=== PATIENT | female | born 1955 | race Hispanic/Latino ===

== ENCOUNTER 2018-03-09 17:00 | Inpatient (IN) | payer BC, OTHER ==
[2018-03-09 17:27] VITALS: BMI 30.5
--- NOTE | 2018-03-09 17:40 | ED PDOC ---
Arrival/HPI - General Historian: Patient - History of Present Illness Time/Duration: Prior to Arrival Symptom Onset: Sudden Symptom Course: Unchanged Activities at Onset: Light - General Time Seen by Provider: 03/09/18 17:12 - History of Present Illness Narrative History of Present Illness (Text): 03/09/18 17:28 62 yo F with PMHx of HTN, HLD, PVCs, DM, gastritis, kidney stones presenting to the ED from PMD office (Dr. Espana) for acute onset rapid Afib. Per patient, she was recently admitted to [facility] - Friday night this past week for sepsis in the setting of UTI, pyelonephritis. P atient denies any chest pain or palpitations currently. No fevers/chills, headaches, dizziness, sob, cough, abdominal pain, nausea/vomiting/diarrhea/constipation, dysuria, or changes in stool. PMHx: HTN, HLD, DM, PVCs, acute gastritis, kidney stones PSHx: denies Allergies: Sulfa--itchiness Home Medications: Livalo 2 mg PO daily, Januvet , Efflexor 75 mg PO daily, Coreg 40 mg PO daily, Amlodipine 10 mg PO daily, Losartan/HCTZ 100-25 PO daily, Xanax 0.5 mg PO TID prn, multivitamin 1 tablet daily, calcium + D3 1 tablet daily, ASA 81 mg PO daily, Pepcid 40 mg PO daily Social Hx: denies alcohol, tobacco, illicit drug use FHx: unknown PMD: Dr. 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 Cornejo ([facility]) Past Medical History - Provider Review Nursing Documentation Reviewed: Yes - Travel History Have you recently traveled outside [place] w/in the past 3 mons?: No Family/Social History - Physician Review Nursing Documentation Reviewed: Yes Family/Social History: Unknown Family HX Smoking Status: Never Smoked Hx Alcohol Use: No Hx Substance Use: No Hx Substance Use Treatment: No Allergies/Home Meds Allergies/Adverse Reactions: Allergies Sulfa (Sulfonamide Antibiotics) Allergy (Verified 03/09/18 17:27) ITCHING Home Medications: Home Meds Medication Instructions Recorded Confirmed Alprazolam [Xanax] 0.5 mg PO TID 03/09/18 03/09/18 Aspirin [Aspirin Chewable] 81 mg PO DAILY 03/09/18 03/09/18 Carvedilol [Coreg CR] 40 mg PO DAILY 03/09/18 03/09/18 Famotidine [Pepcid] 40 mg PO DAILY 03/09/18 03/09/18 Losartan/Hydrochlorothiazide 1 each PO DAILY 03/09/18 03/09/18 [Losartan-Hctz 100-25 mg Tab] Multivitamin/Iron/Folic Acid 1 each PO DAILY 03/09/18 03/09/18 [Multi Complete-Iron Tablet] Pitavastatin Calcium [Livalo] 2 mg PO DAILY 03/09/18 03/09/18 Sitagliptin Phos/Metformin HCl 1 each PO BID 03/09/18 03/09/18 [Janumet 50-1,000 mg Tablet] Venlafaxine [Effexor-XR] 75 mg PO DAILY 03/09/18 03/09/18 amLODIPine [Norvasc] 10 mg PO DAILY 03/09/18 03/09/18 Review of Systems - Review of Systems Constitutional: Normal Eyes: Normal ENT: Sinus Congestion Respiratory: Normal. absent: SOB, Cough, Wheezing Cardiovascular: Normal. absent: Chest Pain, Palpitations, Edema, Calf Pain, Syncope Gastrointestinal: Normal. absent: Abdominal Pain, Constipation, Diarrhea, Naus ea, Vomiting Genitourinary Female: Normal. absent: Dysuria, Frequency, Urine Output Changes Musculoskeletal: Normal Skin: Normal Neurological: Normal Endocrine: Normal Psychiatric: Normal Physical Exam Vital Signs Reviewed: Yes Temperature: Afebrile Blood Pressure: Hypotensive Pulse: Tachycardic Respiratory Rate: Normal Appearance: Positive for: Non-Toxic, Other (anxious) Mental Status: Positive for: Alert and Oriented X 3 - Systems Exam Head: Present: Atraumatic, Normocephalic Pupils: Present: PERRL Extroacular Muscles: Present: EOMI Conjunctiva: Present: Normal Mouth: Present: Moist Mucous Membranes Neck: Present: Normal Range of Motion Respiratory/Chest: Present: Clear to Auscultation. No: Respiratory Distress, Accessory Muscle Use, Wheezes, Rales, Rhonchi Cardiovascular: Present: Normal S1, S2, Irregular Rhythm Abdomen: Present: Normal Bowel Sounds. No: Tenderness, Distention, Rebound, Guarding, Mass/Organomegaly Back: Present: Normal Inspection Upper Extremity: Present: Normal Inspection, Normal ROM, NORMAL PULSES, Capillary Refill < 2s. No: Cyanosis, Edema Lower Extremity: Present: Normal Inspection, NORMAL PULSES, Capillary Refill < 2 s. No: Edema, CALF TENDERNESS, Tenderness Neurological: Present: CN II-XII Intact, Speech Normal, Motor Func Grossly Intact, Normal Sensory Function Skin: Present: Warm, Dry, Normal Color Psychiatric: Present: Alert, Oriented x 3, Normal Insight, Normal Concentration, Anxious Vital Signs Temp Pulse Resp BP Pulse Ox 03/09/18 18:40 144 H 120/79 03/09/18 17:54 166 H 117/53 L 03/09/18 17:39 98.0 F 123 H 18 105/59 L 98 Medical Decision Making - RAD Interpretation Acid Strength Inspector: ED Physician ED Course and Treatment: 03/09/18 19:[address] Noy Brito, ICU physician, and reviewed case. Patient to be given dose of beta-garrett and cleared for telemetry admission. (Theron Perez DO) 03/09/18 17:48 Impression: 62 yo F with PMHx of HTN, PVCs, DM, gastritis presenting to the ED with acute onset afib. Plan: -- CBC, CMP -- TSH, free T3 -- JOSE JUAN panel -- UA -- UCx, BCx -- CXR -- EKG -- monitor and disposition (Chuckie Robin) - Lab Interpretations Lab Results: 03/09/18 17:45 03/09/18 17:45 Lab Results 03/09/18 17:45: Total T3 0.99, TSH 3rd Generation 4.39 03/09/18 17:45: Sodium 137, Potassium 4.0, Chloride 99, Carbon Dioxide 27, Anion Gap 15, BUN 17, Creatinine 1.0, Est GFR ( Amer) > 60, Est GFR (Non-Af Amer) 56, Random Glucose 175 H, Calcium 9.0, Magnesium 1.6 L, Total Bilirubin 0.7, AST 32, ALT 29, Alkaline Phosphatase 156 H, Lactate Dehydrogenase 584, Total Creatine Kinase 25 L, Troponin I 0.03, Total Protein 6.9, Albumin 3.5, Globulin 3.4, Albumin/Globulin Ratio 1.0 L 03/09/18 17:45: WBC 19.1 H, RBC 3.86, Hgb 11.9 L, Hct 35.0 L, MCV 90.7, MCH 30.8, MCHC 34.0, RDW 13.7, Plt Count 315, MPV 10.1, Gran % 72.8 H, Lymph % (Auto) 14.7 L, [place] % (Auto) 11.6 H, Eos % (Auto) 0.6 L, Baso % (Auto) 0.3, Gran # 13.87 H, Lymph # (Auto) 2.8, [place] # (Auto) 2.2 H, Eos # (Auto) 0.1, Baso # (Auto) 0.05 - RAD Interpretation Narrative RAD Interpretations (Text): 03/09/18 17:53 No acute findings on CXR (Chuckie Robin) Radiology Orders: 03/09/18 17:28 CHEST PORTABLE [RAD] Stat - Medication Orders Current Medication Orders: Sodium Chloride (Sodium Chloride 0.9%) 1,000 mls @ 250 mls/hr IV .Q4H ONE Stop: 03/09/18 22:13 Last Admin: 03/09/18 18:42 Dose: 250 mls/hr eMAR Start Stop Document 03/09/18 18:42 EQ (Rec: 03/09/18 18:42 EQ [id number]) Intravenous Solution Start Date 03/09/18 Start Time 18:42 Discontinued Medications Diltiazem HCl (Cardizem) 20 mg IVP STAT STA Stop: 03/09/18 17:30 Last Admin: 03/09/18 17:54 Dose: 20 mg IVP Administration Document 03/09/18 17:54 EQ (Rec: 03/09/18 17:54 EQ [id number]) Charges for Administration # of IVP Administrations 1 MAR Pulse and Blood Pressure Document 03/09/18 17:54 EQ (Rec: 03/09/18 17:54 EQ [id number]) Pulse Pulse Rate (60-90) 166 Blood Pressure Blood Pressure (100/60-150/90) 117/53 Diltiazem HCl (Cardizem) 20 mg IVP STAT STA Stop: 03/09/18 18:15 Last Admin: 03/09/18 18:40 Dose: 20 mg IVP Administration Document 03/09/18 18:40 EQ (Rec: 03/09/18 18:42 EQ [id number]) Charges for Administration # of IVP Administrations 1 MAR Pulse and Blood Pressure Document 03/09/18 18:40 EQ (Rec: 03/09/18 18:42 EQ [id number]) Pulse Pulse Rate (60-90) 144 Blood Pressure Blood Pressure (100/60-150/90) 120/79 Metoprolol Tartrate (Lopressor) 5 mg IVP STAT STA Stop: 03/09/18 19:17 Disposition/Present on Arrival - Present on Arrival Any Indicators Present on Arrival: No - Disposition Have Diagnosis and Disposition been Completed?: Yes Disposition Time: 19:26 - Disposition Diagnosis: Uncontrolled atrial fibrillation Disposition: HOSPITALIZED Condition: STABLE Referrals: Evangelist Espana MD [Primary Care Provider] - Follow up with primary
--- NOTE | 2018-03-09 17:47 | RAD ---
Date of service: 03/09/2018 HISTORY: r/o infiltrate COMPARISON: No prior. FINDINGS: LUNGS: The lungs are well inflated. There is mild pulmonary venous congestion PLEURA: No significant pleural effusion identified, no pneumothorax apparent. CARDIOVASCULAR: Moderate cardiomegaly with left ventricular hypertrophy. OSSEOUS STRUCTURES: No significant abnormalities. VISUALIZED UPPER ABDOMEN: Normal. OTHER FINDINGS: None. IMPRESSION: No active pulmonary disease.
[2018-03-09 17:51] LABS: BASO # 0.05 K/mm3 (0.0-2.0); BASO % 0.3 % (0.0-3.0); EOS # 0.1 (0.0-0.7); EOS % 0.6 % (1.5-5.0); GRAN # 13.87 (1.4-6.5); GRAN % 72.8 % (50.0-68.0); HEMOGLOBIN 11.9 g/dL (12.0-16.0); LYMPH # 2.8 (1.2-3.4); LYMPH % 14.7 % (22.0-35.0); MEAN CELL VOLUME 90.7 fl (80.0-105.0); MEAN CORPUSCULAR HEMOGLOBIN 30.8 pg (25.0-35.0); MEAN PLATELET VOLUME 10.1 fl (7.0-11.0); MONO # 2.2 (0.1-0.6); MONO % 11.6 % (1.0-6.0); RBC 3.86 10^6/uL (3.5-6.1); RED CELL DISTRIBUTION WIDTH 13.7 % (11.5-14.5); WHITE BLOOD COUNT 19.1 10^3/ul (4.5-11.0)
[2018-03-09 18:00] LABS: ALBUMIN 3.5 g/dL (3.0-4.8); BLOOD UREA NITROGEN 17 mg/dL (7-21); GFR NON-AFRICAN AMERICAN 56
[2018-03-09 18:02] LABS: ALT/SGPT 29 U/L (7-56); AST/SGOT 32 U/L (14-36)
[2018-03-09 18:12] LABS: TROPONIN I 0.03 ng/mL
[2018-03-09] MEDS ORDERED: Sodium Chloride 0.9% 1,000 ML IV ONE (18:14)
[2018-03-09 18:43] LABS: T3 0.99 ng/mL (0.97-1.69)
[2018-03-09] MEDS ORDERED: Metoprolol 1 mg/ml Inj IVP STA (19:16)
[2018-03-09] MEDS ORDERED: Digoxin 500 mcg/2ml (0.5 mg/2ml) Inj IVP STA (19:36)
[2018-03-09] MEDS ORDERED: Sodium Chloride 0.9% 500 ML IV STA (19:52)
[2018-03-09 20:14] LABS: VENOUS BLOOD GAS PO2 82 mm/Hg (30-55); VENOUS BLOOD PH 7.38 (7.32-7.43)
[2018-03-09 20:31] VITALS: PULSE 140
[2018-03-09] MEDS ORDERED: Enoxaparin 80 mg Syringe SC SCH (21:15)
--- NOTE | 2018-03-09 22:41 | CP.PCM.CON ---
<Karen Rowley - Last Filed: 03/10/18 00:59> History of Present Illness - History of Present Illness History of Present Illness: ICU CONSULT NOTE FOR DR. FELIPE Rowley D.O. PGY-1 CC: Atrial fibrillation with rvr. Pt hypotensive after administration of cardizem. Leukocytosis 62 y/o F with PMH of previous PVCs, HTN, HLD, DM, Gastritis, Nephrolithiasis presented to [facility] after visiting his PMD Dr. Espana for a follow-up appointment. As per pt, she had recently been admitted to [facility] last week for UTI/pyelonephritis. She was initially admitted to ICU and subsequently transferred to medicine floors for monitoring at [facility]. She was eventually discharged with home antibiotics which she had not taken. Pt was sent to ED after being found to be in afib w/RVR during her outpatient visit this afternoon. She reports that she wasn't having any symptoms while at clinic, and was following up for "chronic gastritis" symptoms. She reports never having been diagnosed with atrial fibrillation previously and reports that she occasionally has feelings of "fluttering" without symptoms of chest pain, diophoresis, nausea, vomiting or sweating. 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 Cornejo, and had previously underwent a stress test for which she doesn't know the results. She denies fevers, chills, nausea, vomiting, headache, dizziness, chest pain, palpitations, nausea, vomiting, diarrhea, dysuria, hematuria. PMH: HTN, HLD, PVC, DM, Gastritis, Nephrolithiasis All: Sulfa PSH: b/l hip replacement, L elbow fracture, D&C SH: Denies smoking/alcohol/illicit drug use Hosp: [facility] last week for pyelonephritis/UTI (per pt) FH: Father: HTN. Mother: denies Meds: See AUG. Reviewed PMD: Dr. Espana Photo Checker: Dr. Cornejo Review of Systems - Review of Systems Review of Systems: as per HPI Past Patient History - Past Social History Smoking Status: Never Smoked - CARDIAC Hx Cardiac Disorders: Yes Hx Hypertension: Yes - RENAL Other/Comment: history of urosepsis - ENDOCRINE/METABOLIC Hx Endocrine Disorders: Yes Hx Diabetes Mellitus Type 2: Yes - MUSCULOSKELETAL/RHEUMATOLOGICAL Hx Arthritis: Yes - GENITOURINARY/GYNECOLOGICAL Hx Urinary Tract Infection: Yes - PSYCHIATRIC Hx Substance Use: No - SURGICAL HISTORY Hx Surgeries: Yes Hx Musculoskeletal Surgery: Yes (bilat hip) Hx Orthopedic Surgery: Yes (elbow) Hx Tonsillectomy: Yes - ANESTHESIA Hx Anesthesia: Yes Hx Anesthesia Reactions: No Hx Malignant Hyperthermia: No Meds Allergies/Adverse Reactions: Allergies Allergy/AdvReac Type Severity Reaction Status Date / Time Sulfa (Sulfonamide Allergy ITCHING Verified 03/09/18 17:27 Antibiotics) - Medications Medications: Current Medications Alprazolam (Xanax) 0.5 mg PO TID JAK PRN Reason: Protocol Aspirin (Aspirin Chewable) 81 mg PO DAILY JAK Docusate Sodium (Colace) 100 mg PO DAILY JAK Enoxaparin Sodium (Lovenox) 70 mg SC Q12H JAK PRN Reason: Protocol Famotidine (Pepcid) 40 mg PO DAILY [facility] Hydrochlorothiazide (Hydrodiuril) 25 mg PO DAILY [facility] Piperacillin Sod/Tazobactam Sod (Zosyn 3.375 In Ns 100ml) 100 mls @ 200 mls/hr IVPB Q6 JAK PRN Reason: Protocol Stop: 03/10/18 06:29 Gentamicin Sulfate 100 mg/ (Sodium Chloride) 102.5 mls @ 200 mls/hr IVPB Q12H JAK PRN Reason: Protocol diltiaZEM IVPB 100mg in NS (Cardizem 100mg In Ns) 100 mls @ 5 mls/hr IV .Q20H PRN; Protocol; 5 MG/HR PRN Reason: TITRATE PER MD ORDER Insulin Human Regular (Humulin R Low) 0 units SC ACHS JAK PRN Reason: Protocol Losartan Potassium (Cozaar) 100 mg PO DAILY [facility] Non-Formulary Medication (Carvedilol [Coreg Cr]) 40 mg PO DAILY JAK Venlafaxine HCl (Effexor Xr) 75 mg PO DAILY [facility] Physical Exam - Constitutional Appears: Well, Non-toxic, No Acute Distress - Head Exam Head Exam: NORMAL INSPECTION, NORMOCEPHALIC - Eye Exam Eye Exam: EOMI, Normal appearance - ENT Exam ENT Exam: Mucous Membranes Moist, Normal Exam - Neck Exam Neck exam: Positive for: Normal Inspection - Respiratory Exam Respiratory Exam: Clear to Auscultation Bilateral, NORMAL BREATHING PATTERN - Cardiovascular Exam Cardiovascular Exam: Tachycardia, Irregular Rhythm, +S1, +S2 - GI/Abdominal Exam GI & Abdominal Exam: Soft. absent: Rebound, Tenderness Additional comments: (-) suprapubic tenderness - Back Exam Back exam: NORMAL INSPECTION. absent: CVA tenderness (L), CVA tenderness (R) - Neurological Exam Neurological exam: Alert, Oriented x3 - Psychiatric Exam Psychiatric exam: Normal Affect, Normal Mood - Skin Skin Exam: Dry, Intact, Warm Results - Vital Signs Recent Vital Signs: Last Vital Signs Temp 98.0 F 03/09/18 17:39 Pulse 128 H 03/09/18 21:01 Resp 20 03/09/18 21:01 BP 131/52 L 03/09/18 21:01 Pulse Ox 98 03/09/18 21:01 - Labs Result Diagrams: 03/09/18 17:45 03/09/18 17:45 Labs: Laboratory Results - last 24 hr 03/09/18 20:09 pO2 82 H VBG pH 7.38 VBG pCO2 49.0 VBG HCO3 29.0 H VBG Total CO2 30.5 H VBG O2 Sat (Calc) 97.6 H VBG Base Excess 3.0 H VBG Potassium 4.1 Sodium 136.0 Chloride 104.0 Glucose 179 H Lactate 1.5 FiO2 21.0 Venous Blood Potassium 4.1 Assessment & Plan - Assessment and Plan (Free Text) Assessment: 62 y/o F with pmhx of HTN, HLD, PVC, DM, Gastritis, Nephrolithiasis admitted to telemetry for new-onset atrial fibrillation with RVR. ICU was consulted as pt was found to be hypotensive after receiving cardizem in ER. She was also found to have leukocytosis with WBC of 19.1. On telemetry, patient asymptomatic still in afib w/ RVR. She has been started on cardizem drip, cardiology has been consulted. Pt was recently admitted to [facility] for UTI/pyelonephritis and treated with IV antibiotics. She was discharged with home abx which she has not been taking. Plan: Neuro Pt A&O x 3, NAD [place] as necessary Cardio In new-onset Afib w/ RVR with HR in 130s. Pt found in Afib RVR today afternoon (<24 hours) in outpatient clinic [id number] score: 3 Received cardizem 20mg IVP x 2, Digoxin 0.25 IVP in ED. Was hypotensive in ED with BP 70/50s. Returned to normotensive and transferred to telemetry floor Asymptomatic Titrate cardizem drip Start therapeutic Lovenox 90 mg (1mg/kg) bid Bridge lovenox to warfarin with INR goal 2.0-3.0 f/u Echocardiogram Consult cardiology, appreciate recs Pulm Chest CTA b/l u/l lobes Pt denies SOB, wheezing GI Pt complains of constipation. Start colace Pepcid for GI ppx Recently admitted for UTI/Pyelonephritis Pt afebrile, normotensive. WBC 19.1 Empiric Zosyn/Gentamicin/Cefepime started F/u procalcitonin f/u U/A f/u Urine/blood cx No CVA tenderness b/l. No suprapubic tenderness. ID Recently admitted for UTI/pyelonephritis WBC 19.1, Lactate 1.5 normotensive, afebrile Received 500mL bolus of NS and 1L @ 250ML/hr in ED. F/u Echo for systolic function Start empiric treament with zosyn/gentamicin. Continue with cefepime F/u u/a, urine/blood cultures/ procalcitonin Endocrine Pt has hx of DM Start SS insulin f/u Hgb A1c f/u lipid panel f/u TSH Heme Start lovenox 90 mg (1mg/kg) bid bridge lovenox to warfarin with INR goal 2.0-3.0 f/u pt/ptt/inr f/u D-Dimer Pt seen, examined and discussed with attending physician, Dr. Brito. Further recs per her. <Demarco Brito - Last Filed: 03/10/18 19:00> Meds - Medications Medications: Current Medications Alprazolam (Xanax) 0.5 mg PO TID [facility]; Protocol Last Admin: 03/10/18 17:19 Dose: 0.5 mg Aspirin (Aspirin Chewable) 81 mg PO DAILY JAK Last Admin: 03/10/18 10:00 Dose: 81 mg Docusate Sodium (Colace) 100 mg PO DAILY [facility] Last Admin: 03/10/18 10:00 Dose: 100 mg Enoxaparin Sodium (Lovenox) 90 mg SC Q12H JAK; Protocol Last Admin: 03/10/18 12:00 Dose: 90 mg Famotidine (Pepcid) 40 mg PO DAILY [facility] Last Admin: 03/10/18 10:00 Dose: 40 mg Hydrochlorothiazide (Hydrodiuril) 25 mg PO DAILY [facility] Last Admin: 03/10/18 10:00 Dose: 25 mg diltiaZEM IVPB 100mg in NS (Cardizem 100mg In Ns) 100 mls @ 5 mls/hr IV .Q20H PRN; Protocol PRN Reason: TITRATE PER MD ORDER Last Admin: 03/10/18 14:04 Dose: 10 mg/hr, 10 mls/hr Cefepime HCl (Maxipime 1gm) 1 gm in 100 mls @ 100 mls/hr IVPB Q8 [facility]; Protocol Last Admin: 03/10/18 13:57 Dose: 100 mls/hr Insulin Human Regular (Humulin R Low) 0 units SC ACHS [facility]; Protocol Last Admin: 03/10/18 17:18 Dose: 1 u Losartan Potassium (Cozaar) 100 mg PO DAILY [facility] Last Admin: 03/10/18 10:00 Dose: 100 mg Non-Formulary Medication (Carvedilol [Coreg Cr]) 40 mg PO DAILY [facility] Last Admin: 03/10/18 13:44 Dose: Not Given Venlafaxine HCl (Effexor Xr) 75 mg PO DAILY [facility] Last Admin: 03/10/18 10:00 Dose: 75 mg Warfarin Sodium (Coumadin) 2 mg PO 1800 [facility]; Protocol Last Admin: 03/10/18 17:19 Dose: 2 mg Results - Vital Signs Recent Vital Signs: Last Vital Signs Temp 98.3 F 03/10/18 12:00 Pulse 102 H 03/10/18 12:00 Resp 18 03/10/18 12:00 BP 117/69 03/10/18 12:00 Pulse Ox 96 03/10/18 00:01 - Labs Result Diagrams: 03/10/18 06:20 03/09/18 17:45 Labs: Laboratory Results - last 24 hr 03/09/18 03/09/18 03/10/18 20:09 23:27 00:02 WBC RBC Hgb Hct MCV MCH MCHC RDW Plt Count MPV Gran % Lymph % (Auto) [place] % (Auto) Eos % (Auto) Baso % (Auto) Gran # Lymph # (Auto) [place] # (Auto) Eos # (Auto) Baso # (Auto) PT INR D-Dimer, Quantitative pO2 82 H VBG pH 7.38 VBG pCO2 49.0 VBG HCO3 29.0 H VBG Total CO2 30.5 H VBG O2 Sat (Calc) 97.6 H VBG Base Excess 3.0 H VBG Potassium 4.1 Sodium 136.0 Chloride 104.0 Glucose 179 H Lactate 1.5 FiO2 21.0 POC Glucose (mg/dL) 154 H Hemoglobin A1c Triglycerides Cholesterol LDL Cholesterol Direct HDL Cholesterol Procalcitonin 4.25 H TSH 3rd Generation Venous Blood Potassium 4.1 03/10/18 03/10/18 03/10/18 00:02 06:20 06:20 WBC 15.7 H RBC 3.31 L Hgb 9.9 L D Hct 30.1 L MCV 90.9 MCH 29.9 MCHC 32.9 RDW 13.8 Plt Count 334 MPV 10.3 Gran % 74.5 H Lymph % (Auto) 13.6 L [place] % (Auto) 10.8 H Eos % (Auto) 0.8 L Baso % (Auto) 0.3 Gran # 11.70 H Lymph # (Auto) 2.1 [place] # (Auto) 1.7 H Eos # (Auto) 0.1 Baso # (Auto) 0.04 PT 13.8 H INR 1.21 D-Dimer, Quantitative 4252 H pO2 VBG pH VBG pCO2 VBG HCO3 VBG Total CO2 VBG O2 Sat (Calc) VBG Base Excess VBG Potassium Sodium Chloride Glucose Lactate FiO2 POC Glucose (mg/dL) Hemoglobin A1c Triglycerides 140 Cholesterol 70 L LDL Cholesterol Direct < 30 HDL Cholesterol 15 L Procalcitonin TSH 3rd Generation Venous Blood Potassium 03/10/18 03/10/18 03/10/18 06:20 06:20 07:21 WBC RBC Hgb Hct MCV MCH MCHC RDW Plt Count MPV Gran % Lymph % (Auto) [place] % (Auto) Eos % (Auto) Baso % (Auto) Gran # Lymph # (Auto) [place] # (Auto) Eos # (Auto) Baso # (Auto) PT INR D-Dimer, Quantitative pO2 VBG pH VBG pCO2 VBG HCO3 VBG Total CO2 VBG O2 Sat (Calc) VBG Base Excess VBG Potassium Sodium Chloride Glucose Lactate FiO2 POC Glucose (mg/dL) 143 H Hemoglobin A1c 6.8 H Triglycerides Cholesterol LDL Cholesterol Direct HDL Cholesterol Procalcitonin TSH 3rd Generation 3.17 Venous Blood Potassium 03/10/18 11:09 WBC RBC Hgb Hct MCV MCH MCHC RDW Plt Count MPV Gran % Lymph % (Auto) [place] % (Auto) Eos % (Auto) Baso % (Auto) Gran # Lymph # (Auto) [place] # (Auto) Eos # (Auto) Baso # (Auto) PT INR D-Dimer, Quantitative pO2 VBG pH VBG pCO2 VBG HCO3 VBG Total CO2 VBG O2 Sat (Calc) VBG Base Excess VBG Potassium Sodium Chloride Glucose Lactate FiO2 POC Glucose (mg/dL) 267 H Hemoglobin A1c Triglycerides Cholesterol LDL Cholesterol Direct HDL Cholesterol Procalcitonin TSH 3rd Generation Venous Blood Potassium Addendum Addendum: 03/10/18 18:52 with hx of htn ,dm hdl . prented to ER for atrial fib with rapid vent rate ,in the ER pt was given cardiazem 20 mg x2 with drop of bp to 97 systolic and hr sti ll in 130 could not be placed on cardiazem drip so icu consult was called . pt recently was admitted to [facility] fo uti and d/c with antibiotic Rx which pt did not fill and was not feeling goog went to see PMD where she was noted with atrial f ib with rapid vent rate and low bp was sent to er for further management pt had wbc of 19,000. so i rx fluid bolous and bp increased to [address] arted also on antibiotics with kothari c/s . and pt was admitted to telemetry.
[2018-03-09] MEDS: Cefepime 1gm in NS 100ml 1 GM/100 ML BAG IVPB SCH (23:32)
[2018-03-09] MEDS: diltiaZEM IVPB 100mg in NS 100 ML IV PRN (23:33)
[2018-03-10] MEDS ORDERED: Piperacillin/Tazobact 3.375 gm 100 ML IVPB SCH
[2018-03-10 00:35] LABS: INR 1.21; PROTHROMBIN TIME 13.8 SECONDS (9.4-12.5)
[2018-03-10] MEDS: Insulin Reg-LOW-Coverage SC SCH ×5 (01:03→22:24)
[2018-03-10] MEDS: Enoxaparin 100 mg Syringe SC SCH ×3 (01:03→23:25)
[2018-03-10] MEDS: Cefepime 1gm in NS 100ml 1 GM/100 ML BAG IVPB SCH ×3 (06:11→22:32)
[2018-03-10 07:34] LABS: BASO # 0.04 K/mm3 (0.0-2.0); BASO % 0.3 % (0.0-3.0); EOS # 0.1 (0.0-0.7); EOS % 0.8 % (1.5-5.0); GRAN # 11.7 (1.4-6.5); GRAN % 74.5 % (50.0-68.0); HEMOGLOBIN 9.9 g/dL (12.0-16.0); LYMPH # 2.1 (1.2-3.4); LYMPH % 13.6 % (22.0-35.0); MEAN CELL VOLUME 90.9 fl (80.0-105.0); MEAN CORPUSCULAR HEMOGLOBIN 29.9 pg (25.0-35.0); MEAN CORPUSCULAR HGB CONC 32.9 g/dl (31.0-37.0); MEAN PLATELET VOLUME 10.3 fl (7.0-11.0); MONO # 1.7 (0.1-0.6); MONO % 10.8 % (1.0-6.0); RBC 3.31 10^6/uL (3.5-6.1); RED CELL DISTRIBUTION WIDTH 13.8 % (11.5-14.5); WHITE BLOOD COUNT 15.7 10^3/ul (4.5-11.0)
[2018-03-10 07:46] LABS: HDL CHOLESTEROL 15 mg/dL (29-60)
[2018-03-10 07:57] LABS: LDL CHOLESTEROL < 30 mg/dL (0-129)
--- NOTE | 2018-03-10 09:48 | CARD ---
APPROVED REPORT Date of service: 03/09/2018 EKG Measurement Heart [id number] <Conclusion> Atrial fibrillation with rapid ventricular response Nonspecific ST abnormality
--- NOTE | 2018-03-10 09:55 | HP ---
HISTORY OF PRESENT ILLNESS: A 62-year-old white female, history of hip replacement in the past. The patient recently was discharged approximately 48 hours ago from [facility]. She had gone to the outpatient [facility] ER on [address] in [place], was found to have a low blood pressure, a low-grade fever and elevated white blood cells count. The patient because of the hypotension was transferred to [place] from the ER at [facility] and was admitted to the Intensive Care Unit where she was rehydrated and eventually was transferred to the floor, was found to have a cholelithiasis without cholecystitis, found to have a nephrolithiasis without obstruction, eventually was hydrated and discharged home. The patient came to my office approximately 48 hours after her discharge, seen in my office, complaining of chills, sweating, lightheadedness, dizziness. The patient was found in the office to have rapid atrial fibrillation ventricular response of 150 and new onset of atrial fibrillation. The patient recently had a colonoscopy. Does state that she did not have prophylactic antibiotics despite having a hip replacement several years ago. The patient was transferred to the emergency room at [facility] and admitted. REVIEW OF SYSTEMS: Positive only for diaphoresis, dizziness, lightheadedness. The patient denies chest pain, shortness of breath, palpitations, fever, chills. The patient denies any nausea or vomiting. Denies any constipation or diarrhea or blood per rectum. The patient denies any cough, shortness of breath or sputum production. The patient denies any headache, change in mental status, any loss of feeling in the upper or lower extremity, any loss of strength in the upper or lower extremities and any change in her vision or speech. PAST MEDICAL HISTORY: Only pertinent for hypertension, hip replacement, history of breast cancer in the past. The patient also has a history of noninsulin-dependent diabetes mellitus. ALLERGIES: THE PATIENT HAS NO KNOWN ALLERGIES. SOCIAL HISTORY: She has history of only social alcohol use and no history of IV drug abuse. The patient is a nonsmoker. FAMILY HISTORY: Only pertinent for degenerative arthritis, hypertension and prostate cancer in her father, breast cancer in her mother. MEDICATIONS: At home, she was taking losartan, hydrochlorothiazide and insulin. She is also at home taking iron, aspirin, losartan and hydrochlorothiazide, Xanax, amlodipine, Effexor, carvedilol, Janumet and Livalo for cholesterol. PHYSICAL EXAMINATION: GENERAL: Physical examination shows a well-developed, slightly obese white female, in mild distress. HEENT: Essentially within normal limits. HEART: Irregular rate and rhythm with elevated ventricular response. CHEST: Clear to auscultation. ABDOMEN: Distended. Bowel sounds are hypoactive. There is no organomegaly. There are no masses palpable. EXTREMITIES: Without cyanosis, clubbing or edema. IMPRESSION: New onset of atrial fibrillation in a patient with a history of hypertension, noninsulin-dependent diabetes mellitus, hypercholesterolemia, anxiety disorder and recent admission with sepsis syndrome to [facility] and hypertension. Evangelist Espana MD
[2018-03-10] MEDS ORDERED: Non Formulary Medication (Losartan/Hydrochlorothiazide [Losartan-Hctz 100-25 Mg Tab] 1 EAC PO SCH (10:00)
[2018-03-10] MEDS: Venlafaxine 75 mg ER Cap PO SCH (10:00)
[2018-03-10] MEDS: Non Formulary Medication (Carvedilol [Coreg Cr] 40 MG) PO SCH (13:44)
[2018-03-10] MEDS: diltiaZEM IVPB 100mg in NS 100 ML IV PRN ×2 (14:04→20:37)
--- NOTE | 2018-03-10 18:18 | CARD ---
APPROVED REPORT Date of service: 03/10/2018 EXAM: Two-dimensional and M-mode echocardiogram with Doppler and color Doppler. INDICATION Atrial Fibrillation 2D DIMENSIONS Left Atrium (2D)5.0 (1.6-4.0cm)IVSd1.4 (0.7-1.1cm) LVDd4.5 (3.9-5.9cm)PWd1.3 (0.7-1.1cm) LVDs3.4 (2.5-4.0cm)FS (%) 24.3 % LVEF (%)49.0 (>50%) M-Mode DIMENSIONS Aortic Root2.50 (2.2-3.7cm)Aortic Cusp Exc.1.80 (1.5-2.0cm) Aortic Valve AoV Peak Qsbwmcha946.0cm/Matthias Peak GR.16mmHg Mitral Valve E/A ratio0.0 TDI E/Lateral E'0.0E/Medial E'0.0 Tricuspid Valve TR Peak [id number] [id number] Peak Gr.32mmHg [id number] LEFT VENTRICLE The left ventricle is normal size. There is mild concentric left ventricular hypertrophy. The left ventricular function is normal. The left ventricular ejection fraction is within the normal range. There is normal LV segmental wall motion. RIGHT VENTRICLE The right ventricle is normal size. The right ventricular systolic function is normal. ATRIA The left atrium is moderately dilated. The right atrium size is normal. The interatrial septum is intact with no evidence for an atrial septal defect. AORTIC VALVE The aortic valve is mildly sclerotic. There is trace aortic regurgitation. There is no aortic valvular stenosis. MITRAL VALVE The mitral valve is moderately thickened. Mitral regurgitation is moderate to severe. TRICUSPID VALVE The tricuspid valve is normal in structure. There is mild tricuspid regurgitation. PULMONIC VALVE The pulmonary valve is normal in structure. GREAT VESSELS The aortic root is normal in size. The IVC is normal in size and collapses >50% with inspiration. PERICARDIAL EFFUSION There is no pleural effusion. There is no pericardial effusion. <Conclusion> Dilated LA. Normal LV size and systolic function. Mild concentric LVH. Moderate to severe MR. Mild TR.
[2018-03-11] MEDS: diltiaZEM IVPB 100mg in NS 100 ML IV PRN ×2 (01:45→05:39)
[2018-03-11] MEDS: Cefepime 1gm in NS 100ml 1 GM/100 ML BAG IVPB SCH ×3 (05:19→20:59)
[2018-03-11 06:47] VITALS: O2SAT 96
[2018-03-11 09:48] LABS: BASO # 0.02 K/mm3 (0.0-2.0); BASO % 0.2 % (0.0-3.0); EOS # 0.1 (0.0-0.7); EOS % 0.8 % (1.5-5.0); GRAN # 9.01 (1.4-6.5); GRAN % 72.4 % (50.0-68.0); HEMOGLOBIN 10.8 g/dL (12.0-16.0); LYMPH # 2.5 (1.2-3.4); MEAN CELL VOLUME 91.6 fl (80.0-105.0); MEAN CORPUSCULAR HEMOGLOBIN 30.3 pg (25.0-35.0); MEAN PLATELET VOLUME 9.7 fl (7.0-11.0); MONO # 0.8 (0.1-0.6); MONO % 6.6 % (1.0-6.0); RBC 3.57 10^6/uL (3.5-6.1); RED CELL DISTRIBUTION WIDTH 13.6 % (11.5-14.5); WHITE BLOOD COUNT 12.4 10^3/ul (4.5-11.0)
[2018-03-11] MEDS: Insulin Reg-LOW-Coverage SC SCH ×4 (09:57→21:42)
[2018-03-11] MEDS: Venlafaxine 75 mg ER Cap PO SCH (09:57)
[2018-03-11] MEDS: diltiaZEM 180 mg/24 Hours CD Cap PO SCH (10:00)
[2018-03-11] MEDS: Non Formulary Medication (Carvedilol [Coreg Cr] 40 MG) PO SCH (10:01)
--- NOTE | 2018-03-11 10:07 | PN ---
DATE: 03/11/2018 She is a 62-year-old white female admitted to the hospital with leukocytosis 19,000 and new onset of atrial fibrillation with a rapid ventricular response. The patient has been on the rate control. She had been on blood thinners. She had been on IV antibiotics. She was seen in consultation by Dr. Cornejo for Cardiology and by Dr. Demarco Brito for Infectious Disease. She is on IV antibiotics. The patient's heart rate is controlled into the 90s today. She is afebrile. Vital signs are stable. Blood culture so far are negative. She has a blood pressure 118/62, heart rate is between 70 and 90. The patient had an echocardiogram done yesterday which revealed left atrial size of 5, markedly elevated and also severe MR. The patient is not complaining of shortness of breath, chest pain or dyspnea on exertion. Normal LV size and systolic function, [id number] MR and mild TR. The patient is on blood thinners and rate control. The patient will be ambulated. Follow up on urine culture also and repeat white count. We will discuss possible discharge with Dr. Cornejo. We will switch the patient from Lovenox to Eliquis and we will also stop the Coumadin. Heart examination, regular rate with controlled ventricular response. Chest is clear to auscultation and percussion. Abdomen is soft, benign. Extremities: No cyanosis, clubbing or edema. The patient is alert and oriented x3. Evangelist Espana MD
[2018-03-11 10:10] LABS: ALT/SGPT 32 U/L (7-56); AST/SGOT 22 U/L (14-36); BLOOD UREA NITROGEN 15 mg/dL (7-21); CALCIUM 9.4 mg/dL (8.4-10.5); GFR NON-AFRICAN AMERICAN > 60
[2018-03-11 12:02] VITALS: RESP 20
--- NOTE | 2018-03-12 01:19 | CON ---
DATE: 03/11/2018 REQUESTING PHYSICIAN: Evangelist Espana MD REASON FOR CONSULTATION: Atrial fibrillation. HISTORY OF PRESENT ILLNESS: This is a 62-year-old woman known to me from outpatient evaluation who was admitted with atrial fibrillation, rapid ventricular response. She was seen at [facility] satellite emergency room last week with fever and diaphoresis. She was advised hospital admission and was taken to [facility]. She was treated for UTI at that time and before it was found to have some nephrolithiasis. She was febrile to 102. Blood cultures were negative. She was discharge home and was seen by Dr. Espana the day of admission and was noted to be in atrial fibrillation with rapid ventricular response. She was sent to emergency room and given IV Cardizem and developed transient hypotension. She is currently on telemetry and has remained hemodynamically stable, but remains in atrial fibrillation. She has undergone a recent stress test, which was unremarkable. She does have chronic mitral valve disease. PAST MEDICAL HISTORY: Known for the problems mentioned above. She has a history of hypertension, diabetes, hyperlipidemia, multiple PVCs in the past and gastroesophageal reflux disease. She has undergone prior bilateral hip replacement and prior D&C and left elbow surgery for fracture. CURRENT MEDICATIONS: Include aspirin, diltiazem 180 mg daily, carvedilol 40 mg daily, Cozaar 100 mg daily, Effexor 75 mg daily, Eliquis 5 mg b.i.d., insulin coverage, Maxipime, Pepcid and Xanax. OBJECTIVE: GENERAL: She is an anxious-appearing middle-aged woman. VITAL SIGNS: Her blood pressure is 136/62 with a pulse of 80 in atrial fibrillation, respirations are 14. She is afebrile. HEENT: Normocephalic, atraumatic. NECK: Supple. No JVD noted. CHEST: Few scattered rhonchi heard. HEART: PMI displaced laterally with a soft systolic murmur present at the apex. ABDOMEN: Soft, nontender, normoactive bowel sounds. EXTREMITIES: No clubbing, cyanosis or edema. SKIN: Warm and dry. PSYCHIATRIC: Mild anxiety, otherwise normal mood and affect. NEUROLOGICAL: Alert and oriented x3. No gross motor or sensory is appreciable. DIAGNOSTIC DATA: Potassium 4.4, BUN and creatinine 15 and 0.7. White count 12.4, hemoglobin and hematocrit 10.8 and 32.7 with platelet count 422,000. TSH 3.17. Cholesterol 70 with LDL less than 30 and HDL 15. Echocardiogram revealed atrial fibrillation with rapid ventricular response and secondary ST-T changes. Chest x-ray revealed large cardiac silhouette with clear lung navarro. Echocardiogram revealed dilated left atrium with normal left ventricle size and function, mild concentric LVH, [id number] mitral regurgitation and mild tricuspid regurgitation. IMPRESSION: 1. Recent onset atrial fibrillation, likely related to valvular heart disease and hypertensive heart disease. Currently with rate controlled. 2. Recent febrile illness, full details unclear. 3. History of hypertension, hyperlipidemia and diabetes. 4. Negative stress test in the past. RECOMMENDATIONS: At this time, a rate controlled therapy appears most appropriate for her atrial fibrillation. Anticoagulant therapy with Eliquis certainly appropriate given her CHADS-VASc score of 3. She appears fairly asymptomatic from her atrial fibrillation as long as rate control is maintained. Aggressive attempts to convert to sinus rhythm may not be necessary and given the presence of valvular heart disease likely a long-term maintenance of sinus rhythm may not be very high. Her old records are reviewed and we will continue to follow and make further recommendations as appropriate. Thank you for this consultation. Puneet Cornejo MD
[2018-03-12] MEDS: Cefepime 1gm in NS 100ml 1 GM/100 ML BAG IVPB SCH (04:59)
[2018-03-12 06:42] VITALS: TEMP 98.4
[2018-03-12] MEDS: Insulin Reg-LOW-Coverage SC SCH (08:16)
--- NOTE | 2018-03-12 08:46 | CP.PCM.PN ---
Subjective - Date & Time of Evaluation Date of Evaluation: 03/12/18 Time of Evaluation: 07:00 - Subjective Subjective: Stable on 2R. No CP or SOB. She feels better. V/S noted. AF 90's PE: Lungs: clear Cor. irreg S1S2, sys. murmur Abd.: soft Ext.: manager android edema Neuro.: alert I/O = 250/600 recrded BC X2 NG at 48 hrs Echo noted: NL lV, mod/sev MR, mild TR Objective - Vital Signs/Intake and Output Vital Signs (last 24 hours): Temp Pulse Resp BP Pulse Ox 98.4 F 96 H 20 116/60 96 03/12/18 06:00 03/12/18 06:00 03/12/18 06:00 03/12/18 06:00 03/12/18 06:00 Intake and Output: 03/12/18 03/12/18 06:59 18:59 Intake Total 120 Output Total 600 Balance -480 - Medications Medications: Current Medications Alprazolam (Xanax) 0.5 mg PO TID [facility]; Protocol Last Admin: 03/11/18 17:29 Dose: 0.5 mg Apixaban (Eliquis) 5 mg PO BID [facility]; Protocol Last Admin: 03/11/18 17:29 Dose: 5 mg Diltiazem HCl (Cardizem Cd) 180 mg PO DAILY [facility] Last Admin: 03/11/18 10:00 Dose: 180 mg Docusate Sodium (Colace) 100 mg PO DAILY [facility] Last Admin: 03/11/18 09:59 Dose: 100 mg Famotidine (Pepcid) 40 mg PO DAILY [facility] Last Admin: 03/11/18 10:00 Dose: 40 mg Cefepime HCl (Maxipime 1gm) 1 gm in 100 mls @ 100 mls/hr IVPB Q8 [facility]; Protocol Last Admin: 03/12/18 04:59 Dose: 100 mls/hr Insulin Human Regular (Humulin R Low) 0 units SC ACHS [facility]; Protocol Last Admin: 03/12/18 08:16 Dose: 1 u Losartan Potassium (Cozaar) 100 mg PO DAILY [facility] Last Admin: 03/11/18 10:00 Dose: 100 mg Non-Formulary Medication (Carvedilol [Coreg Cr]) 40 mg PO DAILY [facility] Last Admin: 03/11/18 10:01 Dose: Not Given Venlafaxine HCl (Effexor Xr) 75 mg PO DAILY [facility] Last Admin: 03/11/18 09:57 Dose: 75 mg - Labs Labs: 03/11/18 09:30 03/11/18 09:30 PT 13.8 SECONDS (9.4-12.5) H 03/10/18 00:02 INR 1.21 03/10/18 00:02 Assessment and Plan - Assessment and Plan (Free Text) Assessment: AF with RVR Recent UTI/renal stones HBP Mod./Sev. MR, Mild TR on echo Plan: AB Continue current meds for rate control. Titrate as out-pt. Eliquis OOB/Ambulate. Home later today, as per Dr. Espana Out-pt cardiology f/u 1 week.
[2018-03-12] MEDS: Non Formulary Medication (Carvedilol [Coreg Cr] 40 MG) PO SCH (10:14)
[2018-03-12] MEDS: diltiaZEM 180 mg/24 Hours CD Cap PO SCH (10:14)
[2018-03-12] MEDS: Venlafaxine 75 mg ER Cap PO SCH (10:14)
[2018-03-12 10:15] VITALS: BP 118/88; PULSE 131
== END 2018-03-12 12:00 | disposition home or self-care (01) | DRG 310 ==
LOC: ED 17:00 → ERH 19:22 → 2RNO 21:50
PROVIDERS: ADMIT Internal Medicine; ATTEND Internal Medicine
DX: I48.91 Unspecified atrial fibrillation (principal); D72.829 Elevated white blood cell count, unspecified; E11.9 Type 2 diabetes mellitus without complications; E78.5 Hyperlipidemia, unspecified; I10 Essential (primary) hypertension; K59.00 Constipation, unspecified; Z79.82 Long term (current) use of aspirin; K29.50 Unspecified chronic gastritis without bleeding; M19.90 Unspecified osteoarthritis, unspecified site; Z96.642 Presence of left artificial hip joint; Z79.899 Other long term (current) drug therapy; Z82.49 Family history of ischemic heart disease and other diseases of the circulatory system; Z87.440 Personal history of urinary (tract) infections; Z87.442 Personal history of urinary calculi; Z88.2 Allergy status to sulfonamides

== ENCOUNTER 2018-04-16 06:53 | Inpatient (IN) | payer BC ==
[2018-04-16 06:53] VITALS: PULSE 140
[2018-04-16] MEDS ORDERED: Sodium Chloride 0.9% 1,000 ML IV ONE (07:19)
--- NOTE | 2018-04-16 07:19 | ED PDOC ---
Arrival/HPI - General Chief Complaint: Abdominal Pain Time Seen by Provider: 04/16/18 07:09 Historian: Patient - History of Present Illness Narrative History of Present Illness (Text): 04/16/18 07:18 62 year old female, whose past medical history includes hypertension, HLD, PVCs, diabetes, gastritis, kidney stones, recently diagnosed with a-fib, presents to the emergency department complaining of right-sided abdominal pain that began 2 hours prior to arrival. Patient states the pain woke her up from her sleep. Patient said she was recently admitted for at [facility] 03/05/18 for UTI and said they found a kidney stone and gallstone. Patient states she was suppose to have the stones removed, but could not due to her recent diagnosis of a-fib. Patient denies any fever, chills, chest pain, shortness of breath, nausea, vomiting, diarrhea, urinary symptoms, back pain, neck pain, headache, dizziness, or any other complaints. PMD: Dr. Espana Oxygen Therapy Teacher: Dr. Cornejo Time/Duration: Other (2 hours) Symptom Onset: Sudden Symptom Course: Unchanged Activities at Onset: Sleeping Context: Home Past Medical History - Provider Review Nursing Documentation Reviewed: Yes - Cardiac Hx Cardiac Disorders: Yes Hx Hypertension: Yes - Pulmonary Hx Respiratory Disorders: No - Neurological Hx Neurological Disorder: No - HEENT Hx HEENT Disorder: No - Renal Other/Comment: history of urosepsis - Endocrine/Metabolic Hx Diabetes Mellitus Type 2: Yes - Hematological/Oncological Hx Blood Disorders: No - Integumentary Hx Dermatological Disorder: No - Musculoskeletal/Rheumatological Hx Arthritis: Yes - Gastrointestinal Hx Gastrointestinal Disorders: Yes Other/Comment: gastritis - Genitourinary/Gynecological Hx Urinary Tract Infection: Yes - Psychiatric Hx Psychophysiologic Disorder: Yes Hx Anxiety: Yes Hx Depression: Yes Hx Substance Use: No - Surgical History Hx Musculoskeletal Surgery: Yes (bilat hip) Hx Orthopedic Surgery: Yes (elbow) Hx Tonsillectomy: Yes - Anesthesia Hx Anesthesia: Yes Hx Anesthesia Reactions: No Hx Malignant Hyperthermia: No Family/Social History - Physician Review Nursing Documentation Reviewed: Yes Family/Social History: No Known Family HX Smoking Status: Never Smoked Hx Alcohol Use: No Hx Substance Use: No Hx Substance Use Treatment: No Allergies/Home Meds Allergies/Adverse Reactions: Allergies Sulfa (Sulfonamide Antibiotics) Allergy (Verified 04/16/18 12:03) ITCHING Home Medications: Home Meds Medication Instructions Recorded Confirmed Alprazolam [Xanax] 0.5 mg PO TID 03/09/18 04/16/18 Aspirin [Aspirin Chewable] 81 mg PO DAILY 03/09/18 04/16/18 Carvedilol [Coreg Cr] 40 mg PO DAILY 03/09/18 04/16/18 Famotidine [Pepcid] 40 mg PO DAILY 03/09/18 04/16/18 Multivitamin/Iron/Folic Acid 1 each PO DAILY 03/09/18 04/16/18 [Multi Complete-Iron Tablet] Pitavastatin Calcium [Livalo] 2 mg PO DAILY 03/09/18 04/16/18 Sitagliptin Phos/Metformin HCl 1 each PO BID 03/09/18 04/16/18 [Janumet 50-1,000 mg Tablet] Venlafaxine [Effexor XR] 75 mg PO DAILY 03/09/18 04/16/18 Review of Systems - Physician Review All systems were reviewed & negative as marked: Yes - Review of Systems Constitutional: absent: Fevers, Other (Chills) Respiratory: absent: SOB Cardiovascular: absent: Chest Pain Gastrointestinal: Abdominal Pain. absent: Diarrhea, Nausea, Vomiting Genitourinary Female: absent: Dysuria, Frequency, Hematuria Musculoskeletal: absent: Back Pain, Neck Pain Neurological: absent: Headache, Dizziness Physical Exam Vital Signs Reviewed: Yes Vital Signs Temp Pulse Resp BP Pulse Ox 04/16/18 07:05 98.7 F 117 H 18 147/66 92 L Temperature: Afebrile Blood Pressure: Normal Pulse: Tachycardic Respiratory Rate: Normal Appearance: Positive for: Well-Appearing, Non-Toxic, Comfortable Pain Distress: None Mental Status: Positive for: Alert and Oriented X 3 - Systems Exam Head: Present: Atraumatic, Normocephalic Pupils: Present: PERRL Extroacular Muscles: Present: EOMI Conjunctiva: Present: Normal Mouth: Present: Moist Mucous Membranes Neck: Present: Normal Range of Motion Respiratory/Chest: Present: Clear to Auscultation, Good Air Exchange. No: Respiratory Distress, Accessory Muscle Use Cardiovascular: Present: Regular Rate and Rhythm, Normal S1, S2. No: Murmurs Abdomen: Present: Tenderness (Mild epigastric and right upper quadrant tenderness). No: Distention, Peritoneal Signs Back: Present: Normal Inspection. No: CVA Tenderness Upper Extremity: Present: Normal Inspection. No: Cyanosis, Edema Lower Extremity: Present: Normal Inspection. No: Edema Neurological: Present: GCS=15, CN II-XII Intact, Speech Normal Skin: Present: Warm, Dry, Normal Color. No: Rashes Psychiatric: Present: Alert, Oriented x 3, Normal Insight, Normal Concentration Medical Decision Making ED Course and Treatment: 04/16/18 07:18 Impression: 62 year old female presents complaining of sudden onset of right-sided abdominal paint hat began 2 hours prior to arrival. Plan: -- ABD & Pelvis CT w/ IV Contrast -- Labs -- IV Fluids, Toradol -- Urine Culture -- Urinalysis -- US Complete abdomen -- Reassess and disposition Prior Visits: Notes and results from previous visits were reviewed. Patient was last seen in the emergency department on 03/09/18 presents for acute onset rapid a-fib. Patient was admitted. Progress Notes: 04/16/18 07:08 EKG shows Sinus Tachycardia at 116 BPM with normal axis and intervals. 1 PVC. Interpreted by me. 04/16/18 08:[address] Espana seen and evaluated patient at beside. Case discussed with Dr. Espana who is aware and agrees with the plan. States to call back to discuss further plan when US and CT results come back. PROCEDURE: CT Abdomen and Pelvis with contrast Report Date : 04/16/2018 09:43:56 IMPRESSION: Findings suspicious for acute or subacute cholecystitis. No biliary tree dilatation appreciable exclusive of the gallbladder. No radiodense choledocholithiasis. Cholelithiasis identified within the gallbladder lumen. Nonobstructing intrarenal calculus lower pole left kidney. 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 1.2 cm nodule related to the left adrenal gland. Follow-up MRI without contrast to exclude potential malignancy though this is not favored. PROCEDURE: Complete US Dictator : Theron Schrader MD Concrete Mixing Truck Driver : District Plant Superintendent : Theron Schrader MD Approver2 : Report Date : 04/16/2018 09:14:29 IMPRESSION: 1. Extensive sludge is seen within the lumen of the gallbladder with gallbladder mildly distended. Cholelithiasis mural thickening and positive sonographic Berry sign likely indicate cholecystitis. Clinically correlate further. Normal CBD caliber. 2. Hepatic steatosis or other infiltrative hepatic process. 3. Small simple cyst midpole left kidney. 4. Partial imaging of the pancreas. 04/16/18 10:[address] Espana who is aware and agrees with the plan to admit patient. Accepts patient into his service. - Lab Interpretations I have reviewed the lab results: Yes - EKG Interpretation Interpreted by ED Physician: Yes Type: 12 lead EKG - Scribe Statement The provider has reviewed the documentation as recorded by the Hipolito Welch Provider Scribe Attestation: All medical record entries made by the Hipolito were at my direction and personally dictated by me. I have reviewed the chart and agree that the record accurately reflects my personal performance of the history, physical exam, medical decision making, and the department course for this patient. I have also personally directed, reviewed, and agree with the discharge instructions and disposition. Disposition/Present on Arrival - Present on Arrival Any Indicators Present on Arrival: Yes History of DVT/PE: No History of Uncontrolled Diabetes: No Urinary Catheter: No History of Decub. Ulcer: No History Surgical Site Infection Following: None - Disposition Have Diagnosis and Disposition been Completed?: No Diagnosis: Cholecystitis, Elevated LFTs Disposition: HOSPITALIZED Disposition Time: 09:50 Condition: FAIR
[2018-04-16 08:18] LABS: BASO # 0.01 K/mm3 (0.0-2.0); BASO % 0.1 % (0.0-3.0); GRAN # 11.43 (1.4-6.5); GRAN % 78.5 % (50.0-68.0); HEMOGLOBIN 12.1 g/dL (12.0-16.0); LYMPH # 1.6 (1.2-3.4); LYMPH % 10.8 % (22.0-35.0); MEAN CELL VOLUME 92.2 fl (80.0-105.0); MEAN CORPUSCULAR HEMOGLOBIN 30.6 pg (25.0-35.0); MEAN CORPUSCULAR HGB CONC 33.2 g/dl (31.0-37.0); MEAN PLATELET VOLUME 9.9 fl (7.0-11.0); MONO # 1.5 (0.1-0.6); MONO % 10.6 % (1.0-6.0); RBC 3.96 10^6/uL (3.5-6.1); RED CELL DISTRIBUTION WIDTH 14.4 % (11.5-14.5); WHITE BLOOD COUNT 14.6 10^3/uL (4.5-11.0)
[2018-04-16 08:27] LABS: ALB/GLOB RATIO 1.1 (1.1-1.8); INR 1.31; PROTHROMBIN TIME 15.1 SECONDS (9.4-12.5)
[2018-04-16 08:52] LABS: ALBUMIN 3.6 g/dL (3.0-4.8); AST/SGOT 42 U/L (14-36); BLOOD UREA NITROGEN 14 mg/dL (7-21); GFR NON-AFRICAN AMERICAN > 60
[2018-04-16 08:53] LABS: ALT/SGPT 224 U/L (7-56); LIPASE 34 U/L (23-300); TROPONIN I 0.04 ng/mL
[2018-04-16] MEDS ORDERED: Iohexol 350 MG/100 ML VIAL ONE (08:57)
--- NOTE | 2018-04-16 09:18 | US ---
Date of service: 04/16/2018 HISTORY: RUQ tenderness - ? h/o gallstones COMPARISON: None. TECHNIQUE: Sonographic evaluation of the abdomen. FINDINGS: LIVER: Measures 18.8 cm. Increased echogenicity of the liver parenchyma. No mass. No intrahepatic bile duct dilatation. GALLBLADDER: Extensive sludge is seen in the dependent portion the gallbladder with cholelithiasis intermixed. Mural thickening suggested a 6.5 mm. Pericholecystic fluid collection, however, there is positive sonographic Berry sign. COMMON BILE DUCT: Measures 3.5 mm. No stones. No dilatation. PANCREAS: The head and tail the pancreas are obscured by overlying bowel gas with remainder unremarkable. RIGHT KIDNEY: Measures 10.8cm. Normal echogenicity. No calculus, mass, or hydronephrosis. LEFT KIDNEY: Measures 11.6cm. Normal echogenicity. No calculus, mass, or hydronephrosis. Small simple cyst is identified at the midpole measure 1.7 cm. SPLEEN: Splenomegaly without focal mass. The spleen measures 13.2 cm. AORTA: No aneurysmal dilatation. IVC: Unremarkable. OTHER FINDINGS: None. IMPRESSION: 1. Extensive sludge is seen within the lumen of the gallbladder with gallbladder mildly distended. Cholelithiasis mural thickening and positive sonographic Berry sign likely indicate cholecystitis. Clinically correlate further. Normal CBD caliber. 2. Hepatic steatosis or other infiltrative hepatic process. 3. Small simple cyst midpole left kidney. 4. Partial imaging of the pancreas.
--- NOTE | 2018-04-16 09:47 | CT ---
Date of service: 04/16/2018 PROCEDURE: CT Abdomen and Pelvis with contrast HISTORY: upper abdominal pain COMPARISON: Abdomen ultrasound 04/16/2018. TECHNIQUE: Following the intravenous administration of iodinated contrast material, a CT examination of the abdomen and pelvis performed from the domes of the diaphragms to the symphysis pubis with reformatted datasets provided in axial, sagittal and coronal planes. Oral contrast was not administered as per referring physician request. Coronal and sagittal reformats were generated. contrast dose: Omnipaque 350, 100 cc Radiation dose: Total exam DLP = 1030.54 mGy-cm. This CT exam was performed using one or more of the following dose reduction techniques: Automated exposure control, adjustment of the mA and/or kV according to patient size, and/or use of iterative reconstruction technique. FINDINGS: LOWER THORAX: Cardiomegaly. Small hiatal hernia. Limited bilateral basilar dependent atelectasis. LIVER: Mild hepatomegaly. No hepatic mass or intrahepatic biliary dilatation. GALLBLADDER AND BILE DUCTS: Gallbladder is distended with mural thickening and pericholecystic reaction/fluid. Cholelithiasis is identified in the lumen. Pattern suggests acute cholecystitis. No radiodense choledocholithiasis. Pancreas grossly unremarkable appearing. Pancreas SPLEEN: Unremarkable. ADRENALS: Right renal gland appears normal. There is a 1.3 x 0.6 cm nodule late to the medial limb of the left adrenal gland suspicious for mass. This may represent a benign adrenal adenoma however confirmation by MRI (without contrast) with chemical shift imaging is advised. KIDNEYS AND URETERS: There is a 9 mm irregular intrarenal calculus which is nonobstructive at the lower pole left kidney the bilateral kidneys otherwise unremarkable. VASCULATURE: Nonaneurysmal abdominal aortic calcific atherosclerotic changes are identified. BOWEL: Stomach is collapsed. Evaluation of the gastrointestinal tract is limited due to the lack of oral contrast administration. No definite bowel obstruction appreciated. The appendix not identified potentially reflecting prior appendectomy. Clinically correlate. Limited retained fecal material scattered throughout various large-bowel segments. PERITONEUM: No free air or ascites although trace pericolic fluid and prominent reactive changes seen at the gallbladder fossa related to a likely cholecystitis. Please see gallbladder section above. LYMPH NODES: Unremarkable. No enlarged lymph nodes. BLADDER: Partially obscured by intense artifact from bilateral hip arthroplasty hardware. Moderate distention is appreciated. REPRODUCTIVE: Obscured by artifact. BONES: No fracture. Bilateral hip arthroplasty noted as discussed above. OTHER FINDINGS: None. IMPRESSION: Findings suspicious for acute or subacute cholecystitis. No biliary tree dilatation appreciable exclusive of the gallbladder. No radiodense choledocholithiasis. Cholelithiasis identified within the gallbladder lumen. Nonobstructing intrarenal calculus lower pole left kidney. 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 1.2 cm nodule related to the left adrenal gland. Follow-up MRI without contrast to exclude potential malignancy though this is not favored.
[2018-04-16 10:39] LABS: PH,URINE 6.5 (4.7-8.0); URINE BILIRUBIN NEGATIVE (NEGATIVE); URINE BLOOD TRACE-INTACT (NEGATIVE); URINE GLUCOSE (UA) NEGATIVE (NEGATIVE); URINE LEUKOCYTE ESTERASE NEGATIVE Leu/uL (NEGATIVE); URINE PROTEIN NEGATIVE mg/dL (<30 mg/dL); URINE UROBILINOGEN 0.2 E.U./dL (<1 E.U./dL)
[2018-04-16 10:48] LABS: URINE APPEARANCE CLEAR (CLEAR); URINE COLOR YELLOW (YELLOW)
[2018-04-16] MEDS ORDERED: metroNIDAZOLE IV 500 mg/100 ml 500 MG/100 ML BAG IVPB STA (10:51)
[2018-04-16 11:03] LABS: URINE BACTERIA FEW (NEG); URINE WBC 0 - 2 /hpf (0-6)
[2018-04-16] MEDS: cefTRIAXone 1 gm 1 GM/100 ML BAG IVPB SCH (11:50)
--- NOTE | 2018-04-16 12:19 | CP.PCM.CON ---
<Lawrence Nation - Last Filed: 04/16/18 14:26> History of Present Illness - History of Present Illness History of Present Illness: PGY-2 GI consult note for Dr Nowak Mrs Boudreaux is a 62 year old female with a PMHx of HTN, HLD, PVC, DM, Gastritis, Nephrolithiasis, AFib, of who presented with right upper quadrant abdominal pain that began this morning which she currently rates a 01/23. Patient states the pain woke her up from her sleep. Patient said she was recently admitted for at [facility] 03/05/18 for UTI and said they found a kidney stone and gallstone. Patient states she was suppose to have the stones removed, but could not due to her recent diagnosis of a-fib. Patient denies any fever, chills, chest pain, shortness of breath, nausea, vomiting, diarrhea, urinary symptoms. PMD: Dr. Espana Press Worker Helper: Dr. Cornejo PMHx: HTN, HLD, PVC, DM, Gastritis, Nephrolithiasis, AFib PSHx: bilateral hip surgery, elbow surgery, D&C, colonoscopy in 01/2018 which she stated was normal Allergies: sulfa - rash SocialHx: denies tobacco hx, social drinker FamHx: denies hx of colon cancer; Father: HTN. Mother: denies Review of Systems - Constitutional Constitutional: absent: Chills, Fever - EENT Eyes: absent: Change in Vision - Cardiovascular Cardiovascular: absent: Chest Pain - Respiratory Respiratory: absent: Cough, Dyspnea - Gastrointestinal Gastrointestinal: Abdominal Pain, Nausea. absent: Diarrhea, Melena, Vomiting - Genitourinary Genitourinary: absent: Dysuria - Integumentary Integumentary: absent: Bleeding Lesions Past Patient History - Past Social History Smoking Status: Never Smoked - CARDIAC Hx Cardiac Disorders: Yes Hx Hypertension: Yes - PULMONARY Hx Respiratory Disorders: No - NEUROLOGICAL Hx Neurological Disorder: No - HEENT Hx HEENT Problems: No - RENAL Other/Comment: history of urosepsis - ENDOCRINE/METABOLIC Hx Diabetes Mellitus Type 2: Yes - HEMATOLOGICAL/ONCOLOGICAL Hx Blood Disorders: No - INTEGUMENTARY Hx Dermatological Problems: No - MUSCULOSKELETAL/RHEUMATOLOGICAL Hx Arthritis: Yes - GASTROINTESTINAL Hx Gastrointestinal Disorders: Yes Other/Comment: gastritis - GENITOURINARY/GYNECOLOGICAL Hx Urinary Tract Infection: Yes - PSYCHIATRIC Hx Psychophysiologic Disorder: Yes Hx Anxiety: Yes Hx Depression: Yes Hx Substance Use: No - SURGICAL HISTORY Hx Musculoskeletal Surgery: Yes (bilat hip) Hx Orthopedic Surgery: Yes (elbow) Hx Tonsillectomy: Yes - ANESTHESIA Hx Anesthesia: Yes Hx Anesthesia Reactions: No Hx Malignant Hyperthermia: No Meds Allergies/Adverse Reactions: Allergies Allergy/AdvReac Type Severity Reaction Status Date / Time Sulfa (Sulfonamide Allergy ITCHING Verified 04/16/18 12:03 Antibiotics) - Medications Medications: Current Medications Ceftriaxone Sodium (Rocephin 1 Gram Ivpb) 1 gm in 100 mls @ 100 mls/hr IVPB DAILY JAK; Protocol Last Admin: 04/16/18 11:50 Dose: 100 mls/hr Physical Exam - Constitutional Appears: Well, No Acute Distress - Head Exam Head Exam: ATRAUMATIC, NORMAL INSPECTION - Eye Exam Eye Exam: EOMI, Normal appearance, PERRL. absent: Scleral icterus - ENT Exam ENT Exam: Mucous Membranes Moist Additional comments: left nostril small extruding nasal polyp - Neck Exam Neck exam: Positive for: Normal Inspection - Respiratory Exam Respiratory Exam: Clear to Auscultation Bilateral, NORMAL BREATHING PATTERN. absent: Rales, Rhonchi, Wheezes - Cardiovascular Exam Cardiovascular Exam: Tachycardia, REGULAR RHYTHM, +S1, +S2. absent: Systolic Murmur - GI/Abdominal Exam GI & Abdominal Exam: Guarding, Normal Bowel Sounds, Rebound, Soft, Tenderness. absent: Distended, Firm Additional comments: RUQ pain - Extremities Exam Extremities exam: Positive for: normal inspection - Neurological Exam Neurological exam: Alert, Oriented x3 - Psychiatric Exam Psychiatric exam: Anxious - Skin Skin Exam: Normal Color, Warm Results - Vital Signs Recent Vital Signs: Last Vital Signs Temp 98.5 F 04/16/18 11:02 Pulse 103 H 04/16/18 11:02 Resp 14 04/16/18 11:02 BP 133/76 04/16/18 11:02 Pulse Ox 96 04/16/18 11:02 - Labs Result Diagrams: 04/16/18 08:00 04/16/18 08:00 Labs: Laboratory Results - last 24 hr 04/16/18 04/16/18 04/16/18 08:00 08:00 08:00 WBC 14.6 H RBC 3.96 Hgb 12.1 Hct 36.5 MCV 92.2 MCH 30.6 MCHC 33.2 RDW 14.4 Plt Count 262 MPV 9.9 Gran % 78.5 H Lymph % (Auto) 10.8 L Branch % (Auto) 10.6 H Eos % (Auto) 0.0 L Baso % (Auto) 0.1 Gran # 11.43 H Lymph # (Auto) 1.6 Branch # (Auto) 1.5 H Eos # (Auto) 0.0 Baso # (Auto) 0.01 PT 15.1 H INR 1.31 APTT 26.0 Sodium 135 Potassium 3.9 Chloride 100 Carbon Dioxide 26 Anion Gap 13 BUN 14 Creatinine 0.6 L Est GFR ( Amer) > 60 Est GFR (Non-Af Amer) > 60 Random Glucose 228 H Calcium 9.0 Magnesium 1.4 L Total Bilirubin 1.4 H AST 42 H D ALT 224 H Alkaline Phosphatase 260 H D Lactate Dehydrogenase 358 Total Creatine Kinase 21 L Troponin I 0.04 D Total Protein 6.9 Albumin 3.6 Globulin 3.3 Albumin/Globulin Ratio 1.1 Lipase 34 Urine Color Urine Appearance Urine pH Ur Specific [place] Urine Protein Urine Glucose (UA) Urine Ketones Urine Blood Urine Nitrate Urine Bilirubin Urine Urobilinogen Ur Leukocyte Esterase Urine RBC Urine WBC Ur Epithelial Cells Urine Bacteria 04/16/18 10:15 WBC RBC Hgb Hct MCV MCH MCHC RDW Plt Count MPV Gran % Lymph % (Auto) Branch % (Auto) Eos % (Auto) Baso % (Auto) Gran # Lymph # (Auto) Branch # (Auto) Eos # (Auto) Baso # (Auto) PT INR APTT Sodium Potassium Chloride Carbon Dioxide Anion Gap BUN Creatinine Est GFR ( Amer) Est GFR (Non-Af Amer) Random Glucose Calcium Magnesium Total Bilirubin AST ALT Alkaline Phosphatase Lactate Dehydrogenase Total Creatine Kinase Troponin I Total Protein Albumin Globulin Albumin/Globulin Ratio Lipase Urine Color Yellow Urine Appearance Clear Urine pH 6.5 Ur Specific [place] <= 1.005 Urine Protein Negative Urine Glucose (UA) Negative Urine Ketones Negative Urine Blood Trace-intact H Urine Nitrate Negative Urine Bilirubin Negative Urine Urobilinogen 0.2 Ur Leukocyte Esterase Negative Urine RBC 2 - 5 Urine WBC 0 - 2 Ur Epithelial Cells 4 - 5 Urine Bacteria Few Assessment & Plan - Assessment and Plan (Free Text) Plan: Mrs Boudreaux is a 62 year old female with a PMHx of hypertension, HLD, diabetes, gastritis, kidney stones, AFib, of who presented with sudden right upper quadrant abdominal pain: Acute Uncomplicated Calculous Cholecystitis -leukocystitis w/ left shift; Received rocephin and flagyl in the ED as well as toradol and 1L NS -Abd ultrasound: * 1. extensive sludge seen in lumen of gallbladder with gallbladder mildly distended, cholelithiasis mural thickening and positive sonographic griffin sign likely indicate cholecystitis, normal CBD caliber * 2. hepatic steatosis or other infiltrative hepatic process * 3. small simple cyst midpole left kidney -CT abd/pelvis w/ iv contrast: * Findings suspicious for acute or subacute cholecystitis. No biliary tree dilatation appreciable exclusive of the gallbladder. No radiodense choledocholithiasis. Cholelithiasis identified within the gallbladder lumen. Nonobstructing intrarenal calculus lower pole left kidney. 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 1.2 cm nodule related to the left adrenal gland. Follow-up MRI without contrast to exclude potential malignancy though this is not favored. -CT does not show any extrabiliary disorders or complications of acute cholecystitis -f/u hepatitis panel -f/u mrcp to r/o cbd stones -hydration NS 125cc/hr -continue flagyl 500mg ivp q8h and rocephin 1g iv q24 -recommend surgical evaluation for cholecystectomy Elevated LFTs -likely 2/2 to cholecystitis -TBili and Alk Phos elevated however no evidence of CBD obstruction on CT imaging -CBD 3.5mm on abd ultrasound Seen and discussed with Dr Nowak <Kenzie Nowak V - Last Filed: 04/17/18 00:03> Meds - Medications Medications: Current Medications Carvedilol (Coreg) 25 mg PO BID [facility] Last Admin: 04/16/18 23:42 Dose: 25 mg Diltiazem HCl (Cardizem Cd) 180 mg PO DAILY [facility] Ceftriaxone Sodium (Rocephin 1 Gram Ivpb) 1 gm in 100 mls @ 100 mls/hr IVPB DAILY [facility]; Protocol Last Admin: 04/16/18 11:50 Dose: 100 mls/hr Metronidazole (Flagyl) 500 mg in 100 mls @ 100 mls/hr IVPB Q8 [facility]; Protocol Last Admin: 04/16/18 21:53 Dose: 100 mls/hr Sodium Chloride (Sodium Chloride 0.9%) 1,000 mls @ 125 mls/hr IV .Q8H JAK Last Admin: 04/16/18 16:38 Dose: 125 mls/hr Insulin Human Regular (Humulin R Low) 0 units SC ACHS JAK; Protocol Pantoprazole Sodium (Protonix Inj) 40 mg IVP DAILY [facility] Results - Vital Signs Recent Vital Signs: Last Vital Signs Temp 98.8 F 04/16/18 22:19 Pulse 116 H 04/16/18 23:42 Resp 18 04/16/18 22:19 BP 152/74 H 04/16/18 23:42 Pulse Ox 94 L 04/16/18 22:19 - Labs Result Diagrams: 04/16/18 08:00 04/16/18 08:00 Labs: Laboratory Results - last 24 hr 04/16/18 04/16/18 04/16/18 08:00 08:00 08:00 WBC 14.6 H RBC 3.96 Hgb 12.1 Hct 36.5 MCV 92.2 MCH 30.6 MCHC 33.2 RDW 14.4 Plt Count 262 MPV 9.9 Gran % 78.5 H Lymph % (Auto) 10.8 L Branch % (Auto) 10.6 H Eos % (Auto) 0.0 L Baso % (Auto) 0.1 Gran # 11.43 H Lymph # (Auto) 1.6 Branch # (Auto) 1.5 H Eos # (Auto) 0.0 Baso # (Auto) 0.01 PT 15.1 H INR 1.31 APTT 26.0 Sodium 135 Potassium 3.9 Chloride 100 Carbon Dioxide 26 Anion Gap 13 BUN 14 Creatinine 0.6 L Est GFR ( Amer) > 60 Est GFR (Non-Af Amer) > 60 POC Glucose (mg/dL) Random Glucose 228 H Calcium 9.0 Magnesium 1.4 L Total Bilirubin 1.4 H AST 42 H D ALT 224 H Alkaline Phosphatase 260 H D Lactate Dehydrogenase 358 Total Creatine Kinase 21 L Troponin I 0.04 D Total Protein 6.9 Albumin 3.6 Globulin 3.3 Albumin/Globulin Ratio 1.1 Lipase 34 Urine Color Urine Appearance Urine pH Ur Specific [place] Urine Protein Urine Glucose (UA) Urine Ketones Urine Blood Urine Nitrate Urine Bilirubin Urine Urobilinogen Ur Leukocyte Esterase Urine RBC Urine WBC Ur Epithelial Cells Urine Bacteria Hepatitis A IgM Ab Hep Bs Antigen Hep B Core IgM Ab Hepatitis C Antibody 04/16/18 04/16/18 04/16/18 10:15 11:00 16:32 WBC RBC Hgb Hct MCV MCH MCHC RDW Plt Count MPV Gran % Lymph % (Auto) Branch % (Auto) Eos % (Auto) Baso % (Auto) Gran # Lymph # (Auto) Branch # (Auto) Eos # (Auto) Baso # (Auto) PT INR APTT Sodium Potassium Chloride Carbon Dioxide Anion Gap BUN Creatinine Est GFR ( Amer) Est GFR (Non-Af Amer) POC Glucose (mg/dL) 172 H Random Glucose Calcium Magnesium Total Bilirubin AST ALT Alkaline Phosphatase Lactate Dehydrogenase Total Creatine Kinase Troponin I Total Protein Albumin Globulin Albumin/Globulin Ratio Lipase Urine Color Yellow Urine Appearance Clear Urine pH 6.5 Ur Specific [place] <= 1.005 Urine Protein Negative Urine Glucose (UA) Negative Urine Ketones Negative Urine Blood Trace-intact H Urine Nitrate Negative Urine Bilirubin Negative Urine Urobilinogen 0.2 Ur Leukocyte Esterase Negative Urine RBC 2 - 5 Urine WBC 0 - 2 Ur Epithelial Cells 4 - 5 Urine Bacteria Few Hepatitis A IgM Ab Negative Hep Bs Antigen Negative Hep B Core IgM Ab Negative Hepatitis C Antibody Negative 04/16/18 21:23 WBC RBC Hgb Hct MCV MCH MCHC RDW Plt Count MPV Gran % Lymph % (Auto) Branch % (Auto) Eos % (Auto) Baso % (Auto) Gran # Lymph # (Auto) Branch # (Auto) Eos # (Auto) Baso # (Auto) PT INR APTT Sodium Potassium Chloride Carbon Dioxide Anion Gap BUN Creatinine Est GFR ( Amer) Est GFR (Non-Af Amer) POC Glucose (mg/dL) 130 H Random Glucose Calcium Magnesium Total Bilirubin AST ALT Alkaline Phosphatase Lactate Dehydrogenase Total Creatine Kinase Troponin I Total Protein Albumin Globulin Albumin/Globulin Ratio Lipase Urine Color Urine Appearance Urine pH Ur Specific [place] Urine Protein Urine Glucose (UA) Urine Ketones Urine Blood Urine Nitrate Urine Bilirubin Urine Urobilinogen Ur Leukocyte Esterase Urine RBC Urine WBC Ur Epithelial Cells Urine Bacteria Hepatitis A IgM Ab Hep Bs Antigen Hep B Core IgM Ab Hepatitis C Antibody Attending/Attestation - Attestation I have personally seen and examined this patient.: Yes I have fully participated in the care of the patient.: Yes I have reviewed all pertinent clinical information: Yes
[2018-04-16 14:40] VITALS: BMI 26.6
[2018-04-16] MEDS ORDERED: Influenza Vaccine 60 mcg/0.5 mL SYR (4YR UP) IM ONE (14:40)
[2018-04-16] MEDS ORDERED: Pneumococcal 23-Valent Vaccine IM ONE (14:40)
[2018-04-16] MEDS: Sodium Chloride 0.9% 1,000 ML IV SCH (16:38)
[2018-04-16 16:47] LABS: HEPATITIS B SURFACE AG Negative (NEGATIVE)
[2018-04-16 16:54] LABS: HEPATITIS A IGM NEGATIVE (NEGATIVE); HEPATITIS B CORE AB NEGATIVE (NEGATIVE)
[2018-04-16 17:04] LABS: HEPATITIS C ANTIBODY NEGATIVE (NEGATIVE)
--- NOTE | 2018-04-16 17:48 | HP ---
HISTORY OF PRESENT ILLNESS: A 62-year-old white female with a recent history of atrial fibrillation, taking Eliquis. Patient also takes Effexor for depression, diltiazem for control of her heart rate, losartan for blood pressure control, carvedilol because of CAD. She also takes Janumet because of non-dependent diabetes mellitus. Patient was recently discharged from the hospital after an episode of atrial fibrillation which was controlled with medication. Patient was seen in the office approximately 1 day prior to admission to the hospital. She developed overnight less than 1 day episode of right upper quadrant pain associated with some nausea and some diaphoresis. Patient came to emergency room and was found to have gallbladder sludge with acute cholecystitis on CT and ultrasound of the abdomen. Patient was admitted to the hospital. Patient denies any fever. She does complain of chills. She does complain of diaphoresis. She does complain of some nausea and some abdominal pain. Also denies diarrhea. Patient has no complaints of chest pain, shortness of breath, palpitations, diaphoresis or dizziness. Patient has no complaints of cough, shortness of breath or sputum production. ALLERGIES: PATIENT HAS A SULFA ALLERGY. SOCIAL HISTORY: She is nonsmoker, nondrinker. There is no travel history. There is no pertinent family history. PHYSICAL EXAMINATION: GENERAL: Show a well-developed, slightly obese white female in mild distress. HEENT: Essentially within normal limits. CARDIOPULMONARY: Regular sinus rhythm with ectopy. CHEST: Clear to auscultation and percussion. ABDOMEN: Soft, bowel sounds were hypoactive. There is some tenderness on deep palpation of the right upper quadrant consistent with positive Berry sign. There is no organomegaly. EXTREMITIES: There is no swelling, cyanosis or clubbing of the lower extremities. NEUROLOGIC: Grossly intact. IMPRESSION: Acute cholecystitis without choledocholithiasis and there is also gallbladder sludge in a 62-year-old white female with a recent history of atrial fibrillation, coronary artery disease, hypertension and [id number] diabetes mellitus. PLAN: Admit, IV antibiotics, GI consult, possible surgical consultation. Evangelist Espan[place] MD [facility] # [id number]
--- NOTE | 2018-04-16 19:18 | CARD ---
APPROVED REPORT Date of service: 04/16/2018 EKG Measurement Heart [id number] <Conclusion> Sinus tachycardia with occasional premature ventricular complexes Nonspecific T wave abnormality Abnormal ECG
[2018-04-16] MEDS: metroNIDAZOLE IV 500 mg/100 ml 500 MG/100 ML BAG IVPB SCH (21:53)
[2018-04-16] MEDS ORDERED: guaiFENesin-DM 600-30 mg ER Tab PO STA (23:20)
--- NOTE | 2018-04-16 23:43 | CP.PCM.CON ---
History of Present Illness - History of Present Illness History of Present Illness: General Surgery Dr. Lan 62 y/o F w/ PMHx of HTN, HLD, DM2, Afib presented to the ED c/o RUQ abd pain. Pt reports pain began ~5am this morning. Pt has never before had this pain. Pt reports pain woke her from sleep. Pain localized to RUQ and constant. Pain not associated w/ change in diet, not worsened by PO intake. Pt reports recent admission [place] [facility] [place], nephrolithaisis, and cholelithiasis. Pt was Dx w/ Afib shortly after that visit and started on Eliquis. Pt reports associated anorexia and reflux. Pt denies F/C, N/V, D/C. Abd US performed in ED revealed cholelithiasis, sludge, GB wall thickening, (+)sonographic Berry's sign, normal CBD CT A/P revealed acute cholecystitis w/ large stone at neck of gallbladder. PMD: Dr. Espana Preparation Room Manager: Dr. Cornejo GI: Dr. Amezcua PMHx: AFib, HTN, HLD, DM2, GERD, Nephrolithiasis Meds: reviewed in chart ALL: sulfa - rash PSHx: bilateral hip surgery, elbow surgery s/p fracture, D&C, colonoscopy (01/2018) SHx: denies tobacco, drug use; social EtOH FHx: noncontributory Review of Systems - Review of Systems All systems: reviewed and no additional remarkable complaints except (see HPI) Past Patient History - Past Social History Smoking Status: Never Smoked - CARDIAC Hx Cardiac Disorders: Yes Hx Hypertension: Yes - PULMONARY Hx Respiratory Disorders: No - NEUROLOGICAL Hx Neurological Disorder: No - HEENT Hx HEENT Problems: No - RENAL Other/Comment: history of urosepsis - ENDOCRINE/METABOLIC Hx Diabetes Mellitus Type 2: Yes - HEMATOLOGICAL/ONCOLOGICAL Hx Blood Disorders: No - INTEGUMENTARY Hx Dermatological Problems: No - MUSCULOSKELETAL/RHEUMATOLOGICAL Hx Arthritis: Yes - GASTROINTESTINAL Hx Gastrointestinal Disorders: Yes Other/Comment: gastritis - GENITOURINARY/GYNECOLOGICAL Hx Urinary Tract Infection: Yes - PSYCHIATRIC Hx Psychophysiologic Disorder: Yes Hx Anxiety: Yes Hx Depression: Yes Hx Substance Use: No - SURGICAL HISTORY Hx Musculoskeletal Surgery: Yes (bilat hip) Hx Orthopedic Surgery: Yes (elbow) Hx Tonsillectomy: Yes - ANESTHESIA Hx Anesthesia: Yes Hx Anesthesia Reactions: No Hx Malignant Hyperthermia: No Meds Allergies/Adverse Reactions: Allergies Allergy/AdvReac Type Severity Reaction Status Date / Time Sulfa (Sulfonamide Allergy ITCHING Verified 04/16/18 12:03 Antibiotics) - Medications Medications: Current Medications Carvedilol (Coreg) 25 mg PO BID [facility] Diltiazem HCl (Cardizem Cd) 180 mg PO DAILY [facility] Ceftriaxone Sodium (Rocephin 1 Gram Ivpb) 1 gm in 100 mls @ 100 mls/hr IVPB DAILY [facility]; Protocol Last Admin: 04/16/18 11:50 Dose: 100 mls/hr Metronidazole (Flagyl) 500 mg in 100 mls @ 100 mls/hr IVPB Q8 [facility]; Protocol Last Admin: 04/16/18 21:53 Dose: 100 mls/hr Sodium Chloride (Sodium Chloride 0.9%) 1,000 mls @ 125 mls/hr IV .Q8H [facility] Last Admin: 04/16/18 16:38 Dose: 125 mls/hr Insulin Human Regular (Humulin R Low) 0 units SC ACHS [facility]; Protocol Pantoprazole Sodium (Protonix Inj) 40 mg IVP DAILY [facility] Physical Exam - Constitutional Appears: Non-toxic, No Acute Distress - Head Exam Head Exam: NORMAL INSPECTION - Eye Exam Eye Exam: Normal appearance - ENT Exam ENT Exam: Mucous Membranes Moist - Respiratory Exam Respiratory Exam: NORMAL BREATHING PATTERN. absent: Accessory Muscle Use, Respiratory Distress - Cardiovascular Exam Cardiovascular Exam: Tachycardia, Irregular Rhythm. absent: Bradycardia - GI/Abdominal Exam GI & Abdominal Exam: Distended (mild), Guarding (voluntary), Soft, Tenderness (RUQ). absent: Firm, Rebound Additional comments: (+)Berry's sign - Extremities Exam Extremities exam: Positive for: normal inspection - Neurological Exam Neurological exam: Alert, Oriented x3 - Psychiatric Exam Psychiatric exam: Normal Affect, Normal Mood - Skin Skin Exam: Dry, Intact, Normal Color, Warm Results - Vital Signs Recent Vital Signs: Last Vital Signs Temp 98.8 F 04/16/18 22:19 Pulse 117 H 04/16/18 22:19 Resp 18 04/16/18 22:19 BP 152/79 H 04/16/18 22:19 Pulse Ox 94 L 04/16/18 22:19 - Labs Result Diagrams: 04/16/18 08:00 04/16/18 08:00 Labs: Laboratory Results - last 24 hr 04/16/18 04/16/18 04/16/18 08:00 08:00 08:00 WBC 14.6 H RBC 3.96 Hgb 12.1 Hct 36.5 MCV 92.2 MCH 30.6 MCHC 33.2 RDW 14.4 Plt Count 262 MPV 9.9 Gran % 78.5 H Lymph % (Auto) 10.8 L Dixon % (Auto) 10.6 H Eos % (Auto) 0.0 L Baso % (Auto) 0.1 Gran # 11.43 H Lymph # (Auto) 1.6 Dixon # (Auto) 1.5 H Eos # (Auto) 0.0 Baso # (Auto) 0.01 PT 15.1 H INR 1.31 APTT 26.0 Sodium 135 Potassium 3.9 Chloride 100 Carbon Dioxide 26 Anion Gap 13 BUN 14 Creatinine 0.6 L Est GFR ( Amer) > 60 Est GFR (Non-Af Amer) > 60 POC Glucose (mg/dL) Random Glucose 228 H Calcium 9.0 Magnesium 1.4 L Total Bilirubin 1.4 H AST 42 H D ALT 224 H Alkaline Phosphatase 260 H D Lactate Dehydrogenase 358 Total Creatine Kinase 21 L Troponin I 0.04 D Total Protein 6.9 Albumin 3.6 Globulin 3.3 Albumin/Globulin Ratio 1.1 Lipase 34 Urine Color Urine Appearance Urine pH Ur Specific [place] Urine Protein Urine Glucose (UA) Urine Ketones Urine Blood Urine Nitrate Urine Bilirubin Urine Urobilinogen Ur Leukocyte Esterase Urine RBC Urine WBC Ur Epithelial Cells Urine Bacteria Hepatitis A IgM Ab Hep Bs Antigen Hep B Core IgM Ab Hepatitis C Antibody 04/16/18 04/16/18 04/16/18 10:15 11:00 16:32 WBC RBC Hgb Hct MCV MCH MCHC RDW Plt Count MPV Gran % Lymph % (Auto) Dixon % (Auto) Eos % (Auto) Baso % (Auto) Gran # Lymph # (Auto) Dixon # (Auto) Eos # (Auto) Baso # (Auto) PT INR APTT Sodium Potassium Chloride Carbon Dioxide Anion Gap BUN Creatinine Est GFR ( Amer) Est GFR (Non-Af Amer) POC Glucose (mg/dL) 172 H Random Glucose Calcium Magnesium Total Bilirubin AST ALT Alkaline Phosphatase Lactate Dehydrogenase Total Creatine Kinase Troponin I Total Protein Albumin Globulin Albumin/Globulin Ratio Lipase Urine Color Yellow Urine Appearance Clear Urine pH 6.5 Ur Specific [place] <= 1.005 Urine Protein Negative Urine Glucose (UA) Negative Urine Ketones Negative Urine Blood Trace-intact H Urine Nitrate Negative Urine Bilirubin Negative Urine Urobilinogen 0.2 Ur Leukocyte Esterase Negative Urine RBC 2 - 5 Urine WBC 0 - 2 Ur Epithelial Cells 4 - 5 Urine Bacteria Few Hepatitis A IgM Ab Negative Hep Bs Antigen Negative Hep B Core IgM Ab Negative Hepatitis C Antibody Negative 04/16/18 21:23 WBC RBC Hgb Hct MCV MCH MCHC RDW Plt Count MPV Gran % Lymph % (Auto) Dixon % (Auto) Eos % (Auto) Baso % (Auto) Gran # Lymph # (Auto) Dixon # (Auto) Eos # (Auto) Baso # (Auto) PT INR APTT Sodium Potassium Chloride Carbon Dioxide Anion Gap BUN Creatinine Est GFR ( Amer) Est GFR (Non-Af Amer) POC Glucose (mg/dL) 130 H Random Glucose Calcium Magnesium Total Bilirubin AST ALT Alkaline Phosphatase Lactate Dehydrogenase Total Creatine Kinase Troponin I Total Protein Albumin Globulin Albumin/Globulin Ratio Lipase Urine Color Urine Appearance Urine pH Ur Specific [place] Urine Protein Urine Glucose (UA) Urine Ketones Urine Blood Urine Nitrate Urine Bilirubin Urine Urobilinogen Ur Leukocyte Esterase Urine RBC Urine WBC Ur Epithelial Cells Urine Bacteria Hepatitis A IgM Ab Hep Bs Antigen Hep B Core IgM Ab Hepatitis C Antibody - Imaging and Cardiology CT scan - abdomen Status: Image reviewed by me, Report reviewed by me US - abdomen Status: Image reviewed by me, Report reviewed by me Assessment & Plan - Assessment and Plan (Free Text) Assessment: 62 y/o F w/ acute cholecystitis Plan: - hold all PO anticoagulation/anti-platelet --> last dose Eliquis 04/15 6pm - Heparin vs Lovenox bridge --> f/u Cards recs - cont cardiac meds --> f/u Cards recs - f/u AM labs - f/u MRCP and GI recs - plan for OR for Lap eddie (pt requesting 48hr after Eliquis dose as per Dr. Cornejo's recommendation). Pt discussed w/ Dr. Riky Graves DO PGY3
[2018-04-17] MEDS: Sodium Chloride 0.9% 1,000 ML IV SCH ×2 (04:30→11:53)
[2018-04-17] MEDS: metroNIDAZOLE IV 500 mg/100 ml 500 MG/100 ML BAG IVPB SCH ×3 (05:53→21:28)
[2018-04-17 07:43] LABS: HEMOGLOBIN 10.8 g/dL (12.0-16.0); MEAN CELL VOLUME 94.4 fl (80.0-105.0); MEAN CORPUSCULAR HEMOGLOBIN 30.2 pg (25.0-35.0); MEAN PLATELET VOLUME 9.8 fl (7.0-11.0); RBC 3.58 10^6/uL (3.5-6.1); RED CELL DISTRIBUTION WIDTH 14.7 % (11.5-14.5); WHITE BLOOD COUNT 12.6 10^3/uL (4.5-11.0)
[2018-04-17 07:48] LABS: INR 1.3
--- NOTE | 2018-04-17 07:57 | CP.PCM.PN ---
Subjective - Date & Time of Evaluation Date of Evaluation: 04/17/18 Time of Evaluation: 07:52 - Subjective Subjective: General Surgery Progress Note for Dr. Lan 62F, seen and evaluated at bedside this morning. No acute events overnight. No complaints this morning. Minimal pain in the right upper quadrant on palpation otherwise doing well. Currently NPO. Tolerating her medications. Minimal ambulation. Patient understands the treatment plan. Denies f/c, n/v/d, SOB, CP, or urinary symptoms. Objective - Vital Signs/Intake and Output Vital Signs (last 24 hours): Temp Pulse Resp BP Pulse Ox 98.8 F 116 H 18 152/74 H 94 L 04/16/18 22:19 04/16/18 23:42 04/16/18 22:19 04/16/18 23:42 04/16/18 22:19 Intake and Output: 04/17/18 04/17/18 06:59 18:59 Intake Total 0 Balance 0 - Medications Medications: Current Medications Carvedilol (Coreg) 25 mg PO BID [facility] Last Admin: 04/16/18 23:42 Dose: 25 mg Diltiazem HCl (Cardizem Cd) 180 mg PO DAILY [facility] Ceftriaxone Sodium (Rocephin 1 Gram Ivpb) 1 gm in 100 mls @ 100 mls/hr IVPB DAILY [facility]; Protocol Last Admin: 04/16/18 11:50 Dose: 100 mls/hr Metronidazole (Flagyl) 500 mg in 100 mls @ 100 mls/hr IVPB Q8 [facility]; Protocol Last Admin: 04/17/18 05:53 Dose: 100 mls/hr Sodium Chloride (Sodium Chloride 0.9%) 1,000 mls @ 125 mls/hr IV .Q8H [facility] Last Admin: 04/17/18 04:30 Dose: 125 mls/hr Insulin Human Regular (Humulin R Low) 0 units SC ACHS [facility]; Protocol Pantoprazole Sodium (Protonix Inj) 40 mg IVP DAILY [facility] - Labs Labs: 04/17/18 07:15 04/16/18 08:00 PT 15.0 SECONDS (9.4-12.5) H 04/17/18 07:15 INR 1.30 04/17/18 07:15 APTT 30.0 Seconds (25.1-36.5) 04/17/18 07:15 - Constitutional Appears: Well, Non-toxic, No Acute Distress - Head Exam Head Exam: ATRAUMATIC, NORMAL INSPECTION, NORMOCEPHALIC - Eye Exam Eye Exam: EOMI - ENT Exam ENT Exam: Mucous Membranes Moist - Cardiovascular Exam Cardiovascular Exam: REGULAR RHYTHM - GI/Abdominal Exam GI & Abdominal Exam: Distended, Soft, Tenderness, Normal Bowel Sounds - Neurological Exam Neurological Exam: Alert, Awake, Oriented x3 - Psychiatric Exam Psychiatric exam: Normal Affect, Normal Mood Assessment and Plan - Assessment and Plan (Free Text) Assessment: 62F w/ acute cholecystitis Plan: Liver enzymes wnl, consider cancelling MRCP F/u HIDA Continue IV Abx Continue pain control and antiemetics as needed Continue to hold eliquis NPO diet IVF OR this afternoon Further recommendations per Dr. Riky Rodas PGY1
[2018-04-17 08:04] LABS: ALBUMIN 3.2 g/dL (3.0-4.8); ALT/SGPT 134 U/L (7-56); AST/SGOT 28 U/L (14-36); BLOOD UREA NITROGEN 11 mg/dL (7-21); CALCIUM 8.6 mg/dL (8.4-10.5); GFR NON-AFRICAN AMERICAN > 60
[2018-04-17] MEDS: Insulin Reg-LOW-Coverage SC SCH ×2 (08:38→12:49)
--- NOTE | 2018-04-17 10:18 | CP.PCM.PN ---
<Lawrence Nation - Last Filed: 04/17/18 14:22> Subjective - Date & Time of Evaluation Date of Evaluation: 04/17/18 Time of Evaluation: 10:07 - Subjective Subjective: PGY-2 GI consult note for Dr Nowak No acute events overnight. No complaints this morning. Minimal pain in the right upper quadrant on palpation otherwise doing well. Currently NPO. Tolerating her medications. Minimal ambulation. Patient understands the treatment plan. Denies f/c, n/v/d, SOB, CP, or urinary symptoms. Objective - Vital Signs/Intake and Output Vital Signs (last 24 hours): Temp Pulse Resp BP Pulse Ox 97.8 F 99 H 20 132/67 97 04/17/18 08:12 04/17/18 08:12 04/17/18 08:12 04/17/18 08:12 04/17/18 08:12 Intake and Output: 04/17/18 04/17/18 06:59 18:59 Intake Total 0 Balance 0 - Medications Medications: Current Medications Carvedilol (Coreg) 25 mg PO BID [facility] Last Admin: 04/16/18 23:42 Dose: 25 mg Diltiazem HCl (Cardizem Cd) 180 mg PO DAILY [facility] Ceftriaxone Sodium (Rocephin 1 Gram Ivpb) 1 gm in 100 mls @ 100 mls/hr IVPB DAILY [facility]; Protocol Last Admin: 04/16/18 11:50 Dose: 100 mls/hr Metronidazole (Flagyl) 500 mg in 100 mls @ 100 mls/hr IVPB Q8 [facility]; Protocol Last Admin: 04/17/18 05:53 Dose: 100 mls/hr Sodium Chloride (Sodium Chloride 0.9%) 1,000 mls @ 125 mls/hr IV .Q8H [facility] Last Admin: 04/17/18 04:30 Dose: 125 mls/hr Insulin Human Regular (Humulin R Low) 0 units SC ACHS [facility]; Protocol Last Admin: 04/17/18 08:38 Dose: Not Given Pantoprazole Sodium (Protonix Inj) 40 mg IVP DAILY [facility] - Labs Labs: 04/17/18 07:15 04/17/18 07:15 PT 15.0 SECONDS (9.4-12.5) H 04/17/18 07:15 INR 1.30 04/17/18 07:15 APTT 30.0 Seconds (25.1-36.5) 04/17/18 07:15 - Additional Findings Additional findings: - Constitutional Appears: Well, No Acute Distress - Head Exam Head Exam: ATRAUMATIC, NORMAL INSPECTION - Eye Exam Eye Exam: EOMI, Normal appearance, PERRL. absent: Scleral icterus - ENT Exam ENT Exam: Mucous Membranes Moist Additional comments: left nostril small extruding nasal polyp - Neck Exam Neck exam: Positive for: Normal Inspection - Respiratory Exam Respiratory Exam: Clear to Auscultation Bilateral, NORMAL BREATHING PATTERN. absent: Rales, Rhonchi, Wheezes - Cardiovascular Exam Cardiovascular Exam: Tachycardia, REGULAR RHYTHM, +S1, +S2. absent: Systolic Murmur - GI/Abdominal Exam GI & Abdominal Exam: Guarding, Normal Bowel Sounds, Rebound, Soft, Tenderness. absent: Distended, Firm Additional comments: RUQ pain - Extremities Exam Extremities exam: Positive for: normal inspection - Neurological Exam Neurological exam: Alert, Oriented x3 - Psychiatric Exam Psychiatric exam: Anxious - Skin Skin Exam: Normal Color, Warm Assessment and Plan - Assessment and Plan (Free Text) Plan: Mrs Boudreaux is a 62 year old female with a PMHx of hypertension, HLD, diabetes, gastritis, kidney stones, AFib, of who presented with sudden right upper quadrant abdominal pain: Acute Uncomplicated Calculous Cholecystitis -leukocystitis w/ left shift; Received rocephin and flagyl in the ED as well as toradol and 1L NS -Abd ultrasound: * 1. extensive sludge seen in lumen of gallbladder with gallbladder mildly distended, cholelithiasis mural thickening and positive sonographic griffin sign likely indicate cholecystitis, normal CBD caliber * 2. hepatic steatosis or other infiltrative hepatic process * 3. small simple cyst midpole left kidney -CT abd/pelvis w/ iv contrast: * Findings suspicious for acute or subacute cholecystitis. No biliary tree dilatation appreciable exclusive of the gallbladder. No radiodense choledocholithiasis. Cholelithiasis identified within the gallbladder lumen. Nonobstructing intrarenal calculus lower pole left kidney. 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 1.2 cm nodule related to the left adrenal gland. Follow-up MRI without contrast to exclude potential malignancy though this is not favored. -CT does not show any extrabiliary disorders or complications of acute cholecystitis -hepatitis panel negative -mrcp cancelled by surgery -f/u biliary hida scan -hydration NS 125cc/hr -continue flagyl 500mg ivp q8h and rocephin 1g iv q24 -protonix 4mg ivp qd -general surgical planning for cholecystectomy after holding eliquis for 24hrs Elevated LFTs, Downtrending -likely 2/2 to cholecystitis -TBili and Alk Phos elevated however no evidence of CBD obstruction on CT imaging -CBD 3.5mm on abd ultrasound Seen and discussed with Dr Nowak <Kenzie Nowak V - Last Filed: 04/17/18 22:18> Objective - Vital Signs/Intake and Output Vital Signs (last 24 hours): Temp Pulse Resp BP Pulse Ox 98.7 F 99 H 18 148/64 95 04/17/18 14:00 04/17/18 21:28 04/17/18 14:00 04/17/18 21:28 04/17/18 14:00 - Medications Medications: Current Medications Carvedilol (Coreg) 25 mg PO BID [facility] Last Admin: 04/17/18 21:28 Dose: 25 mg Diltiazem HCl (Cardizem Cd) 180 mg PO DAILY [facility] Last Admin: 04/17/18 11:39 Dose: Not Given Ceftriaxone Sodium (Rocephin 1 Gram Ivpb) 1 gm in 100 mls @ 100 mls/hr IVPB DAILY [facility]; Protocol Last Admin: 04/17/18 11:52 Dose: 100 mls/hr Metronidazole (Flagyl) 500 mg in 100 mls @ 100 mls/hr IVPB Q8 [facility]; Protocol Last Admin: 04/17/18 21:28 Dose: 100 mls/hr Sodium Chloride (Sodium Chloride 0.9%) 1,000 mls @ 125 mls/hr IV .Q8H [facility] Last Admin: 04/17/18 11:53 Dose: 125 mls/hr Insulin Human Regular (Humulin R Low) 0 units SC ACHS [facility]; Protocol Last Admin: 04/17/18 12:49 Dose: Not Given Pantoprazole Sodium (Protonix Inj) 40 mg IVP DAILY [facility] Last Admin: 04/17/18 11:53 Dose: 40 mg - Labs Labs: 04/17/18 07:15 04/17/18 07:15 PT 15.0 SECONDS (9.4-12.5) H 04/17/18 07:15 INR 1.30 04/17/18 07:15 APTT 30.0 Seconds (25.1-36.5) 04/17/18 07:15 Attending/Attestation - Attestation I have personally seen and examined this patient.: Yes I have fully participated in the care of the patient.: Yes I have reviewed all pertinent clinical information, including history, physical exam and plan: Yes Notes (Text): This is an addendum to GI followup report dictated by the [facility]. The patient was seen and evaluated earlier. Medical records, lab studies, imagings were reviewed. Last 24 hours events reviewed. Agreed with the above treatment plan as outlined in [facility] 's notes with the addition of the following patient still complains of right upper quadrant pain, but less compared to previous day On examination has tenderness in the right upper quadrant area HIDA scan was reviewed small bowel activity is noticed promptly suggestive of patent CBD however it is not he had a reliable test to check test to evaluate the common bile duct LFT shows downward trend MRI was canceled by surgical team Would recommend [facility] 04/17/18 22:14
[2018-04-17] MEDS: diltiaZEM 180 mg/24 Hours CD Cap PO SCH (11:39)
[2018-04-17] MEDS: cefTRIAXone 1 gm 1 GM/100 ML BAG IVPB SCH (11:52)
--- NOTE | 2018-04-17 15:38 | NM ---
Date of service: 04/17/2018 PROCEDURE: Nuclear Medicine Hepatobiliary Scan HISTORY: r/o cystic duct obstruction COMPARISON: None available. TECHNIQUE: 5.7 mCi of technetium 99m Mebrofenin was administered intravenously. Planar images of the abdomen were obtained at 5 min intervals to 60 mins. Delayed images were also obtained. FINDINGS: LIVER: Timely and homogenous uptake. COMMON BILE DUCT: identified at 5 mins. GALLBLADDER: Not visualized even on delayed images SMALL BOWEL: Identified at 15 mins. IMPRESSION: Nonvisualization of the gallbladder consistent with cystic duct obstruction and acute cholecystitis
--- NOTE | 2018-04-17 17:21 | RAD ---
Date of service: 04/17/2018 HISTORY: pre op COMPARISON: Graph dated 03/09/2018. FINDINGS: LUNGS: No active pulmonary disease. PLEURA: No significant pleural effusion identified, no pneumothorax apparent. CARDIOVASCULAR: Aortic atherosclerotic calcifications. Cardiomediastinal silhouette stably enlarged. OSSEOUS STRUCTURES: Unchanged. VISUALIZED UPPER ABDOMEN: Normal. OTHER FINDINGS: None. IMPRESSION: No active disease.
--- NOTE | 2018-04-17 18:29 | CON ---
DATE: 04/17/2018 INDICATIONS: Preop gallbladder surgery, paroxysmal atrial fibrillation on Eliquis. HISTORY OF PRESENT ILLNESS: This is a 62-year-old woman, known to our practice with recent abdominal pain. She was admitted yesterday with what appears to be acute cholecystitis. She presented with right-sided abdominal pain, which was severe. There was no chest pain or shortness of breath. There was no nausea, vomiting, diarrhea, constipation, or melena. There was no orthopnea, PND, syncope, presyncope, lightheadedness, dizziness, or vertigo. There was no fever, chills, cough, sputum production, or hemoptysis. Subsequently, her symptoms have improved. Workup including ultrasound and CT reveals evidence of gallbladder sludge and presumed cholecystitis. GI workup is underway. An MRCP is planned, surgery is planned, the timing to be determined because of her recent use of Eliquis, last dose being 06:00 p.m. on April 15. PAST MEDICAL HISTORY: Notable for paroxysmal atrial fibrillation, recently diagnosed in February of this year. An echocardiogram revealed moderately severe mitral regurgitation and mild tricuspid regurgitation with normal left ventricular function. A recent stress test was unremarkable, although I do not have the full report. She has been treated for urinary tract infection. There is a history of hypertension, diabetes, hyperlipidemia, GERD, depression, bilateral total hip replacements, D and C, and left elbow surgery. Her workup so far has shown evidence of fatty liver, renal stone, and an adrenal nodule. There is no history of rheumatic fever, myocardial infarction, congestive heart failure, angina, stroke, TIA, or gout. MEDICATIONS: Medications at the time of admission included aspirin, diltiazem, Coreg, losartan, Effexor, Eliquis, Janumet, Livalo, multivitamins, Pepcid, and Xanax. ALLERGIES: SHE NOTES AN ALLERGY TO SULFA MEDICATIONS. SOCIAL HISTORY: She lives at home. She is ambulatory. She does not smoke cigarette. She does not drink alcohol. FAMILY HISTORY: Noncontributory. REVIEW OF SYSTEMS: A 10-point review of systems is otherwise unremarkable, except as noted above. PHYSICAL EXAMINATION: GENERAL: She is a well-developed woman sitting on her bed in 5R, in no acute distress. VITAL SIGNS: Notable for pulse of 99, afebrile. Blood pressure 132/67, respirations 20, O2 sat 97% on room air. HEENT: Exam reveals no neck vein distention, thyromegaly, or carotid bruits. Mucous membranes moist. Conjunctivae pink. NECK: Supple. LUNGS: Lung navarro clear throughout. HEART: Revealed normal first and second heart sounds. There is a systolic murmur along the left sternal border and at the cardiac apex. PMI is not palpable. ABDOMEN: Soft. There is some tenderness in the right upper quadrant. No rebound, guarding, or CVA tenderness. No palpable abdominal aortic aneurysm. EXTREMITIES: Extremity exam revealed no cyanosis, clubbing, or edema. NEUROLOGICAL: Awake, alert, and oriented. PSYCHIATRIC: Normal, except appears depressed. LABORATORY DATA AND IMAGING: EKG demonstrates regular sinus rhythm to sinus tachycardia with a PVC, nonspecific ST wave changes. No acute change from a prior EKG, except atrial fibrillation is no longer present. Abdominal ultrasound reveals extensive sludge seen in the lumen of the gallbladder with gallbladder mildly distended. There is mural thickening and a positive sonographic Berry sign consistent with cholecystitis. There is also hepatic steatosis or other infiltrative hepatic process, a small simple kidney cyst. See full report. Abdominopelvic CT report is noted. Findings suspicious of acute or subacute cholecystitis. See full report. White count 12,600, hemoglobin 10.8, hematocrit 33.8, and platelet count normal. PT 15.1, repeat 15.0, INR 1.3, PTT 26, repeat 30. Electrolytes, BUN and creatinine unremarkable. Blood sugars noted, today's 153. Calcium normal. Magnesium 1.7. Elevated liver function tests noted, improved on today's sample. CK 21, troponin 0.04. Lipase 34. Urinalysis is noted. Serologies are negative for hepatitis. ASSESSMENT AND PLAN: Sanjana Boudreaux is a 62-year-old woman with recent paroxysmal atrial fibrillation, a history of moderately severe mitral regurgitation on echocardiogram, who presents with abdominal pain and cholecystitis, also with a history of renal stone and recent urinary tract infection. She has a history of hypertension, diabetes, and hyperlipidemia. Apparently, a nuclear stress test fairly recently was unremarkable. She was on Eliquis until 6:00 p.m. on April 15. If surgery is elective and can be postponed, I would wait until a full 48 hours have elapsed at a minimum. She should be considered a mildly increased cardiac risk. I would continue diltiazem and Coreg; Vasquez is on hold. She is getting IV fluid. She is n.p.o. for possible surgery later today (after 6 PM) or tomorrow (preferred). A biliary scan is planned. GI consultation is planned. Surgical consultation is underway. We will monitor I's and O's. We will check stool for occult blood. We will monitor labs. I will follow along with you and make additional recommendations based on her clinical course. Ivan Colon MD MTDD
--- NOTE | 2018-04-17 20:43 | CP.PCM.PCO ---
Physician Communication Note - Physician Communication Note Physician Communication Note: For OR Sat. 04/18 maksim xie
--- NOTE | 2018-04-17 21:21 | PN ---
DATE: 04/17/2018 SUBJECTIVE: The patient is 62 years old, who came in with intermittent right upper quadrant pain. She went to [facility] Emergency Room twice, was told she has gastritis. She was also found to have AFib, on Eliquis. Continued to have right upper quadrant pain, so she came to the ER yesterday, was found to have non-visualized HIDA scan, and CT scan of the abdomen and pelvis also shows cholelithiasis. The patient is being prepped. She is NPO, going to OR for cholecystectomy. PHYSICAL EXAMINATION: GENERAL: Today, she is awake, alert, and oriented, able to communicate. VITAL SIGNS: She is afebrile. Pulse 99, respirations 20, blood pressure 132/67. LUNGS: Bilateral fair airflow. No rhonchi or crackles. HEART: S1 and S2 audible. ABDOMEN: Soft. Right upper quadrant palpable discomfort with guarding. NEUROLOGICAL: She is awake, alert, oriented, communicative. LABORATORY DATA: WBC 12.6, hemoglobin 10.8, hematocrit 33.8, platelets 263. Chemistries: Sodium 142, potassium 3.9, chloride 108, CO2 22, BUN 11, creatinine 0.6. Blood sugar 158. Her hepatitis profile is within normal limits. Blood cultures and urine cultures are negative. ASSESSMENT AND PLAN: 1. Acute cholecystitis. 2. History of gastritis. 3. History of atrial fibrillation, under control. 4. Gastritis. 5. Fxl-rtrmkvz-dcrusjshw diabetes. 6. Hyperlipidemia. PLAN: The patient is NPO. She is on IV fluids. She is on IV metronidazole. Blood sugar is being monitored. She is on Rocephin. Plan for laparoscopic cholecystectomy around 5 o'clock tonight. Silvana Salinas MD
[2018-04-18] MEDS: metroNIDAZOLE IV 500 mg/100 ml 500 MG/100 ML BAG IVPB SCH ×3 (05:49→22:05)
[2018-04-18 07:24] LABS: BASO # 0.02 K/mm3 (0.0-2.0); BASO % 0.2 % (0.0-3.0); EOS # 0.1 (0.0-0.7); EOS % 0.8 % (1.5-5.0); GRAN # 8.79 (1.4-6.5); GRAN % 76.9 % (50.0-68.0); HEMOGLOBIN 10.8 g/dL (12.0-16.0); LYMPH # 1.7 (1.2-3.4); LYMPH % 14.8 % (22.0-35.0); MEAN CELL VOLUME 93.9 fl (80.0-105.0); MEAN PLATELET VOLUME 9.9 fl (7.0-11.0); MONO # 0.8 (0.1-0.6); MONO % 7.3 % (1.0-6.0); RBC 3.6 10^6/uL (3.5-6.1); RED CELL DISTRIBUTION WIDTH 14.7 % (11.5-14.5); WHITE BLOOD COUNT 11.4 10^3/uL (4.5-11.0)
[2018-04-18] MEDS: Insulin Reg-LOW-Coverage SC SCH ×3 (07:30→21:15)
[2018-04-18 07:38] LABS: ALB/GLOB RATIO 0.9 (1.1-1.8); ALT/SGPT 100 U/L (7-56); AST/SGOT 30 U/L (14-36); BLOOD UREA NITROGEN 11 mg/dL (7-21); GFR NON-AFRICAN AMERICAN > 60
[2018-04-18] MEDS: diltiaZEM 180 mg/24 Hours CD Cap PO SCH (09:58)
[2018-04-18] MEDS: cefTRIAXone 1 gm 1 GM/100 ML BAG IVPB SCH (09:59)
--- NOTE | 2018-04-18 10:08 | CP.PCM.PN ---
<Ariadna Puentehan - Last Filed: 04/18/18 10:05> Subjective - Date & Time of Evaluation Date of Evaluation: 04/18/18 Time of Evaluation: 10:05 - Subjective Subjective: Patient is sitting in chair, watching TV, comfortable. No complaints. She will have surgery today. Objective - Vital Signs/Intake and Output Vital Signs (last 24 hours): Temp Pulse Resp BP Pulse Ox 98.6 F 98 H 18 142/67 98 04/18/18 07:00 04/18/18 09:58 04/18/18 07:00 04/18/18 09:58 04/18/18 07:00 - Medications Medications: Current Medications Carvedilol (Coreg) 25 mg PO BID [facility] Last Admin: 04/18/18 09:58 Dose: 25 mg Diltiazem HCl (Cardizem Cd) 180 mg PO DAILY [facility] Last Admin: 04/18/18 09:58 Dose: 180 mg Ceftriaxone Sodium (Rocephin 1 Gram Ivpb) 1 gm in 100 mls @ 100 mls/hr IVPB DAILY [facility]; Protocol Last Admin: 04/18/18 09:59 Dose: 100 mls/hr Metronidazole (Flagyl) 500 mg in 100 mls @ 100 mls/hr IVPB Q8 [facility]; Protocol Last Admin: 04/18/18 05:49 Dose: 100 mls/hr Sodium Chloride (Sodium Chloride 0.9%) 1,000 mls @ 125 mls/hr IV .Q8H [facility] Last Admin: 04/17/18 11:53 Dose: 125 mls/hr Insulin Human Regular (Humulin R Low) 0 units SC ACHS [facility]; Protocol Last Admin: 04/18/18 07:30 Dose: Not Given Pantoprazole Sodium (Protonix Inj) 40 mg IVP DAILY [facility] Last Admin: 04/18/18 09:58 Dose: 40 mg - Labs Labs: 04/18/18 06:30 04/18/18 06:30 PT 15.0 SECONDS (9.4-12.5) H 04/17/18 07:15 INR 1.30 04/17/18 07:15 APTT 30.0 Seconds (25.1-36.5) 04/17/18 07:15 - Constitutional Appears: Non-toxic, No Acute Distress - Head Exam Head Exam: NORMAL INSPECTION - Respiratory Exam Respiratory Exam: Clear to Ausculation Bilateral, NORMAL BREATHING PATTERN - Cardiovascular Exam Cardiovascular Exam: REGULAR RHYTHM, +S1, +S2 - GI/Abdominal Exam GI & Abdominal Exam: Soft, Tenderness, Normal Bowel Sounds - Neurological Exam Neurological Exam: Alert, Awake, Oriented x3 - Psychiatric Exam Psychiatric exam: Normal Affect, Normal Mood - Skin Skin Exam: Dry, Normal Color Assessment and Plan - Assessment and Plan (Free Text) Assessment: Mrs Boudreaux is a 62 year old female with a PMHx of hypertension, HLD, diabetes, gastritis, kidney stones, AFib, of who presented with sudden right upper quadrant abdominal pain: Acute Uncomplicated Calculous Cholecystitis -leukocystitis w/ left shift; Received rocephin and flagyl in the ED as well as toradol and 1L NS -Abd ultrasound: * 1. extensive sludge seen in lumen of gallbladder with gallbladder mildly distended, cholelithiasis mural thickening and positive sonographic griffin sign likely indicate cholecystitis, normal CBD caliber * 2. hepatic steatosis or other infiltrative hepatic process * 3. small simple cyst midpole left kidney -CT abd/pelvis w/ iv contrast: * Findings suspicious for acute or subacute cholecystitis. No biliary tree dilatation appreciable exclusive of the gallbladder. No radiodense choledocholithiasis. Cholelithiasis identified within the gallbladder lumen. Nonobstructing intrarenal calculus lower pole left kidney. 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 1.2 cm nodule related to the left adrenal gland. Follow-up MRI without contrast to exclude potential malignancy though this is not favored. -CT does not show any extrabiliary disorders or complications of acute cholecys titis -hepatitis panel negative -HIDA scan positive. Contrast seen in small bowel. Possibility of incomplete obstruction of CBD still remains. Recommend IOC. -hydration NS 125cc/hr -continue flagyl 500mg ivp q8h and rocephin 1g iv q24 -protonix 40mg ivp qd -general surgical planning for cholecystectomy after holding eliquis for 24hrs. - To OR today Elevated LFTs, Downtrending -likely 2/2 to cholecystitis -TBili and Alk Phos elevated however no evidence of CBD obstruction on CT imaging -CBD 3.5mm on abd ultrasound <Kenzie Nowak V - Last Filed: 04/18/18 19:59> Objective - Vital Signs/Intake and Output Vital Signs (last 24 hours): Temp Pulse Resp BP Pulse Ox 98.4 F 63 16 118/61 95 04/18/18 17:19 04/18/18 19:11 04/18/18 17:19 04/18/18 19:11 04/18/18 17:19 Intake and Output: 04/18/1818 18:59 05:59 Intake Total 100 Balance 100 - Medications Medications: Current Medications Carvedilol (Coreg) 25 mg PO BID [facility] Last Admin: 04/18/18 19:11 Dose: 25 mg Diltiazem HCl (Cardizem Cd) 180 mg PO DAILY [facility] Last Admin: 04/18/18 09:58 Dose: 180 mg Heparin Sodium (Porcine) (Heparin) 5,000 units SC Q8 [facility]; Protocol Hydromorphone HCl (Dilaudid) 1 mg IVP Q4H PRN PRN Reason: Pain, moderate (4-7) Hydromorphone HCl (Dilaudid) 0.5 mg IVP Q10M PRN PRN Reason: Pain, severe (8-10) Ceftriaxone Sodium (Rocephin 1 Gram Ivpb) 1 gm in 100 mls @ 100 mls/hr IVPB D AILY [facility]; Protocol Last Admin: 04/18/18 09:59 Dose: 100 mls/hr Metronidazole (Flagyl) 500 mg in 100 mls @ 100 mls/hr IVPB Q8 [facility]; Protocol Last Admin: 04/18/18 05:49 Dose: 100 mls/hr Lactated Ringer's (Lactated Ringer's) 1,000 mls @ 125 mls/hr IV .Q8H [facility] Insulin Human Regular (Humulin R Low) 0 units SC ACHS [facility]; Protocol Last Admin: 04/18/18 12:04 Dose: Not Given Ketorolac Tromethamine (Toradol) 30 mg IVP ONCE PRN PRN Reason: Pain, moderate (4-7) Metoclopramide HCl (Reglan) 10 mg IV ONCE PRN PRN Reason: Nausea/Vomiting Ondansetron HCl (Zofran Inj) 4 mg IVP Q6H PRN PRN Reason: Nausea/Vomiting Pantoprazole Sodium (Protonix Inj) 40 mg IVP DAILY [facility] Last Admin: 04/18/18 09:58 Dose: 40 mg - Labs Labs: 04/18/18 17:15 04/18/18 17:15 PT 14.1 SECONDS (9.4-12.5) H 04/18/18 17:15 INR 1.23 04/18/18 17:15 APTT 28.0 Seconds (25.1-36.5) 04/18/18 17:15 Attending/Attestation - Attestation I have personally seen and examined this patient.: Yes I have fully participated in the care of the patient.: Yes I have reviewed all pertinent clinical information, including history, physical exam and plan: Yes Notes (Text): This is an addendum to GI progress report dictated by the GI Fellow.The patient was seen and examined earlier. Medical records, lab studies, imagings were reviewed. Last 24 hours events reviewed. Agreed with the above treatment plan as outlined in GI Fellow 's notes with the addition of the following Discussed with Surgeon Dr. Edwards IOC could not be done Follow-up LFT Continue antibiotics 04/18/18 19:51
--- NOTE | 2018-04-18 10:24 | PN ---
DATE: 04/18/2018 SUBJECTIVE: The patient was seen sitting in bed on 5R. She is scheduled for laparoscopic cholecystectomy later this morning. She feels comfortable at the present time. She does have some mild right upper quadrant tenderness with deep inspiration. MEDICATIONS: Her current medications include diltiazem CD 180 mg daily, carvedilol 25 mg b.i.d., Flagyl, insulin coverage, Protonix, Rocephin, and IV fluids. PHYSICAL EXAMINATION: GENERAL: She is an anxious-appearing middle-aged woman. VITAL SIGNS: Her blood pressure 142/64, the pulse is 98, respirations are 16, she is afebrile. HEENT: No JVD. CHEST: Few scattered rhonchi heard. HEART: Soft systolic murmur is present at the left sternal border. Her rhythm appears regular. ABDOMEN: Soft with mild right upper quadrant tenderness. Bowel sounds are present. EXTREMITIES: Have no edema. DIAGNOSTIC DATA: Potassium 3.7, BUN and creatinine 11 and 0.6. White count 11.4, hemoglobin and hematocrit 10.8 and 33.8 with platelet count of 310,000. AST and ALT of 30 and 100 with alkaline phosphatase of 237. IMPRESSION: 1. Acute cholecystitis, scheduled for laparoscopic cholecystectomy later today. 2. History of paroxysmal atrial fibrillation, currently in sinus rhythm. 3. Jhehtlcy-ga-nlyfi mitral regurgitation with normal left ventricular function. 4. History of nephrolithiasis. RECOMMENDATIONS: Current cardiac medications will be continued for now. Eliquis has been placed on hold, but has been withheld for more than 48 hours, risk of bleeding should be acceptable at time of surgery. From a cardiac standpoint, she appears stable and I advised her to proceed with surgery as planned. Avoidance of excessive volume infusion given her mitral valve disease would be recommended. We will continue to follow and make further recommendations as appropriate. Puneet Cornejo MD
[2018-04-18] MEDS ORDERED: Bupivacaine 0.5% 50 ML IJ ONE (12:38)
[2018-04-18] MEDS ORDERED: Iohexol 240 (50 ml) ONE (12:38)
[2018-04-18] MEDS ORDERED: Midazolam 2 MG/2 ML VIAL ONE (12:44)
[2018-04-18] MEDS ORDERED: Propofol 10 mg/ml Inj (20 ML) ONE (12:44)
[2018-04-18] MEDS ORDERED: Succinylcholine 200 mg/10 ml Inj IV ONE (12:44)
[2018-04-18] MEDS ORDERED: Phenylephrine 10 mg/ml Inj ONE (13:02)
[2018-04-18] MEDS ORDERED: Rocuronium 10 mg/ml (5 ml) ONE (13:07)
[2018-04-18] MEDS ORDERED: metroNIDAZOLE IV 500 mg/100 ml 500 MG/100 ML BAG ONE (15:02)
[2018-04-18] MEDS ORDERED: Collagen Hemostat Powder ONE (15:11)
[2018-04-18] MEDS ORDERED: Neostigmine Methylsulfate 3mg/3ml Syringe IV ONE (15:48)
[2018-04-18] MEDS ORDERED: HYDROmorphone 0.5 mg/0.5 ml ISec IVP PRN ×2 (16:23→16:49)
[2018-04-18] MEDS ORDERED: Lactated Ringer's 1,000 ML IV SCH (16:30)
[2018-04-18] MEDS ORDERED: HYDROmorphone 0.5 mg/0.5 ml ISec ONE ×2 (16:33→16:52)
[2018-04-18] MEDS ORDERED: HYDROmorphone 0.5 mg/0.5 ml ISec IVP ONE ×2 (16:35→16:50)
--- NOTE | 2018-04-18 17:03 | PCM.SURG1 ---
Surgeon's Initial Post Op Note - Surgeon's Notes Surgeon: Dr. Lan Urban Gardening Specialist: Dr. Rodas PGY1 Type of Anesthesia: General Endo Pre-Operative Diagnosis: Acute cholecystitis Operative Findings: see operative dictation Post-Operative Diagnosis: acute cholecystitis Operation Performed: laparoscopic cholecystectomy converted to open with IOC, paraduodenal node resection Specimen/Specimens Removed: gallbladder, paraduodenal node Estimated Blood Loss: EBL {In ML}: 150 Blood Products Given: N/A Drains Used: Andrey Post-Op Condition: Good Date of Surgery/Procedure: 04/18/18 Time of Surgery/Procedure: 17:03
[2018-04-18 17:31] LABS: BASO # 0.02 K/mm3 (0.0-2.0); BASO % 0.2 % (0.0-3.0); EOS % 0.1 % (1.5-5.0); GRAN # 10.03 (1.4-6.5); GRAN % 78.5 % (50.0-68.0); HEMOGLOBIN 10.3 g/dL (12.0-16.0); LYMPH # 1.7 (1.2-3.4); LYMPH % 13.6 % (22.0-35.0); MEAN CELL VOLUME 95.6 fl (80.0-105.0); MEAN CORPUSCULAR HGB CONC 31.4 g/dl (31.0-37.0); MEAN PLATELET VOLUME 9.9 fl (7.0-11.0); MONO % 7.6 % (1.0-6.0); RBC 3.43 10^6/uL (3.5-6.1); RED CELL DISTRIBUTION WIDTH 14.9 % (11.5-14.5); WHITE BLOOD COUNT 12.8 10^3/uL (4.5-11.0)
[2018-04-18 17:40] LABS: INR 1.23; PROTHROMBIN TIME 14.1 SECONDS (9.4-12.5)
[2018-04-18 17:49] LABS: ALB/GLOB RATIO 0.9 (1.1-1.8); ALBUMIN 2.9 g/dL (3.0-4.8); ALT/SGPT 113 U/L (7-56); AST/SGOT 90 U/L (14-36); BLOOD UREA NITROGEN 15 mg/dL (7-21); CALCIUM 8.8 mg/dL (8.4-10.5); GFR NON-AFRICAN AMERICAN > 60
[2018-04-18] MEDS: HYDROmorphone 1 mg/ml ISec IVP PRN (21:13)
--- NOTE | 2018-04-18 21:41 | PN ---
DATE: 04/18/2018 SUBJECTIVE: The patient is a 62-year-old, seen and examined, anxious for surgery; otherwise doing well. Still has pain in the right upper quadrant area. PHYSICAL EXAMINATION: VITAL SIGNS: The patient is afebrile, pulse 60, respirations 16, and blood pressure 105/52. LUNGS: Bilateral fair airflow. No rhonchi or crackle. HEART: S1 and S2 audible. ABDOMEN: Soft with right upper quadrant palpable discomfort rebound and guarding. LABORATORY DATA: WBC 12.8, hemoglobin 10.3, hematocrit 32.8, and platelets of 331. Chemistry: Sodium 141, potassium 3.7, chloride 110, CO2 of 18, BUN 11, and creatinine 0.6. Blood sugar of 133. AST , ALT 100 and alk phos 237. Blood culture and urine cultures are negative. ASSESSMENT: 1. Acute cholecystitis. 2. History of atrial fibrillation. 3. Hypertension. PLAN: We will keep the patient n.p.o. We will give IV fluid and analgesics. Lasix as needed. She is on metronidazole. She is on DVT prophylaxis. She is on Protonix. She will continue her Rocephin and will follow up her electrolytes. Start her on incentive spirometry. Continue her on SCDs. Silvana Salinas MD
[2018-04-19] MEDS: Lactated Ringer's 1,000 ML IV SCH ×2 (00:05→14:28)
[2018-04-19] MEDS: HYDROmorphone 1 mg/ml ISec IVP PRN ×2 (01:43→13:01)
--- NOTE | 2018-04-19 05:37 | OP ---
PROCEDURE DATE: 04/18/2018 PREOPERATIVE DIAGNOSES: Acute cholecystitis and cholelithiasis. POSTOPERATIVE DIAGNOSES: Acute cholecystitis and cholelithiasis. PROCEDURES PERFORMED: 1. Laparoscopic cholecystectomy converted to open with intraoperative cholangiogram. 2. Biopsy of the periduodenal lymph node. SURGEON: Gordon Lan MD TILER: Dr. Marrufo. ANESTHESIOLOGIST: Dr. Adams. ANESTHESIA: General endotracheal anesthesia. ESTIMATED BLOOD LOSS: 100 mL. SPECIMEN: Gallbladder with stones and periduodenal lymph node. INDICATION: The patient is a 62-year-old female with a history of recurrent right upper quadrant abdominal pain with recent attack about a month ago, treated at another hospital with antibiotics and released home. The patient now comes back with severe abdominal pain, mostly in the right upper quadrant, associated with some nausea. The patient was started on antibiotics, and surgery was postponed due to the fact that the patient was on Eliquis for her arrhythmia. The patient was delayed for another 24 hours in order to be completely off the medication. DESCRIPTION OF PROCEDURE: The patient was brought to the operating room and placed on the operating table in supine position. The patient was connected to EKG, blood pressure and pulse oximetry monitors. The patient then underwent general endotracheal anesthesia and was prepped and draped in the usual sterile fashion. First, a standard time-out procedure took place and everybody in the room agreed as to the patient's identity, diagnosis and procedure to be performed. Using two towel clips, the anterior abdominal wall was elevated and a Veress needle was inserted through a small incision superior to the umbilicus. Once pneumoperitoneum was obtained, a 12-mm trocar was inserted, and careful evaluation of the abdominal cavity revealed the presence of dense adhesions around the area of the gallbladder. The remaining portion of the abdominal cavity appeared to be within normal limits. At this point, we placed the second 5-mm trocar in the subxiphoid position and carefully proceeded with dissection of the adhesions of the omentum. After a tedious dissection, we were to able to finally peal off the omentum and adjacent colon off the gallbladder wall. During that process, we noted that there was pus coming out from the gall bladder, which was suctioned out and cleaned and irrigated. I then the procedure with dissection down towards the infundibulum of the gall bladder. Very dense adhesions were noted along that way, and once the infundibulum was elevated after prolonged and tedious dissection, we were finally able to expose the area of the cystic duct. Due to severe scaring at adhesions, I was unable to clear up the cystic duct completely and therefore decided to proceed with the open procedure. At this point, we made a subcostal incision and entered the abdominal cavity. The trocars were removed. A careful dissection of the gallbladder going top to the bottom allowed us to expose the area of the cystic duct. The cystic duct and cystic artery were , and cystic artery was clipped with a metal clip. The cystic duct was now noted to be partially transected and was detached from the stump. The stump was then carefully retrieved and a flexible cholangiocatheter was inserted into it. Under direct visualization with fluoroscopy, cholangiogram was obtained, revealed prompt flow of dye into the entire biliary tree, also shown presence of fairly long cystic duct adjacent to it. The dye promptly entered the duodenum without any evidence of obstruction. Now, we proceeded with removing the cystic duct catheter and clipped the cystic duct with two metal clips. The gallbladder, which was previously removed, appeared to have some of the posterior wall still stuck to the liver due to the severe scarring, and portion of the wall that was not detached from the liver was carefully cauterized in order to obliterate the mucosa. The abdominal cavity was now copiously irrigated. All the irrigant fluid was suctioned out. The area above the liver and adjacent in the right pericolic gutter were also copiously irrigated and suctioned out. The Andrey drain was placed in the area of the servando hepatis and gallbladder fossa and along the pericolic gutter. The wounds were now closed using 0 Vicryl for the periumbilical trocar wound and #1 PDS for the fascia of the subcostal incision. The wound were closed in layers. The skin was closed using surgical yokasta. The patient had sterile dressing placed over the wounds. The patient was awakened and extubated and transferred to the recovery room for further observation. Gordon Lan MD [facility] # [id number]
[2018-04-19] MEDS: metroNIDAZOLE IV 500 mg/100 ml 500 MG/100 ML BAG IVPB SCH ×3 (05:46→22:06)
[2018-04-19 07:55] LABS: BASO # 0.02 K/mm3 (0.0-2.0); BASO % 0.2 % (0.0-3.0); GRAN % 77.1 % (50.0-68.0); HEMOGLOBIN 10.7 g/dL (12.0-16.0); LYMPH # 1.8 (1.2-3.4); LYMPH % 13.6 % (22.0-35.0); MEAN CELL VOLUME 94.9 fl (80.0-105.0); MEAN CORPUSCULAR HEMOGLOBIN 30.1 pg (25.0-35.0); MEAN CORPUSCULAR HGB CONC 31.8 g/dl (31.0-37.0); MEAN PLATELET VOLUME 9.8 fl (7.0-11.0); MONO # 1.2 (0.1-0.6); MONO % 9.1 % (1.0-6.0); RBC 3.55 10^6/uL (3.5-6.1)
[2018-04-19 08:15] LABS: ALB/GLOB RATIO 0.9 (1.1-1.8); ALT/SGPT 88 U/L (7-56); AST/SGOT 50 U/L (14-36); BLOOD UREA NITROGEN 13 mg/dL (7-21); CALCIUM 9.1 mg/dL (8.4-10.5); GFR NON-AFRICAN AMERICAN > 60
[2018-04-19] MEDS: Insulin Reg-LOW-Coverage SC SCH ×4 (08:36→22:10)
[2018-04-19] MEDS: diltiaZEM 180 mg/24 Hours CD Cap PO SCH (09:20)
[2018-04-19] MEDS: cefTRIAXone 1 gm 1 GM/100 ML BAG IVPB SCH (09:45)
--- NOTE | 2018-04-19 10:07 | CP.PCM.PN ---
Subjective - Date & Time of Evaluation Date of Evaluation: 04/19/18 Time of Evaluation: 10:02 - Subjective Subjective: General Surgery Progress Note for Dr. Lan 62F, seen and evaluated at bedside this morning. Patient complains of mild pain near surgical site well controlled with medication. Tolerated liquids this morning. Ambulating and voiding without difficulty. Denies f/c, n/v/d, SOB, CP, or urinary symptoms. Objective - Vital Signs/Intake and Output Vital Signs (last 24 hours): Temp Pulse Resp BP Pulse Ox 98.2 F 93 H 20 147/66 96 04/19/18 09:01 04/19/18 09:21 04/19/18 09:01 04/19/18 09:21 04/19/18 09:01 Intake and Output: 04/19/18 04/19/18 06:59 18:59 Intake Total 1100 Output Total 550 Balance 550 - Medications Medications: Current Medications Carvedilol (Coreg) 25 mg PO BID [facility] Last Admin: 04/19/18 09:21 Dose: 25 mg Diltiazem HCl (Cardizem Cd) 180 mg PO DAILY [facility] Last Admin: 04/19/18 09:20 Dose: 180 mg Heparin Sodium (Porcine) (Heparin) 5,000 units SC Q8 [facility]; Protocol Last Admin: 04/19/18 08:13 Dose: 5,000 units Hydromorphone HCl (Dilaudid) 1 mg IVP Q4H PRN PRN Reason: Pain, moderate (4-7) Last Admin: 04/19/18 01:43 EST Dose: 1 mg Hydromorphone HCl (Dilaudid) 0.5 mg IVP Q10M PRN PRN Reason: Pain, severe (8-10) Ceftriaxone Sodium (Rocephin 1 Gram Ivpb) 1 gm in 100 mls @ 100 mls/hr IVPB DAILY [facility]; Protocol Last Admin: 04/19/18 09:45 Dose: 100 mls/hr Metronidazole (Flagyl) 500 mg in 100 mls @ 100 mls/hr IVPB Q8 [facility]; Protocol Last Admin: 04/19/18 05:46 Dose: 100 mls/hr Lactated Ringer's (Lactated Ringer's) 1,000 mls @ 125 mls/hr IV .Q8H [facility] Last Admin: 04/19/18 00:05 Dose: 125 mls/hr Insulin Human Regular (Humulin R Low) 0 units SC ACHS [facility]; Protocol Last Admin: 04/19/18 08:36 Dose: Not Given Ketorolac Tromethamine (Toradol) 30 mg IVP ONCE PRN PRN Reason: Pain, moderate (4-7) Metoclopramide HCl (Reglan) 10 mg IV ONCE PRN PRN Reason: Nausea/Vomiting Ondansetron HCl (Zofran Inj) 4 mg IVP Q6H PRN PRN Reason: Nausea/Vomiting Pantoprazole Sodium (Protonix Inj) 40 mg IVP DAILY [facility] Last Admin: 04/19/18 09:21 Dose: 40 mg - Labs Labs: 04/19/18 07:00 04/19/18 07:00 PT 14.1 SECONDS (9.4-12.5) H 04/18/18 17:15 INR 1.23 04/18/18 17:15 APTT 28.0 Seconds (25.1-36.5) 04/18/18 17:15 - Constitutional Appears: Well, No Acute Distress - Head Exam Head Exam: ATRAUMATIC, NORMAL INSPECTION, NORMOCEPHALIC - Eye Exam Eye Exam: EOMI - ENT Exam ENT Exam: Mucous Membranes Moist - Respiratory Exam Respiratory Exam: Clear to Ausculation Bilateral, NORMAL BREATHING PATTERN - Cardiovascular Exam Cardiovascular Exam: REGULAR RHYTHM, +S1, +S2. absent: Murmur - GI/Abdominal Exam GI & Abdominal Exam: Soft, Tenderness, Normal Bowel Sounds - Neurological Exam Neurological Exam: Alert, Awake - Psychiatric Exam Psychiatric exam: Normal Affect, Normal Mood - Skin Skin Exam: Dry, Intact, Normal Color, Warm Additional comments: incision site clean, dry, intact Assessment and Plan - Assessment and Plan (Free Text) Assessment: 62F s/p laparoscopic converted to open cholecystectomy with IOC Plan: Continue IV Abx Continue IVF Continue pain control and antiemetics AE hose Full liquid diet for dinner as tolerated No anticoagulation F/u AM labs Encourage ambulation, OOB and IS use DVT/GI PPX Further medical management per primary team Further recommendations per Dr. Riky Rodas PGY1
--- NOTE | 2018-04-19 10:43 | CP.PCM.PN ---
<Randy Puente - Last Filed: 04/19/18 13:07> Subjective - Date & Time of Evaluation Date of Evaluation: 04/19/18 Time of Evaluation: 10:39 - Subjective Subjective: Patient had surgery yesterday. Converted to Open procedure, IOC unable to be done. Today she is tolerating CLD. Denies BMs or passing flatus since surgery. Denies severe abdominal pain. Objective - Vital Signs/Intake and Output Vital Signs (last 24 hours): Temp Pulse Resp BP Pulse Ox 98.2 F 93 H 20 147/66 96 04/19/18 09:01 04/19/18 09:21 04/19/18 09:01 04/19/18 09:21 04/19/18 09:01 Intake and Output: 04/19/18 04/19/18 06:59 18:59 Intake Total 1100 Output Total 550 Balance 550 - Medications Medications: Current Medications Carvedilol (Coreg) 25 mg PO BID [facility] Last Admin: 04/19/18 09:21 Dose: 25 mg Diltiazem HCl (Cardizem Cd) 180 mg PO DAILY [facility] Last Admin: 04/19/18 09:20 Dose: 180 mg Heparin Sodium (Porcine) (Heparin) 5,000 units SC Q8 [facility]; Protocol Last Admin: 04/19/18 08:13 Dose: 5,000 units Hydromorphone HCl (Dilaudid) 1 mg IVP Q4H PRN PRN Reason: Pain, moderate (4-7) Last Admin: 04/19/18 01:43 EST Dose: 1 mg Hydromorphone HCl (Dilaudid) 0.5 mg IVP Q10M PRN PRN Reason: Pain, severe (8-10) Ceftriaxone Sodium (Rocephin 1 Gram Ivpb) 1 gm in 100 mls @ 100 mls/hr IVPB DAILY [facility]; Protocol Last Admin: 04/19/18 09:45 Dose: 100 mls/hr Metronidazole (Flagyl) 500 mg in 100 mls @ 100 mls/hr IVPB Q8 [facility]; Protocol Last Admin: 04/19/18 05:46 Dose: 100 mls/hr Lactated Ringer's (Lactated Ringer's) 1,000 mls @ 125 mls/hr IV .Q8H [facility] Last Admin: 04/19/18 00:05 Dose: 125 mls/hr Insulin Human Regular (Humulin R Low) 0 units SC ACHS [facility]; Protocol Last Admin: 04/19/18 08:36 Dose: Not Given Ketorolac Tromethamine (Toradol) 30 mg IVP ONCE PRN PRN Reason: Pain, moderate (4-7) Metoclopramide HCl (Reglan) 10 mg IV ONCE PRN PRN Reason: Nausea/Vomiting Ondansetron HCl (Zofran Inj) 4 mg IVP Q6H PRN PRN Reason: Nausea/Vomiting Pantoprazole Sodium (Protonix Inj) 40 mg IVP DAILY [facility] Last Admin: 04/19/18 09:21 Dose: 40 mg - Labs Labs: 04/19/18 07:00 04/19/18 07:00 PT 14.1 SECONDS (9.4-12.5) H 04/18/18 17:15 INR 1.23 04/18/18 17:15 APTT 28.0 Seconds (25.1-36.5) 04/18/18 17:15 - Constitutional Appears: Non-toxic, No Acute Distress - Head Exam Head Exam: NORMAL INSPECTION - Eye Exam Eye Exam: Normal appearance - Respiratory Exam Respiratory Exam: Clear to Ausculation Bilateral, NORMAL BREATHING PATTERN - Cardiovascular Exam Cardiovascular Exam: REGULAR RHYTHM, +S1, +S2 - GI/Abdominal Exam GI & Abdominal Exam: Soft, Tenderness, Hypoactive Bowel Sounds - Neurological Exam Neurological Exam: Alert, Awake, Oriented x3 - Psychiatric Exam Psychiatric exam: Normal Affect, Normal Mood - Skin Skin Exam: Dry, Normal Color Assessment and Plan - Assessment and Plan (Free Text) Assessment: Mrs Boudreaux is a 62 year old female with a PMHx of hypertension, HLD, diabetes, gastritis, kidney stones, AFib, of who presented with sudden right upper quadrant abdominal pain: Acute Uncomplicated Calculous Cholecystitis -S/P Open cholecystectomy (Significant scarring of GB making extraction difficult, unable to perform IOC) -Abd ultrasound: * 1. extensive sludge seen in lumen of gallbladder with gallbladder mildly distended, cholelithiasis mural thickening and positive sonographic griffin sign likely indicate cholecystitis, normal CBD caliber * 2. hepatic steatosis or other infiltrative hepatic process * 3. small simple cyst midpole left kidney -CT abd/pelvis w/ iv contrast: * Findings suspicious for acute or subacute cholecystitis. No biliary tree dilatation appreciable exclusive of the gallbladder. No radiodense choledocholithiasis. Cholelithiasis identified within the gallbladder lumen. Nonobstructing intrarenal calculus lower pole left kidney. 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 1.2 cm nodule related to the left adrenal gland. Follow-up MRI without contrast to exclude potential malignancy though this is not favored. -CT does not show any extrabiliary disorders or complications of acute cholecystitis -hepatitis panel negative -HIDA scan positive. Contrast seen in small bowel. Possibility of incomplete obstruction of CBD still remains. -protonix 40mg ivp qd Elevated LFTs, Downtrending -likely 2/2 to cholecystitis -TBili and Alk Phos elevated however no evidence of CBD obstruction on CT imaging -CBD 3.5mm on abd ultrasound <Kenzie Nowak V - Last Filed: 04/19/18 19:24> Objective - Vital Signs/Intake and Output Vital Signs (last 24 hours): Temp Pulse Resp BP Pulse Ox 98.6 F 89 18 122/89 93 L 04/19/18 14:00 04/19/18 17:15 04/19/18 14:00 04/19/18 17:15 04/19/18 14:00 Intake and Output: 04/19/18 04/20/18 18:59 06:59 Intake Total 1100 Output Total 550 Balance 550 - Medications Medications: Current Medications Alprazolam (Xanax) 1 mg PO HS [facility]; Protocol Carvedilol (Coreg) 25 mg PO BID [facility] Last Admin: 04/19/18 17:15 Dose: 25 mg Diltiazem HCl (Cardizem Cd) 180 mg PO DAILY [facility] Last Admin: 04/19/18 09:20 Dose: 180 mg Heparin Sodium (Porcine) (Heparin) 5,000 units SC Q8 [facility]; Protocol Last Admin: 04/19/18 17:15 Dose: 5,000 units Hydromorphone HCl (Dilaudid) 1 mg IVP Q4H PRN PRN Reason: Pain, moderate (4-7) Last Admin: 04/19/18 13:01 Dose: 1 mg Hydromorphone HCl (Dilaudid) 0.5 mg IVP Q10M PRN PRN Reason: Pain, severe (8-10) Ceftriaxone Sodium (Rocephin 1 Gram Ivpb) 1 gm in 100 mls @ 100 mls/hr IVPB DAILY [facility]; Protocol Last Admin: 04/19/18 09:45 Dose: 100 mls/hr Metronidazole (Flagyl) 500 mg in 100 mls @ 100 mls/hr IVPB Q8 [facility]; Protocol Last Admin: 04/19/18 14:27 Dose: 100 mls/hr Insulin Human Regular (Humulin R Low) 0 units SC ACHS [facility]; Protocol Last Admin: 04/19/18 17:05 Dose: 2 units Ketorolac Tromethamine (Toradol) 30 mg IVP ONCE PRN PRN Reason: Pain, moderate (4-7) Metoclopramide HCl (Reglan) 10 mg IV ONCE PRN PRN Reason: Nausea/Vomiting Ondansetron HCl (Zofran Inj) 4 mg IVP Q6H PRN PRN Reason: Nausea/Vomiting Pantoprazole Sodium (Protonix Inj) 40 mg IVP DAILY [facility] Last Admin: 04/19/18 09:21 Dose: 40 mg Polyethylene Glycol (Miralax) 17 gm PO DAILY [facility] Last Admin: 04/19/18 14:35 Dose: 17 gm Venlafaxine HCl (Effexor Xr) 75 mg PO DAILY [facility] Last Admin: 04/19/18 17:15 Dose: 75 mg - Labs Labs: 04/19/18 07:00 04/19/18 07:00 PT 14.1 SECONDS (9.4-12.5) H 04/18/18 17:15 INR 1.23 04/18/18 17:15 APTT 28.0 Seconds (25.1-36.5) 04/18/18 17:15 Attending/Attestation - Attestation I have personally seen and examined this patient.: Yes I have fully participated in the care of the patient.: Yes I have reviewed all pertinent clinical information, including history, physical exam and plan: Yes Notes (Text): This is an addendum to GI progress report dictated by the GI Fellow.The patient was seen and examined earlier. Medical records, lab studies, imagings were reviewed. Last 24 hours events reviewed. Agreed with the above treatment plan as outlined in GI Fellow 's notes with the addition of the following sp cholecystectomy Followup LFT Continue antibiotics Post op as per surgery 04/19/18 19:24
[2018-04-19] MEDS: POLYETHYLENE GLYCOL 3350 17 GM/Dose PACKET PO SCH (14:35)
[2018-04-19] MEDS: Venlafaxine 75 mg ER Cap PO SCH (17:15)
--- NOTE | 2018-04-19 21:24 | PN ---
DATE: SUBJECTIVE: The patient is a 62 years old seen and examined, had planned laparoscopy and cholecystectomy last night, brought in because of she had open cholecystectomy and resection and biopsy was done. On examination, she is awake and alert, communicative, having liquid lunch. PHYSICAL EXAMINATION VITAL SIGNS: She is afebrile, pulse 92, respirations 20, and blood pressure 147/66. LUNGS: Bilateral fair airflow. No rhonchi or crackle. HEART: S1 and S2 audible. ABDOMEN: Soft but with palpable discomfort. NEUROLOGICAL: She is awake, alert, oriented, able to communicate. LABORATORY EXAMINATION: WBC 13, hemoglobin 10.7, hematocrit 33.7, and platelets 401,000. Chemistry: Sodium 143, potassium 4.1, chloride 113, CO2 of 16, BUN 13, and creatinine 0.6. Blood sugar of 277. ASSESSMENT AND PLAN: 1. Status post acute cholecystitis. 2. Status post open cholecystectomy. 3. Atrial fibrillation. 4. History of hypertension. 5. Depression. 6. Anxiety disorder. PLAN: The patient is currently on liquid diet, she is on IV fluid. negative. Plan is the patient is currently on diltiazem, she is on carvedilol, she is on analgesic. She will be given dose of venlafaxine. She will continue on metronidazole. She is on DVT prophylaxis. She has been started on incentive spirometry. She is on Rocephin. She is requesting for Xanax that she usually takes at home at night. She will be followed by Dr. Espana tomorrow. Silvana Salinas MD
[2018-04-20] MEDS: metroNIDAZOLE IV 500 mg/100 ml 500 MG/100 ML BAG IVPB SCH ×3 (05:43→21:35)
[2018-04-20] MEDS: Insulin Reg-LOW-Coverage SC SCH ×4 (07:53→21:40)
--- NOTE | 2018-04-20 08:02 | CP.PCM.PN ---
Subjective - Date & Time of Evaluation Date of Evaluation: 04/20/18 Time of Evaluation: 07:00 - Subjective Subjective: Stable on 5R. No chest pain or SOB. Jennifer cl.liqs and brief amb. yesterday. V/S noted PE: Lungs: clear Cor.: S1S2 Abd.: tender Ext>; no edema Neuro.: alert I/O: 110/560 recorded Labs 04/19 noted. BC X2 NG at 3 days Urine C+S: NG Objective - Vital Signs/Intake and Output Vital Signs (last 24 hours): Temp Pulse Resp BP Pulse Ox 98.7 F 84 18 117/57 L 95 04/19/18 22:59 04/19/18 22:59 04/19/18 22:59 04/19/18 22:59 04/19/18 22:59 Intake and Output: 04/20/18 04/20/18 06:59 18:59 Output Total 10 Balance -10 - Medications Medications: Current Medications Alprazolam (Xanax) 1 mg PO HS [facility]; Protocol Last Admin: 04/19/18 22:07 Dose: 1 mg Carvedilol (Coreg) 25 mg PO BID [facility] Last Admin: 04/19/18 17:15 Dose: 25 mg Diltiazem HCl (Cardizem Cd) 180 mg PO DAILY [facility] Last Admin: 04/19/18 09:20 Dose: 180 mg Heparin Sodium (Porcine) (Heparin) 5,000 units SC Q8 [facility]; Protocol Last Admin: 04/20/18 05:45 Dose: 5,000 units Hydromorphone HCl (Dilaudid) 1 mg IVP Q4H PRN PRN Reason: Pain, moderate (4-7) Last Admin: 04/19/18 13:01 Dose: 1 mg Hydromorphone HCl (Dilaudid) 0.5 mg IVP Q10M PRN PRN Reason: Pain, severe (8-10) Ceftriaxone Sodium (Rocephin 1 Gram Ivpb) 1 gm in 100 mls @ 100 mls/hr IVPB DAILY [facility]; Protocol Last Admin: 04/19/18 09:45 Dose: 100 mls/hr Metronidazole (Flagyl) 500 mg in 100 mls @ 100 mls/hr IVPB Q8 [facility]; Protocol Last Admin: 04/20/18 05:43 Dose: 100 mls/hr Insulin Human Regular (Humulin R Low) 0 units SC ACHS [facility]; Protocol Last Admin: 04/19/18 22:10 Dose: Not Given Ketorolac Tromethamine (Toradol) 30 mg IVP ONCE PRN PRN Reason: Pain, moderate (4-7) Metoclopramide HCl (Reglan) 10 mg IV ONCE PRN PRN Reason: Nausea/Vomiting Ondansetron HCl (Zofran Inj) 4 mg IVP Q6H PRN PRN Reason: Nausea/Vomiting Pantoprazole Sodium (Protonix Inj) 40 mg IVP DAILY [facility] Last Admin: 04/19/18 09:21 Dose: 40 mg Polyethylene Glycol (Miralax) 17 gm PO DAILY [facility] Last Admin: 04/19/18 14:35 Dose: 17 gm Venlafaxine HCl (Effexor Xr) 75 mg PO DAILY [facility] Last Admin: 04/19/18 17:15 Dose: 75 mg - Labs Labs: 04/19/18 07:00 04/19/18 07:00 PT 14.1 SECONDS (9.4-12.5) H 04/18/18 17:15 INR 1.23 04/18/18 17:15 APTT 28.0 Seconds (25.1-36.5) 04/18/18 17:15 Assessment and Plan - Assessment and Plan (Free Text) Assessment: Acute cholecystitis, S/P open Cholecystectomy and LN bx. PAF, on Eliquis pre-op Mod/Sev. MR and Mild TR HBP Diabetes HLD GERD Depression Lio. THR H/O Elbow surgery Fatty Liver Renal Stones Adrenal nodule Plan: As per Surgery, GI, Dr. bermudez and Brad Resume Eliquis and ASA when cleared by Surgery OOB/Ambulation as tolerated
--- NOTE | 2018-04-20 09:12 | PN ---
DATE: 04/19/2018 SUBJECTIVE: The patient is seen sitting in bed on 5R. She underwent cholecystectomy yesterday, which required conversion to an open procedure. She denies any dyspnea at present. She does have incisional pain and some discomfort. CURRENT MEDICATIONS: Include diltiazem CD 180 mg daily, carvedilol 25 mg b.i.d., Dilaudid p.r.n., Flagyl, subcutaneous heparin, insulin coverage, Protonix, Rocephin, Toradol and IV fluids. OBJECTIVE: GENERAL: She is a middle-aged woman, appears comfortable at the present time. VITAL SIGNS: Blood pressure is 128/60 with a pulse of 80 and regular, respirations are 14. She is afebrile. HEENT: No JVD. CHEST: Clear to auscultation and percussion. HEART: PMI displaced laterally with soft systolic murmur at the apex. ABDOMEN: Distended with mild diffuse tenderness. Bowel sounds present. EXTREMITIES: No edema. DIAGNOSTIC DATA: Morning blood work is pending. IMPRESSION: 1. Recent acute cholecystitis, status post open cholecystectomy, recuperating well. 2. Paroxysmal atrial fibrillation, most recently in sinus rhythm. 3. Mitral regurgitation. RECOMMENDATIONS: Current management should continue. Resumption of oral anticoagulant therapy with Eliquis would be reasonable once felt surgically appropriate. Excessive volume infusion should be avoided given her moderately severe mitral regurgitation, although her overall systolic function is normal. We will continue to follow and make further recommendations as appropriate. Puneet Cornejo MD
[2018-04-20] MEDS: diltiaZEM 180 mg/24 Hours CD Cap PO SCH (09:40)
[2018-04-20] MEDS: cefTRIAXone 1 gm 1 GM/100 ML BAG IVPB SCH (09:41)
[2018-04-20] MEDS: POLYETHYLENE GLYCOL 3350 17 GM/Dose PACKET PO SCH (09:41)
[2018-04-20] MEDS: Venlafaxine 75 mg ER Cap PO SCH (09:41)
[2018-04-20] MEDS ORDERED: oxyCODONE 5 mg Immediate Release Tab PO PRN (09:43)
--- NOTE | 2018-04-20 10:27 | CP.PCM.PN ---
<Lawrence Nation - Last Filed: 04/20/18 10:24> Subjective - Date & Time of Evaluation Date of Evaluation: 04/20/18 Time of Evaluation: 10:24 - Subjective Subjective: PGY-[address] Nowak No acute events noted overnight. Patient tolerating full liquid diet. Ambulated briefly in room yesterday. Denies flatus or bowel movement. Pain is controlled. Objective - Vital Signs/Intake and Output Vital Signs (last 24 hours): Temp Pulse Resp BP Pulse Ox 98.7 F 89 18 141/62 95 04/19/18 22:59 04/20/18 09:40 04/19/18 22:59 04/20/18 09:40 04/19/18 22:59 Intake and Output: 04/20/18 04/20/18 06:59 18:59 Output Total 10 Balance -10 - Medications Medications: Current Medications Acetaminophen (Tylenol 325mg Tab) 650 mg PO Q6H PRN PRN Reason: Pain, moderate (4-7) Alprazolam (Xanax) 1 mg PO HS [facility]; Protocol Last Admin: 04/19/18 22:07 Dose: 1 mg Carvedilol (Coreg) 25 mg PO BID [facility] Last Admin: 04/20/18 09:40 Dose: 25 mg Diltiazem HCl (Cardizem Cd) 180 mg PO DAILY [facility] Last Admin: 04/20/18 09:40 Dose: 180 mg Heparin Sodium (Porcine) (Heparin) 5,000 units SC Q8 [facility]; Protocol Last Admin: 04/20/18 05:45 Dose: 5,000 units Ceftriaxone Sodium (Rocephin 1 Gram Ivpb) 1 gm in 100 mls @ 100 mls/hr IVPB DAILY [facility]; Protocol Last Admin: 04/20/18 09:41 Dose: 100 mls/hr Metronidazole (Flagyl) 500 mg in 100 mls @ 100 mls/hr IVPB Q8 [facility]; Protocol Last Admin: 04/20/18 05:43 Dose: 100 mls/hr Insulin Human Regular (Humulin R Low) 0 units SC ACHS [facility]; Protocol Last Admin: 04/20/18 07:53 Dose: 1 units Ketorolac Tromethamine (Toradol) 30 mg IVP ONCE PRN PRN Reason: Pain, moderate (4-7) Metoclopramide HCl (Reglan) 10 mg IV ONCE PRN PRN Reason: Nausea/Vomiting Ondansetron HCl (Zofran Inj) 4 mg IVP Q6H PRN PRN Reason: Nausea/Vomiting Oxycodone HCl (Oxycodone Immediate Release Tab) 5 mg PO Q6H PRN PRN Reason: Pain, severe (8-10) Pantoprazole Sodium (Protonix Inj) 40 mg IVP DAILY [facility] Last Admin: 04/20/18 09:41 Dose: 40 mg Polyethylene Glycol (Miralax) 17 gm PO DAILY [facility] Last Admin: 04/20/18 09:41 Dose: 17 gm Venlafaxine HCl (Effexor Xr) 75 mg PO DAILY [facility] Last Admin: 04/20/18 09:41 Dose: 75 mg - Labs Labs: 04/19/18 07:00 04/19/18 07:00 PT 14.1 SECONDS (9.4-12.5) H 04/18/18 17:15 INR 1.23 04/18/18 17:15 APTT 28.0 Seconds (25.1-36.5) 04/18/18 17:15 - Additional Findings Additional findings: - Constitutional Appears: Non-toxic, No Acute Distress - Head Exam Head Exam: NORMAL INSPECTION - Eye Exam Eye Exam: Normal appearance - Respiratory Exam Respiratory Exam: Clear to Ausculation Bilateral, NORMAL BREATHING PATTERN - Cardiovascular Exam Cardiovascular Exam: REGULAR RHYTHM, +S1, +S2 - GI/Abdominal Exam GI & Abdominal Exam: Soft, Tenderness, Hypoactive Bowel Sounds - Neurological Exam Neurological Exam: Alert, Awake, Oriented x3 - Psychiatric Exam Psychiatric exam: Normal Affect, Normal Mood - Skin Skin Exam: Dry, Normal Color Assessment and Plan - Assessment and Plan (Free Text) Plan: Mrs Boudreaux is a 62 year old female with a PMHx of hypertension, HLD, diabetes, gastritis, kidney stones, AFib, of who presented with sudden right upper quadrant abdominal pain: Acute Uncomplicated Calculous Cholecystitis -S/P laparoscopic converted to open cholecystectomy with IOC on 04/18/2018 -Abd ultrasound: * 1. extensive sludge seen in lumen of gallbladder with gallbladder mildly distended, cholelithiasis mural thickening and positive sonographic griffin sign likely indicate cholecystitis, normal CBD caliber * 2. hepatic steatosis or other infiltrative hepatic process * 3. small simple cyst midpole left kidney -CT abd/pelvis w/ iv contrast: * Findings suspicious for acute or subacute cholecystitis. No biliary tree dilatation appreciable exclusive of the gallbladder. No radiodense choled ocholithiasis. Cholelithiasis identified within the gallbladder lumen. Nonobstructing intrarenal calculus lower pole left kidney. 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 1.2 cm nodule related to the left adrenal gland. Follow-up MRI without contrast to exclude potential mal ignancy though this is not favored. -CT does not show any extrabiliary disorders or complications of acute cholecystitis -hepatitis panel negative -HIDA scan positive. Contrast seen in small bowel. Possibility of incomplete obstruction of CBD still remains. -protonix 40mg ivp qd Elevated LFTs, Downtrending -likely 2/2 to cholecystitis -TBili and Alk Phos elevated however no evidence of CBD obstruction on CT imaging -CBD 3.5mm on abd ultrasound Seen and discussed with Dr Nowak <Kenzie Nowak V - Last Filed: 04/20/18 23:55> Objective - Vital Signs/Intake and Output Vital Signs (last 24 hours): Temp Pulse Resp BP Pulse Ox 98.8 F 86 18 120/66 96 04/20/18 22:43 04/20/18 22:43 04/20/18 22:43 04/20/18 22:43 04/20/18 22:43 Intake and Output: 04/20/18 04/21/18 18:59 06:59 Intake Total 700 Output Total 850 Balance -150 - Medications Medications: Current Medications Acetaminophen (Tylenol 325mg Tab) 650 mg PO Q6H PRN PRN Reason: Pain, moderate (4-7) Alprazolam (Xanax) 1 mg PO HS [facility]; Protocol Last Admin: 04/20/18 21:35 Dose: 1 mg Alprazolam (Xanax) 0.5 mg PO DAILY [facility]; Protocol Stop: 04/28/18 10:01 Apixaban (Eliquis) 5 mg PO BID [facility]; Protocol Last Admin: 04/20/18 17:10 Dose: 5 mg Carvedilol (Coreg) 25 mg PO BID [facility] Last Admin: 04/20/18 17:09 Dose: 25 mg Diltiazem HCl (Cardizem Cd) 180 mg PO DAILY [facility] Last Admin: 04/20/18 09:40 Dose: 180 mg Ceftriaxone Sodium (Rocephin 1 Gram Ivpb) 1 gm in 100 mls @ 100 mls/hr IVPB DAILY [facility]; Protocol Last Admin: 04/20/18 09:41 Dose: 100 mls/hr Metronidazole (Flagyl) 500 mg in 100 mls @ 100 mls/hr IVPB Q8 [facility]; Protocol Last Admin: 04/20/18 21:35 Dose: 100 mls/hr Insulin Human Regular (Humulin R Low) 0 units SC ACHS [facility]; Protocol Last Admin: 04/20/18 21:40 Dose: Not Given Ondansetron HCl (Zofran Inj) 4 mg IVP Q6H PRN PRN Reason: Nausea/Vomiting Pantoprazole Sodium (Protonix Inj) 40 mg IVP DAILY [facility] Last Admin: 04/20/18 09:41 Dose: 40 mg Polyethylene Glycol (Miralax) 17 gm PO DAILY [facility] Last Admin: 04/20/18 09:41 Dose: 17 gm Sennosides (Senokot Tab) 8.6 mg PO DAILY [facility] Last Admin: 04/20/18 12:19 Dose: 8.6 mg Tramadol HCl (Ultram) 50 mg PO TID PRN PRN Reason: Pain, Mild (1-3) Venlafaxine HCl (Effexor Xr) 75 mg PO DAILY [facility] Last Admin: 04/20/18 09:41 Dose: 75 mg - Labs Labs: 04/19/18 07:00 04/19/18 07:00 PT 14.1 SECONDS (9.4-12.5) H 04/18/18 17:15 INR 1.23 04/18/18 17:15 APTT 28.0 Seconds (25.1-36.5) 04/18/18 17:15 Attending/Attestation - Attestation I have personally seen and examined this patient.: Yes I have fully participated in the care of the patient.: Yes I have reviewed all pertinent clinical information, including history, physical exam and plan: Yes Notes (Text): p 04/20/18 23:54
--- NOTE | 2018-04-20 11:09 | PN ---
DATE: 04/20/2018 SUBJECTIVE: A 62-year-old white female, status post admission with acute cholecystitis and cholelithiasis. The patient underwent a cholecystectomy by Dr. Lan yesterday. The patient initially was started as a close procedure, but had to be open because they were unable to perform an intraoperative cholangiogram. The patient had an open procedure done. There was extensive scarring of the gallbladder. There was acute and subacute cholecystitis with sludge and cholelithiasis. The patient tolerated the procedure well. She is seen this morning. She is afebrile. Blood pressure is 117/57, pulse is 84. Her white count is 13,000, hemoglobin is 10.7 and blood sugars are 195. The patient does have a history of chronic atrial fibrillation, although recently has converted to sinus rhythm. The patient had been on Eliquis and she was switched to Lovenox. She will be switched back to Eliquis postop. The patient was operated by Dr. Lan and also seen in consultation by Dr. Brown for surgery. Abdomen is tender. Bowel sounds are barely appreciable today and abdomen is mildly distended. Chest is clear to auscultation. Heart examination reveals sinus rhythm with ectopy. Evangelist Espana MD
--- NOTE | 2018-04-20 12:42 | CP.PCM.PN ---
Subjective - Date & Time of Evaluation Date of Evaluation: 04/20/18 Time of Evaluation: 07:25 - Subjective Subjective: General Surgery Progress Note for Dr. Lan 62F, seen and evaluated at bedside this morning. No acute events overnight. Patient pain well controlled, ambulating, tolerating diet. Denies BM or flatus at this time. No other complaints this morning. Denies f/c, n/v/d, CP, SOB, or urinary symptoms. Objective - Vital Signs/Intake and Output Vital Signs (last 24 hours): Temp Pulse Resp BP Pulse Ox 98.7 F 89 18 141/62 95 04/19/18 22:59 04/20/18 09:40 04/19/18 22:59 04/20/18 09:40 04/19/18 22:59 Intake and Output: 04/20/18 04/20/18 06:59 18:59 Output Total 10 Balance -10 - Medications Medications: Current Medications Acetaminophen (Tylenol 325mg Tab) 650 mg PO Q6H PRN PRN Reason: Pain, moderate (4-7) Alprazolam (Xanax) 1 mg PO HS [facility]; Protocol Last Admin: 04/19/18 22:07 Dose: 1 mg Carvedilol (Coreg) 25 mg PO BID [facility] Last Admin: 04/20/18 09:40 Dose: 25 mg Diltiazem HCl (Cardizem Cd) 180 mg PO DAILY [facility] Last Admin: 04/20/18 09:40 Dose: 180 mg Heparin Sodium (Porcine) (Heparin) 5,000 units SC Q8 [facility]; Protocol Last Admin: 04/20/18 05:45 Dose: 5,000 units Ceftriaxone Sodium (Rocephin 1 Gram Ivpb) 1 gm in 100 mls @ 100 mls/hr IVPB DAILY [facility]; Protocol Last Admin: 04/20/18 09:41 Dose: 100 mls/hr Metronidazole (Flagyl) 500 mg in 100 mls @ 100 mls/hr IVPB Q8 [facility]; Protocol Last Admin: 04/20/18 05:43 Dose: 100 mls/hr Insulin Human Regular (Humulin R Low) 0 units SC ACHS [facility]; Protocol Last Admin: 04/20/18 12:16 Dose: 3 units Ketorolac Tromethamine (Toradol) 30 mg IVP ONCE PRN PRN Reason: Pain, moderate (4-7) Metoclopramide HCl (Reglan) 10 mg IV ONCE PRN PRN Reason: Nausea/Vomiting Ondansetron HCl (Zofran Inj) 4 mg IVP Q6H PRN PRN Reason: Nausea/Vomiting Pantoprazole Sodium (Protonix Inj) 40 mg IVP DAILY [facility] Last Admin: 04/20/18 09:41 Dose: 40 mg Polyethylene Glycol (Miralax) 17 gm PO DAILY [facility] Last Admin: 04/20/18 09:41 Dose: 17 gm Sennosides (Senokot Tab) 8.6 mg PO DAILY [facility] Last Admin: 04/20/18 12:19 Dose: 8.6 mg Tramadol HCl (Ultram) 50 mg PO TID PRN PRN Reason: Pain, Mild (1-3) Venlafaxine HCl (Effexor Xr) 75 mg PO DAILY [facility] Last Admin: 04/20/18 09:41 Dose: 75 mg - Labs Labs: 04/19/18 07:00 04/19/18 07:00 PT 14.1 SECONDS (9.4-12.5) H 04/18/18 17:15 INR 1.23 04/18/18 17:15 APTT 28.0 Seconds (25.1-36.5) 04/18/18 17:15 - Constitutional Appears: Well, Non-toxic, No Acute Distress - Head Exam Head Exam: ATRAUMATIC, NORMAL INSPECTION, NORMOCEPHALIC - Eye Exam Eye Exam: EOMI - ENT Exam ENT Exam: Mucous Membranes Moist - GI/Abdominal Exam GI & Abdominal Exam: Soft, Tenderness. absent: Distended - Neurological Exam Neurological Exam: Alert, Awake - Psychiatric Exam Psychiatric exam: Normal Affect, Normal Mood - Skin Additional comments: incisions clean, dry, and intact Assessment and Plan - Assessment and Plan (Free Text) Assessment: 62F s/p laparoscopic converted to open cholecystectomy with IOC POD2 Plan: Start Elqiquis today ADAT Continue IV Abx Continue pain control and antiemetics AE hose Encourage ambulation, OOB and IS use DVT/GI PPX Further medical management per primary team Further recommendations per Dr. Riky Rodas PGY1
--- NOTE | 2018-04-20 14:29 | RAD ---
Date of service: 04/18/2018 PROCEDURE: Operative cholangiogram HISTORY: ? CBD OBST COMPARISON: TECHNIQUE: 93.2 sec of fluoro time. 15.9 mGy. Six images were submitted FINDINGS: Contrast flows into the duodenum without obstruction. There are no filling defects in the common duct IMPRESSION: As above
[2018-04-20] MEDS ORDERED: Venlafaxine 75 mg ER Cap PO SCH (17:30)
--- NOTE | 2018-04-21 07:53 | CP.PCM.PN ---
Subjective - Date & Time of Evaluation Date of Evaluation: 04/21/18 Time of Evaluation: 07:00 - Subjective Subjective: Stable on 5R. No chest pain or SOB. Jennifer full diet and amb. yesterday. + flatus, no BM yet V/S noted PE: Lungs: clear Cor.: S1S2 Abd.: tender Ext>; no edema Neuro.: alert I/O: [id number]/1470recorded BC X2 NG at 4 days Urine C+S: NG Objective - Vital Signs/Intake and Output Vital Signs (last 24 hours): Temp Pulse Resp BP Pulse Ox 98.8 F 86 18 120/66 96 04/20/18 22:43 04/20/18 22:43 04/20/18 22:43 04/20/18 22:43 04/20/18 22:43 Intake and Output: 04/21/18 04/21/18 06:59 18:59 Intake Total 880 Output Total 1470 Balance -590 - Medications Medications: Current Medications Acetaminophen (Tylenol 325mg Tab) 650 mg PO Q6H PRN PRN Reason: Pain, moderate (4-7) Alprazolam (Xanax) 1 mg PO HS [facility]; Protocol Last Admin: 04/20/18 21:35 Dose: 1 mg Alprazolam (Xanax) 0.5 mg PO DAILY [facility]; Protocol Stop: 04/28/18 10:01 Apixaban (Eliquis) 5 mg PO BID [facility]; Protocol Last Admin: 04/20/18 17:10 Dose: 5 mg Carvedilol (Coreg) 25 mg PO BID [facility] Last Admin: 04/20/18 17:09 Dose: 25 mg Diltiazem HCl (Cardizem Cd) 180 mg PO DAILY [facility] Last Admin: 04/20/18 09:40 Dose: 180 mg Ceftriaxone Sodium (Rocephin 1 Gram Ivpb) 1 gm in 100 mls @ 100 mls/hr IVPB DAILY [facility]; Protocol Last Admin: 04/20/18 09:41 Dose: 100 mls/hr Metronidazole (Flagyl) 500 mg in 100 mls @ 100 mls/hr IVPB Q8 [facility]; Protocol Last Admin: 04/20/18 21:35 Dose: 100 mls/hr Insulin Human Regular (Humulin R Low) 0 units SC ACHS [facility]; Protocol Last Admin: 04/20/18 21:40 Dose: Not Given Ondansetron HCl (Zofran Inj) 4 mg IVP Q6H PRN PRN Reason: Nausea/Vomiting Pantoprazole Sodium (Protonix Inj) 40 mg IVP DAILY [facility] Last Admin: 04/20/18 09:41 Dose: 40 mg Polyethylene Glycol (Miralax) 17 gm PO DAILY [facility] Last Admin: 04/20/18 09:41 Dose: 17 gm Sennosides (Senokot Tab) 8.6 mg PO DAILY [facility] Last Admin: 04/20/18 12:19 Dose: 8.6 mg Tramadol HCl (Ultram) 50 mg PO TID PRN PRN Reason: Pain, Mild (1-3) Venlafaxine HCl (Effexor Xr) 75 mg PO DAILY [facility] Last Admin: 04/20/18 09:41 Dose: 75 mg - Labs Labs: 04/19/18 07:00 04/19/18 07:00 PT 14.1 SECONDS (9.4-12.5) H 04/18/18 17:15 INR 1.23 04/18/18 17:15 APTT 28.0 Seconds (25.1-36.5) 04/18/18 17:15 Assessment and Plan - Assessment and Plan (Free Text) Assessment: Acute cholecystitis, S/P open Cholecystectomy and LN bx. PAF, on Eliquis pre-op Mod/Sev. MR and Mild TR HBP Diabetes HLD GERD Depression Lio. THR H/O Elbow surgery Fatty Liver Renal Stones Adrenal nodule Plan: As per Surgery, GI, Dr. Espana OOB/Ambulation as tolerated Home soon.
[2018-04-21] MEDS: metroNIDAZOLE IV 500 mg/100 ml 500 MG/100 ML BAG IVPB SCH (08:15)
[2018-04-21] MEDS: Insulin Reg-LOW-Coverage SC SCH ×5 (08:26→22:00)
--- NOTE | 2018-04-21 09:08 | CP.PCM.PN ---
Subjective - Date & Time of Evaluation Date of Evaluation: 04/21/18 Time of Evaluation: 08:52 - Subjective Subjective: General Surgery Progress Note for Dr. Lan 62F seen and evaluated at bedside this morning. No acute overnight events. No complaints this morning. Ambulating, tolerating diet, using IS, and pain controlled. BM and passing flatus. Denies f/c, n/v/d, SOB, CP, or urinary symptoms. Objective - Vital Signs/Intake and Output Vital Signs (last 24 hours): Temp Pulse Resp BP Pulse Ox 98 F 84 20 120/61 96 04/21/18 06:00 04/21/18 06:00 04/21/18 06:00 04/21/18 06:00 04/21/18 06:00 Intake and Output: 04/21/18 04/21/18 06:59 18:59 Intake Total 880 Output Total 1470 Balance -590 - Medications Medications: Current Medications Acetaminophen (Tylenol 325mg Tab) 650 mg PO Q6H PRN PRN Reason: Pain, moderate (4-7) Alprazolam (Xanax) 1 mg PO HS [facility]; Protocol Last Admin: 04/20/18 21:35 Dose: 1 mg Alprazolam (Xanax) 0.5 mg PO DAILY [facility]; Protocol Stop: 04/28/18 10:01 Apixaban (Eliquis) 5 mg PO BID [facility]; Protocol Last Admin: 04/20/18 17:10 Dose: 5 mg Carvedilol (Coreg) 25 mg PO BID [facility] Last Admin: 04/20/18 17:09 Dose: 25 mg Ciprofloxacin (Cipro) 500 mg PO Q12 [facility]; Protocol Stop: 04/22/18 08:44 Diltiazem HCl (Cardizem Cd) 180 mg PO DAILY [facility] Last Admin: 04/20/18 09:40 Dose: 180 mg Insulin Human Regular (Humulin R Low) 0 units SC ACHS [facility]; Protocol Last Admin: 04/21/18 08:26 Dose: 1 units Metronidazole (Flagyl) 500 mg PO Q8 [facility]; Protocol Tramadol HCl (Ultram) 50 mg PO TID PRN PRN Reason: Pain, Mild (1-3) Venlafaxine HCl (Effexor Xr) 75 mg PO DAILY [facility] Last Admin: 11/05/18 09:41 Dose: 75 mg - Labs Labs: 04/19/18 07:00 04/19/18 07:00 PT 14.1 SECONDS (9.4-12.5) H 04/18/18 17:15 INR 1.23 04/18/18 17:15 APTT 28.0 Seconds (25.1-36.5) 04/18/18 17:15 - Constitutional Appears: Well, Non-toxic, No Acute Distress - Head Exam Head Exam: ATRAUMATIC, NORMAL INSPECTION, NORMOCEPHALIC - Eye Exam Eye Exam: EOMI - ENT Exam ENT Exam: Mucous Membranes Moist - Cardiovascular Exam Cardiovascular Exam: REGULAR RHYTHM, +S1, +S2. absent: Murmur - GI/Abdominal Exam GI & Abdominal Exam: Soft, Tenderness, Normal Bowel Sounds - Neurological Exam Neurological Exam: Alert, Awake, Oriented x3 - Psychiatric Exam Psychiatric exam: Normal Affect, Normal Mood - Skin Skin Exam: Dry, Intact, Normal Color, Warm Additional comments: RUQ and umbilical incision c/d/i Assessment and Plan - Assessment and Plan (Free Text) Assessment: 62F s/p lap converted to open cholecystectomy POD3 Plan: Continue regular diet Encourage ambulation and IS use Analgesics and anti-emetics as needed Monitor Drain output Continue IV Abx Further recommendations per Dr. Riky Rodas PGY1
--- NOTE | 2018-04-21 09:45 | PN ---
DATE: 04/21/2018 SUBJECTIVE: A 62-year-old white female post open cholecystectomy and common bile duct aspiration. The patient is doing well. White count is 13,000, which is stable. Cultures are negative. The patient has received antibiotics since we started her admission. She is currently afebrile, tolerating her diet well without diarrhea. PHYSICAL EXAMINATION: VITAL SIGNS: Vital signs are stable. She is afebrile. CHEST: Clear to auscultation and percussion. HEART: Regular sinus rhythm without ectopy. ABDOMEN: Bowel sounds are normoactive. Abdomen is soft. Staple suture line is intact without any evidence of infection or discharge or dehiscence. The patient has had flatus, but no bowel movements. Her bowel sounds are normoactive. EXTREMITIES: Without cyanosis, clubbing or edema. The patient is not moving. She is ambulatory. ASSESSMENT AND PLAN: We will discontinue her IV antibiotics and switch to p.o. antibiotics to complete a course. She will continue to ambulate and increase her diet and most likely be discharged home in the next 24 to 48 hours. Evangelist Espana MD
[2018-04-21] MEDS: Venlafaxine 75 mg ER Cap PO SCH (10:37)
[2018-04-21] MEDS: diltiaZEM 180 mg/24 Hours CD Cap PO SCH (10:37)
--- NOTE | 2018-04-21 11:03 | CP.PCM.PN ---
<Lawrence Nation - Last Filed: 04/21/18 11:00> Subjective - Date & Time of Evaluation Date of Evaluation: 04/21/18 Time of Evaluation: 11:01 - Subjective Subjective: PGY-[address] Nowak No acute events noted overnight. Patient tolerating solid foods. Ambulating, passing flatus, having bowel movements. Pain is controlled. No fevers. Objective - Vital Signs/Intake and Output Vital Signs (last 24 hours): Temp Pulse Resp BP Pulse Ox 98 F 84 20 120/61 96 04/21/18 06:00 04/21/18 06:00 04/21/18 06:00 04/21/18 06:00 04/21/18 06:00 Intake and Output: 04/21/18 04/21/18 06:59 18:59 Intake Total 880 Output Total 1470 Balance -590 - Medications Medications: Current Medications Acetaminophen (Tylenol 325mg Tab) 650 mg PO Q6H PRN PRN Reason: Pain, moderate (4-7) Alprazolam (Xanax) 1 mg PO HS [facility]; Protocol Last Admin: 04/20/18 21:35 Dose: 1 mg Alprazolam (Xanax) 0.5 mg PO DAILY [facility]; Protocol Stop: 04/28/18 10:01 Last Admin: 04/21/18 10:37 Dose: 0.5 mg Apixaban (Eliquis) 5 mg PO BID [facility]; Protocol Last Admin: 04/21/18 10:37 Dose: 5 mg Carvedilol (Coreg) 25 mg PO BID [facility] [place] Last Admin: 04/21/18 10:37 Dose: 25 mg Ciprofloxacin (Cipro) 500 mg PO Q12 [facility]; Protocol Stop: 04/22/18 08:44 Last Admin: 04/21/18 10:37 Dose: 500 mg Diltiazem HCl (Cardizem Cd) 180 mg PO DAILY [facility] [place] Last Admin: 04/21/18 10:37 Dose: 180 mg Insulin Human Regular (Humulin R Low) 0 units SC ACHS [facility]; Protocol Last Admin: 04/21/18 08:26 Dose: 1 units Metronidazole (Flagyl) 500 mg PO Q8 [facility]; Protocol Last Admin: 04/21/18 10:39 Dose: 500 mg Tramadol HCl (Ultram) 50 mg PO TID PRN PRN Reason: Pain, Mild (1-3) Venlafaxine HCl (Effexor Xr) 75 mg PO DAILY [facility] Last Admin: 04/21/18 10:37 Dose: 75 mg - Labs Labs: 04/19/18 07:00 04/19/18 07:00 PT 14.1 SECONDS (9.4-12.5) H 04/18/18 17:15 INR 1.23 04/18/18 17:15 APTT 28.0 Seconds (25.1-36.5) 04/18/18 17:15 - Additional Findings Additional findings: - Constitutional Appears: Non-toxic, No Acute Distress - Head Exam Head Exam: NORMAL INSPECTION - Eye Exam Eye Exam: Normal appearance - Respiratory Exam Respiratory Exam: Clear to Ausculation Bilateral, NORMAL BREATHING PATTERN - Cardiovascular Exam Cardiovascular Exam: REGULAR RHYTHM, +S1, +S2 - GI/Abdominal Exam GI & Abdominal Exam: Soft, Tenderness, Hypoactive Bowel Sounds - Neurological Exam Neurological Exam: Alert, Awake, Oriented x3 - Psychiatric Exam Psychiatric exam: Normal Affect, Normal Mood - Skin Skin Exam: Dry, Normal Color Assessment and Plan - Assessment and Plan (Free Text) Plan: Mrs Boudreaux is a 62 year old female with a PMHx of hypertension, HLD, diabetes, gastritis, kidney stones, AFib, of who presented with sudden right upper quadrant abdominal pain: Acute Uncomplicated Calculous Cholecystitis -S/P laparoscopic converted to open cholecystectomy with IOC on 04/18/2018 -Abd ultrasound: * 1. extensive sludge seen in lumen of gallbladder with gallbladder mildly distended, cholelithiasis mural thickening and positive sonographic griffin sign likely indicate cholecystitis, normal CBD caliber * 2. hepatic steatosis or other infiltrative hepatic process * 3. small simple cyst midpole left kidney -CT abd/pelvis w/ iv contrast: * Findings suspicious for acute or subacute cholecystitis. No biliary tree dilatation appreciable exclusive of the gallbladder. No radiodense choledocholithiasis. Cholelithiasis identified within the gallbladder lumen. Nonobstructing intrarenal calculus lower pole left kidney. 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 1.2 cm nodule related to the left adrenal gland. Follow-up MRI without contrast to exclude potential malignancy though this is not favored. -CT does not show any extrabiliary disorders or complications of acute cholecystitis -hepatitis panel negative -HIDA scan positive. Contrast seen in small bowel. Possibility of incomplete obstruction of CBD still remains. -transitioned to po abx, passing gas, tolerating solid foods, having bowel movements, no fevers, eliquis is resumed per primary/cardio Elevated LFTs, Downtrending -likely 2/2 to cholecystitis -TBili and Alk Phos elevated however no evidence of CBD obstruction on CT imaging -CBD 3.5mm on abd ultrasound Seen and discussed with Dr Nowak <Kenzie Nowak V - Last Filed: 04/21/18 19:32> Objective - Vital Signs/Intake and Output Vital Signs (last 24 hours): Temp Pulse Resp BP Pulse Ox 98.1 F 77 18 115/54 L 98 04/21/18 14:00 04/21/18 14:00 04/21/18 14:00 04/21/18 14:00 04/21/18 14:00 - Medications Medications: Current Medications Acetaminophen (Tylenol 325mg Tab) 650 mg PO Q6H PRN PRN Reason: Pain, moderate (4-7) Alprazolam (Xanax) 1 mg PO HS [facility]; Protocol Last Admin: 04/20/18 21:35 Dose: 1 mg Alprazolam (Xanax) 0.5 mg PO DAILY [facility] [place]; Protocol Stop: 04/28/18 10:01 Last Admin: 04/21/18 10:37 Dose: 0.5 mg Apixaban (Eliquis) 5 mg PO BID [facility]; Protocol Last Admin: 04/21/18 18:04 Dose: 5 mg Carvedilol (Coreg) 25 mg PO BID [facility] Last Admin: 04/21/18 18:04 Dose: 25 mg Ciprofloxacin (Cipro) 500 mg PO Q12 [facility]; Protocol Stop: 04/22/18 08:44 Last Admin: 04/21/18 10:37 Dose: 500 mg Diltiazem HCl (Cardizem Cd) 180 mg PO DAILY [facility] Last Admin: 04/21/18 10:37 Dose: 180 mg Insulin Human Regular (Humulin R Low) 0 units SC ACHS [facility]; Protocol Last Admin: 04/21/18 18:05 Dose: 2 units Metronidazole (Flagyl) 500 mg PO Q8 [facility]; Protocol Last Admin: 04/21/18 15:08 Dose: 500 mg Tramadol HCl (Ultram) 50 mg PO TID PRN PRN Reason: Pain, Mild (1-3) Venlafaxine HCl (Effexor Xr) 75 mg PO DAILY [facility] Last Admin: 04/21/18 10:37 Dose: 75 mg - Labs Labs: 04/19/18 07:00 04/19/18 07:00 PT 14.1 SECONDS (9.4-12.5) H 04/18/18 17:15 INR 1.23 04/18/18 17:15 APTT 28.0 Seconds (25.1-36.5) 04/18/18 17:15 Attending/Attestation - Attestation I have personally seen and examined this patient.: Yes I have fully participated in the care of the patient.: Yes I have reviewed all pertinent clinical information, including history, physical exam and plan: Yes Notes (Text): This is an addendum to GI progress report dictated by the GI Fellow.The patient was seen and examined earlier. Medical records, lab studies, imagings were reviewed. Last 24 hours events reviewed. Agreed with the above treatment plan as outlined in GI Fellow 's notes with the addition of the following Patient was feeling better was complaining of some discomfort at op site LFT shows downward trend No recent labs available Repeat labs in AM Continue antibiotics 04/21/18 19:31
[2018-04-22 07:12] LABS: BASO # 0.01 K/mm3 (0.0-2.0); BASO % 0.1 % (0.0-3.0); EOS # 0.2 (0.0-0.7); EOS % 1.8 % (1.5-5.0); GRAN # 5.98 (1.4-6.5); HEMOGLOBIN 9.7 g/dL (12.0-16.0); LYMPH # 1.9 (1.2-3.4); LYMPH % 21.4 % (22.0-35.0); MEAN CELL VOLUME 92.3 fl (80.0-105.0); MEAN CORPUSCULAR HEMOGLOBIN 29.8 pg (25.0-35.0); MEAN CORPUSCULAR HGB CONC 32.3 g/dl (31.0-37.0); MONO # 0.7 (0.1-0.6); MONO % 7.7 % (1.0-6.0); RBC 3.25 10^6/uL (3.5-6.1); WHITE BLOOD COUNT 8.7 10^3/uL (4.5-11.0)
[2018-04-22] MEDS: Insulin Reg-LOW-Coverage SC SCH ×4 (08:15→16:54)
[2018-04-22 09:00] LABS: ALB/GLOB RATIO 0.8 (1.1-1.8); ALBUMIN 2.3 g/dL (3.0-4.8); ALT/SGPT 47 U/L (7-56); AST/SGOT 14 U/L (14-36); BLOOD UREA NITROGEN 7 mg/dL (7-21); CALCIUM 8.7 mg/dL (8.4-10.5); GFR NON-AFRICAN AMERICAN > 60
--- NOTE | 2018-04-22 09:26 | PN ---
DATE: 04/22/2018 SUBJECTIVE: A 62-year-old white female, status post open cholecystectomy. The patient is on p.o. antibiotics. She is afebrile. PHYSICAL EXAMINATION: VITAL SIGNS: Stable. Heart rate is 100. She has a recent history of atrial fibrillation which is converted to sinus rhythm and ectopy. Blood pressure 118/83. GENERAL: The patient is tolerating diet well. She is out of bed. ABDOMEN: Bowel sounds are normoactive. She is having flatus, but no bowel movements. At this point, she still has a Tomás-Bailey drain with minimal drainage. Her staple line is clean and dry. CHEST: Clear to auscultation and percussion. HEART: Regular sinus rhythm with ectopy. ASSESSMENT AND PLAN: The patient restarted taking her Eliquis. She is ambulating. She will probably be discharged in the next 24 to 48 hours. Evangelist Espana MD
[2018-04-22] MEDS ORDERED: Magnesium Sulfate 2 gm/50 ml 2 GM/50 ML BAG IVPB ONE (09:37)
--- NOTE | 2018-04-22 09:40 | CP.PCM.PN ---
Subjective - Date & Time of Evaluation Date of Evaluation: 04/22/18 Time of Evaluation: 09:38 - Subjective Subjective: PGY-[address] Nowak No acute events noted overnight. Patient tolerating solid foods. Ambulating, passing flatus, having bowel movements. Pain is controlled. No fevers. Objective - Vital Signs/Intake and Output Vital Signs (last 24 hours): Temp Pulse Resp BP Pulse Ox 97.2 F L 85 18 128/63 95 04/22/18 06:00 04/22/18 06:00 04/22/18 06:00 04/22/18 06:00 04/22/18 06:00 Intake and Output: 04/22/18 04/22/18 06:59 18:59 Intake Total 1300 Output Total 0 Balance 1300 - Medications Medications: Current Medications Acetaminophen (Tylenol 325mg Tab) 650 mg PO Q6H PRN PRN Reason: Pain, moderate (4-7) Alprazolam (Xanax) 1 mg PO HS [facility]S [facility]; Protocol Last Admin: 04/21/18 21:31 Dose: 1 mg Alprazolam (Xanax) 0.5 mg PO DAILY [facility]; Protocol Stop: 04/28/18 10:01 Last Admin: 04/21/18 10:37 Dose: 0.5 mg Apixaban (Eliquis) 5 mg PO BID [facility]S [facility]; Protocol Last Admin: 04/21/18 18:04 Dose: 5 mg Carvedilol (Coreg) 25 mg PO BID [facility]S AT [facility] Last Admin: 04/21/18 18:04 Dose: 25 mg Diltiazem HCl (Cardizem Cd) 180 mg PO DAILY [facility]S [facility] Last Admin: 04/21/18 10:37 Dose: 180 mg Magnesium Sulfate (Magnesium Sulfate 2 Gm/50 Ml Water) 2 gm in 50 mls @ 50 mls/hr IVPB ONCE ONE Stop: 04/22/18 10:36 Insulin Human Regular (Humulin R Low) 0 units SC ACHS [facility]S [facility]; Protocol Last Admin: 04/22/18 08:15 Dose: 1 units Metronidazole (Flagyl) 500 mg PO Q8 [facility]; Protocol Last Admin: 04/22/18 05:34 Dose: 500 mg Tramadol HCl (Ultram) 50 mg PO TID PRN PRN Reason: Pain, Mild (1-3) Venlafaxine HCl (Effexor Xr) 75 mg PO DAILY [facility] Last Admin: 04/21/18 10:37 Dose: 75 mg - Labs Labs: 04/22/18 06:30 04/22/18 07:30 PT 14.1 SECONDS (9.4-12.5) H 04/18/18 17:15 INR 1.23 04/18/18 17:15 APTT 28.0 Seconds (25.1-36.5) 04/18/18 17:15 - Additional Findings Additional findings: - Constitutional Appears: Non-toxic, No Acute Distress - Head Exam Head Exam: NORMAL INSPECTION - Eye Exam Eye Exam: Normal appearance - Respiratory Exam Respiratory Exam: Clear to Ausculation Bilateral, NORMAL BREATHING PATTERN - Cardiovascular Exam Cardiovascular Exam: REGULAR RHYTHM, +S1, +S2 - GI/Abdominal Exam GI & Abdominal Exam: Soft, Tenderness, Hypoactive Bowel Sounds - Neurological Exam Neurological Exam: Alert, Awake, Oriented x3 - Psychiatric Exam Psychiatric exam: Normal Affect, Normal Mood - Skin Skin Exam: Dry, Normal Color Assessment and Plan - Assessment and Plan (Free Text) Plan: Mrs Boudreaux is a 62 year old female with a PMHx of hypertension, HLD, diabetes, gastritis, kidney stones, AFib, of who presented with sudden right upper quadrant abdominal pain: Acute Uncomplicated Calculous Cholecystitis -S/P laparoscopic converted to open cholecystectomy with IOC on 04/18/2018 -Abd ultrasound: * 1. extensive sludge seen in lumen of gallbladder with gallbladder mildly distended, cholelithiasis mural thickening and positive sonographic griffin sign likely indicate cholecystitis, normal CBD caliber * 2. hepatic steatosis or other infiltrative hepatic process * 3. small simple cyst midpole left kidney -CT abd/pelvis w/ iv contrast: * Findings suspicious for acute or subacute cholecystitis. No biliary tree dilatation appreciable exclusive of the gallbladder. No radiodense choledocholithiasis. Cholelithiasis identified within the gallbladder lumen. Nonobstructing intrarenal calculus lower pole left kidney. 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 1.2 cm nodule related to the left adrenal gland. Follow-up MRI without contrast to exclude potential malignancy though this is not favored. -CT does not show any extrabiliary disorders or complications of acute cholecystitis -hepatitis panel negative -HIDA scan positive. Contrast seen in small bowel. Possibility of incomplete obstruction of CBD still remains. -transitioned to po abx, passing gas, tolerating solid foods, having bowel movements, no fevers, eliquis is resumed per primary/cardio Elevated LFTs, Downtrending -likely 2/2 to cholecystitis -TBili and Alk Phos elevated however no evidence of CBD obstruction on CT imaging -CBD 3.5mm on abd ultrasound Seen and discussed with Dr Nowak
[2018-04-22] MEDS: diltiaZEM 180 mg/24 Hours CD Cap PO SCH (10:41)
[2018-04-22] MEDS: Venlafaxine 75 mg ER Cap PO SCH (10:42)
--- NOTE | 2018-04-22 11:52 | CP.PCM.PN ---
Subjective - Date & Time of Evaluation Date of Evaluation: 04/22/18 Time of Evaluation: 09:00 - Subjective Subjective: General Surgery Progress Note for Dr. Guerrero covering for Dr. Lan 62F seen and evaluated at bedside this morning. No acute events overnight. Pt has not had BM but is passing flatus. Ambulating and tolerating diet. Pain is controlled and has not needed medication. Denies f/c, n/v/d, SOB, CP, or urinary symptoms. Objective - Vital Signs/Intake and Output Vital Signs (last 24 hours): Temp Pulse Resp BP Pulse Ox 97.2 F L 85 18 128/63 95 04/22/18 06:00 04/22/18 10:42 04/22/18 06:00 04/22/18 10:42 04/22/18 06:00 Intake and Output: 04/22/18 04/22/18 06:59 18:59 Intake Total 1300 Output Total 0 Balance 1300 - Medications Medications: Current Medications Acetaminophen (Tylenol 325mg Tab) 650 mg PO Q6H PRN PRN Reason: Pain, moderate (4-7) Alprazolam (Xanax) 1 mg PO HS [facility]AK; Protocol Last Admin: 04/21/18 21:31 Dose: 1 mg Alprazolam (Xanax) 0.5 mg PO DAILY [facility]AK; Protocol Stop: 04/28/18 10:01 Last Admin: 04/22/18 10:43 Dose: 0.5 mg Apixaban (Eliquis) 5 mg PO BID [facility]AK; Protocol Last Admin: 04/22/18 10:42 Dose: 5 mg Carvedilol (Coreg) 25 mg PO BID [facility] Last Admin: 04/22/18 10:42 Dose: 25 mg Diltiazem HCl (Cardizem Cd) 180 mg PO DAILY [facility]AK Last Admin: 04/22/18 10:41 Dose: 180 mg Insulin Human Regular (Humulin R Low) 0 units SC ACHS [facility]; Protocol Last Admin: 04/22/18 08:15 Dose: 1 units Metronidazole (Flagyl) 500 mg PO Q8 [facility]AK; Protocol Last Admin: 04/22/18 05:34 Dose: 500 mg Tramadol HCl (Ultram) 50 mg PO TID PRN PRN Reason: Pain, Mild (1-3) Venlafaxine HCl (Effexor Xr) 75 mg PO DAILY [facility] Last Admin: 04/22/18 10:42 Dose: 75 mg - Labs Labs: 04/22/18 06:30 04/22/18 07:30 PT 14.1 SECONDS (9.4-12.5) H 04/18/18 17:15 INR 1.23 04/18/18 17:15 APTT 28.0 Seconds (25.1-36.5) 04/18/18 17:15 - Constitutional Appears: Well, Non-toxic, No Acute Distress - Head Exam Head Exam: ATRAUMATIC, NORMAL INSPECTION, NORMOCEPHALIC - ENT Exam ENT Exam: Mucous Membranes Moist - GI/Abdominal Exam GI & Abdominal Exam: Soft, Tenderness, Normal Bowel Sounds Additional comments: wiley drain in RUQ c/d/i draining serous fluid - Neurological Exam Neurological Exam: Alert, Awake, Oriented x3 - Psychiatric Exam Psychiatric exam: Normal Affect, Normal Mood - Skin Skin Exam: Dry, Intact, Normal Color, Warm Assessment and Plan - Assessment and Plan (Free Text) Assessment: 62F s/p lap converted to open cholecystectomy POD4 Plan: Will remove drain today Home with Wesley and Raciel for 7 days Dulcolax supp prior to discharge Cleared for discharge from a surgical standpoint Yaron Rodas PGY1
--- NOTE | 2018-04-22 12:16 | CP.PCM.PCO ---
Physician Communication Note - Physician Communication Note Physician Communication Note: home in am/rx diet-await BM
[2018-04-23 07:40] LABS: MEAN CELL VOLUME 92.5 fl (80.0-105.0); MEAN CORPUSCULAR HEMOGLOBIN 29.9 pg (25.0-35.0); MEAN CORPUSCULAR HGB CONC 32.3 g/dl (31.0-37.0); MEAN PLATELET VOLUME 9.8 fl (7.0-11.0); RBC 3.35 10^6/uL (3.5-6.1); RED CELL DISTRIBUTION WIDTH 14.9 % (11.5-14.5); WHITE BLOOD COUNT 7.6 10^3/uL (4.5-11.0)
[2018-04-23 08:05] LABS: ALB/GLOB RATIO 0.9 (1.1-1.8); ALBUMIN 2.8 g/dL (3.0-4.8); ALT/SGPT 41 U/L (7-56); AST/SGOT 21 U/L (14-36); BLOOD UREA NITROGEN 6 mg/dL (7-21); CALCIUM 8.7 mg/dL (8.4-10.5); GFR NON-AFRICAN AMERICAN > 60
[2018-04-23] MEDS ORDERED: Magnesium Sulfate 2 gm/50 ml 2 GM/50 ML BAG IVPB ONE (08:19)
[2018-04-23] MEDS: Insulin Reg-LOW-Coverage SC SCH ×2 (08:26→12:15)
[2018-04-23] MEDS: Venlafaxine 75 mg ER Cap PO SCH (09:37)
[2018-04-23] MEDS: diltiaZEM 180 mg/24 Hours CD Cap PO SCH (09:37)
--- NOTE | 2018-04-23 12:21 | CP.PCM.PN ---
<Lawrence Nation - Last Filed: 04/23/18 12:19> Subjective - Date & Time of Evaluation Date of Evaluation: 04/23/18 Time of Evaluation: 12:19 - Subjective Subjective: PGY-[address] Nowak No acute events noted overnight. Patient tolerating solid foods. Ambulating, passing flatus, having bowel movements. Pain is controlled. No fevers. Objective - Vital Signs/Intake and Output Vital Signs (last 24 hours): Temp Pulse Resp BP Pulse Ox 98 F 87 20 118/70 96 04/23/18 06:00 04/23/18 09:37 04/23/18 06:00 04/23/18 09:37 04/23/18 06:00 Intake and Output: 04/23/18 04/23/18 06:59 18:59 Intake Total 800 Balance 800 - Medications Medications: Current Medications Acetaminophen (Tylenol 325mg Tab) 650 mg PO Q6H PRN PRN Reason: Pain, moderate (4-7) Alprazolam (Xanax) 1 mg PO HS [facility]; Protocol Last Admin: 04/22/18 21:16 Dose: 1 mg Alprazolam (Xanax) 0.5 mg PO DAILY [facility]; Protocol Stop: 04/28/18 10:01 Last Admin: 04/23/18 09:38 Dose: 0.5 mg Apixaban (Eliquis) 5 mg PO BID [facility]; Protocol Last Admin: 04/23/18 09:38 Dose: 5 mg Carvedilol (Coreg) 25 mg PO BID [facility] Last Admin: 04/23/18 09:36 Dose: 25 mg Diltiazem HCl (Cardizem Cd) 180 mg PO DAILY [facility] Last Admin: 04/23/18 09:37 Dose: 180 mg Insulin Human Regular (Humulin R Low) 0 units SC ACHS [facility]; Protocol Last Admin: 04/23/18 12:15 Dose: 1 units Metronidazole (Flagyl) 500 mg PO Q8 [facility]; Protocol Last Admin: 04/23/18 06:17 Dose: 500 mg Tramadol HCl (Ultram) 50 mg PO TID PRN PRN Reason: Pain, Mild (1-3) Venlafaxine HCl (Effexor Xr) 75 mg PO DAILY [facility] Last Admin: 04/23/18 09:37 Dose: 75 mg - Labs Labs: 04/23/18 07:00 04/23/18 07:00 PT 14.1 SECONDS (9.4-12.5) H 04/18/18 17:15 INR 1.23 04/18/18 17:15 APTT 28.0 Seconds (25.1-36.5) 04/18/18 17:15 - Additional Findings Additional findings: - Constitutional Appears: Non-toxic, No Acute Distress - Head Exam Head Exam: NORMAL INSPECTION - Eye Exam Eye Exam: Normal appearance - Respiratory Exam Respiratory Exam: Clear to Ausculation Bilateral, NORMAL BREATHING PATTERN - Cardiovascular Exam Cardiovascular Exam: REGULAR RHYTHM, +S1, +S2 - GI/Abdominal Exam GI & Abdominal Exam: Soft, Tenderness, Hypoactive Bowel Sounds - Neurological Exam Neurological Exam: Alert, Awake, Oriented x3 - Psychiatric Exam Psychiatric exam: Normal Affect, Normal Mood - Skin Skin Exam: Dry, Normal Color Assessment and Plan - Assessment and Plan (Free Text) Plan: Mrs Boudreaux is a 62 year old female with a PMHx of hypertension, HLD, diabetes, gastritis, kidney stones, AFib, of who presented with sudden right upper quadrant abdominal pain: Acute Uncomplicated Calculous Cholecystitis -S/P laparoscopic converted to open cholecystectomy with IOC on 04/18/2018 -Abd ultrasound: * 1. extensive sludge seen in lumen of gallbladder with gallbladder mildly distended, cholelithiasis mural thickening and positive sonographic griffin sign likely indicate cholecystitis, normal CBD caliber * 2. hepatic steatosis or other infiltrative hepatic process * 3. small simple cyst midpole left kidney -CT abd/pelvis w/ iv contrast: * Findings suspicious for acute or subacute cholecystitis. No biliary tree dilatation appreciable exclusive of the gallbladder. No radiodense choledocholithiasis. Cholelithiasis identified within the gallbladder lumen. Nonobstructing intrarenal calculus lower pole left kidney. 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 1.2 cm nodule related to the left adrenal gland. Follow-up MRI without contrast to exclude potential malignancy though this is not favored. -CT does not show any extrabiliary disorders or complications of acute cholecystitis -hepatitis panel negative -HIDA scan positive. Contrast seen in small bowel. Possibility of incomplete obstruction of CBD still remains. -transitioned to po abx, passing gas, tolerating solid foods, having bowel movements, no fevers, eliquis is resumed per primary/cardio Elevated LFTs, Downtrending -likely 2/2 to cholecystitis -TBili and Alk Phos elevated however no evidence of CBD obstruction on CT thai ging -CBD 3.5mm on abd ultrasound Seen and discussed with Dr Nowak <Kenzie Nowak V - Last Filed: 04/24/18 00:08> Objective - Vital Signs/Intake and Output Vital Signs (last 24 hours): Temp Pulse Resp BP Pulse Ox 97.4 F L 80 18 118/62 97 04/23/18 14:00 04/23/18 14:00 04/23/18 14:00 04/23/18 14:00 04/23/18 14:00 - Labs Labs: 04/23/18 07:00 04/23/18 07:00 PT 14.1 SECONDS (9.4-12.5) H 04/18/18 17:15 INR 1.23 04/18/18 17:15 APTT 28.0 Seconds (25.1-36.5) 04/18/18 17:15 Attending/Attestation - Attestation I have personally seen and examined this patient.: Yes I have fully participated in the care of the patient.: Yes I have reviewed all pertinent clinical information, including history, physical exam and plan: Yes Notes (Text): This is an addendum to GI followup report dictated by the Correction Officer Head. The patient was seen and evaluated earlier. Medical records, lab studies, imagings were reviewed. Last 24 hours events reviewed. Agreed with the above treatment plan as outlined in Correction Officer Head 's notes with the addition of the following 04/24/18 00:08
[2018-04-23 14:57] VITALS: BP 118/62; PULSE 80; RESP 18; TEMP 97.4; O2SAT 97
--- NOTE | 2018-04-24 05:59 | DS ---
HISTORY OF PRESENT ILLNESS: The patient is a 62-year-old white female with recent onset of atrial fibrillation, admitted to hospital with acute cholecystis and cholelithiasis. The patient was taken to surgery by Dr. Rodriguez. She was seen in the consultation by Dr. Nowak. The patient underwent attempted laparoscopic cholecystectomy; however, was converted to an open procedure because of inability to do an intraoperative cholangiogram. The patient did well postop. She did have a Tomás-Bailey drain. She was on IV antibiotics. She did tolerate them well. Eventually, her drain was removed. She became afebrile. Her white count dropped from 16,000 to normal 8700. She was continued on her Eliquis postop. Initially her Eliquis was stopped and her surgery was delayed because of the Eliquis on board as an anticoagulant. Eventually after surgery, the patient was restarted on Eliquis. She had no further bleeding. She has converted sinus rhythm postoperatively. Then she should be able to discharge home on improved condition and follows an outpatient to continue a two further days of Cipro and Flagyl. FINAL DISCHARGE DIAGNOSES: The patient with a acute cholecystitis and choledocholilithiasis, atrial fibrillation, non-insulin dependant diabetes mellitus and mild hypertension. The patient would follow in a week. Evangelist sEpana MD
== END 2018-04-23 15:13 | disposition home or self-care (01) | DRG 416 ==
LOC: ED 06:53 → ERH 10:51 → 5RSO 13:45
PROVIDERS: ADMIT Internal Medicine; ATTEND Internal Medicine
PROC: 0DB90ZX Excision of Duodenum, Open Approach, Diagnostic (ICD-10-PCS; 2018-04-17)
PROC: BF131ZZ Fluoroscopy of Gallbladder and Bile Ducts using Low Osmolar Contrast (ICD-10-PCS; 2018-04-17)
PROC: 0FT40ZZ Resection of Gallbladder, Open Approach (ICD-10-PCS; principal; 2018-04-17 15:00)
PROC: 0FJ44ZZ Inspection of Gallbladder, Percutaneous Endoscopic Approach (ICD-10-PCS; 2018-04-17 15:00)
DX: K80.00 Calculus of gallbladder with acute cholecystitis without obstruction (principal); I10 Essential (primary) hypertension; E27.8 Other specified disorders of adrenal gland; I08.1 Rheumatic disorders of both mitral and tricuspid valves; I48.0 Paroxysmal atrial fibrillation; I25.10 Atherosclerotic heart disease of native coronary artery without angina pectoris; E11.9 Type 2 diabetes mellitus without complications; I48.2 Chronic atrial fibrillation; F41.9 Anxiety disorder, unspecified; F32.9 Major depressive disorder, single episode, unspecified; K21.9 Gastro-esophageal reflux disease without esophagitis; K29.70 Gastritis, unspecified, without bleeding; E78.5 Hyperlipidemia, unspecified; K76.0 Fatty (change of) liver, not elsewhere classified; N20.0 Calculus of kidney; N28.1 Cyst of kidney, acquired; Z96.643 Presence of artificial hip joint, bilateral; Z53.31 Laparoscopic surgical procedure converted to open procedure; Z79.01 Long term (current) use of anticoagulants; Z79.84 Long term (current) use of oral hypoglycemic drugs; Z88.2 Allergy status to sulfonamides